=== PATIENT | female | born 1945 | race African-American/Black ===

== ENCOUNTER 2017-04-25 21:37 | Inpatient (IN) | payer MEDICARE, MEDICAID ==
[~2017-04-25] VITALS: Ht 149.9 cm; Wt 61.2 kg
[~2017-04-25 21:37] MED LIST: AM10 PO; AMLO10TA4 PO; ASPI-1073 PO; DOCU-138 PO; FERR-63 PO; FLUT16SP15; LISI40TA4 PO; LORA10TA7 PO; OMEP40CA34 PO; POTA10CA42 PO; [UNRECOGNIZED DRUG - CODE] PO
[2017-04-25] MEDS ORDERED: NITROGLYCERIN OINT 1GM/INCH UDPKT TD STA (21:43)
[2017-04-25] MEDS ORDERED: FUROSEMIDE 40MG/4ML VIAL IV STA (21:43)
[2017-04-25] MEDS ORDERED: ALBUTEROL (0.083%) 2.5MG/3ML NEB HHN STA (21:43)
[2017-04-25] MEDS ORDERED: METHYLPREDNISOLONE SOD SUCC 125 MG/2 ML VIAL IV STA (21:43)
[2017-04-25] MEDS ORDERED: IPRATROPIUM BROMIDE (0.02%) 0.5MG/2.5ML NEB HHN STA (21:43)
[2017-04-25] MEDS ORDERED: MAGNESIUM 2 G PREMIX 50 ML IV ONE (21:45)
[2017-04-25 22:30] LABS: BG BASE EXCESS 0.1 mmol/L (-2.0-2.0); BG BILEVEL POS AIRWAY PRESSURE 15/5; BG CARBOXYHEMOGLOBIN 0.7 % (0.5-1.5); BG DEOXYHEMOGLOBIN 2.1 % (0.0-5.0); BG FRACTION INSPIRED OXYGEN 50; BG HCO3 ACT 23.8 mmol/L (22.0-26.0); BG METHEMOGLOBIN 0.3 % (0.0-1.5); BG OXYGEN SATURATION 97.9 % (92.0-98.5); BG OXYHEMOGLOBIN 96.9 % (94.0-97.0); BG PCO2 35.2 mmHg (35.0-45.0); BG PH 7.447 (7.350-7.450); BG PO2 109.6 mmHg (75.0-100.0); BG SAMPLE SITE RIGHT RADIAL; BG TOTAL HEMOGLOBIN 12.7 g/dL (12.0-18.0); BG VENT MODE MASK - BIPAP
[2017-04-25 22:38] LABS: BASOPHILS % 0.7 % (0.0-2.0); HEMATOCRIT. 36.1 % (36.0-48.0); MEAN CORPUSCULAR HEMOGLOBIN 31.7 pg (28.0-32.0); MEAN CORPUSCULAR VOLUME 95.4 fL (81.0-99.0); MEAN PLATELET VOLUME 9.3 fl (7.4-10.4); MONOCYTES % 8.7 % (2.0-8.0); NEUTROPHILS % 65.6 % (40.0-76.0); PLATELET 171 x1000/uL (130-400); RED BLOOD CELL COUNT 3.78 mill/uL (4.2-5.4); RED CELL DISTRIBUTION WIDTH 12.9 % (11.6-14.6)
[2017-04-25 22:41] LABS: INR 1.1; PROTHROMBIN TIME 11.5 sec (9.4-11.6)
[2017-04-25 22:43] LABS: CHLORIDE 102 mEq/L (98-107)
[2017-04-25 22:55] LABS: CARBON DIOXIDE 27 mEq/L (21-32); TROPONIN I 0.36 ng/mL (0.00-0.04)
[2017-04-25] MEDS ORDERED: ASPIRIN 325MG TABLET PO ONE (23:15)
[2017-04-25] MEDS ORDERED: CLONIDINE 0.1MG TABLET PO PRN (23:30)
[2017-04-25] MEDS ORDERED: MAGNESIUM/ALUMINUM HYDROXIDE/SIMETHICONE 30ML UDC PO PRN (23:30)
[2017-04-25] MEDS ORDERED: ONDANSETRON HCL 4MG/2ML VIAL IV PRN (23:30)
[2017-04-25] MEDS ORDERED: DOCUSATE SODIUM 100MG CAPSULE PO PRN (23:30)
[2017-04-25] MEDS ORDERED: IPRATROPIUM/ALBUTEROL 0.5-3(2.5)MG/3ML NEB INH PRN (23:30)
[2017-04-25] MEDS ORDERED: ENOXAPARIN 40MG/0.4ML SYR SUBCUT SCH (23:30)
[2017-04-25] MEDS ORDERED: ACETAMINOPHEN 325MG TABLET PO PRN (23:30)
[2017-04-26] VITALS (14 sets, daily range): BP systolic 117–169; BP diastolic 52–74
[2017-04-26 00:45] LABS: CHLORIDE 104 mEq/L (98-107)
[2017-04-26 00:50] LABS: CARBON DIOXIDE 25 mEq/L (21-32)
[2017-04-26] MEDS ORDERED: ENOXAPARIN 40MG/0.4ML SYR SUBCUT SCH (02:15)
[2017-04-26] MEDS: METHYLPREDNISOLONE SOD SUCC 40 MG/ML VIAL IV SCH ×3 (05:40→21:54)
[2017-04-26 06:16] LABS: HEMATOCRIT. 36.1 % (36.0-48.0); HEMOGLOBIN. 12.2 g/dL (12.0-16.0); MEAN CORPUSCULAR HEMOGLOBIN 31.9 pg (28.0-32.0); MEAN CORPUSCULAR VOLUME 94.6 fL (81.0-99.0); MEAN PLATELET VOLUME 9.9 fl (7.4-10.4); PLATELET 172 x1000/uL (130-400); RED BLOOD CELL COUNT 3.82 mill/uL (4.2-5.4); RED CELL DISTRIBUTION WIDTH 12.7 % (11.6-14.6)
[2017-04-26 06:57] LABS: CREATINE KINASE MB FRACTION 2.7 ng/mL (0.5-3.6)
[2017-04-26 08:23] LABS: CLARITY URINE CLEAR (CLEAR); COLOR URINE YELLOW (YELLOW); GLUCOSE URINE NEGATIVE (NEGATIVE); KETONES URINE NEGATIVE (NEGATIVE); LEUKOCYTE ESTERASE URINE NEGATIVE (NEGATIVE); NITRITE URINE NEGATIVE (NEGATIVE); OCCULT BLOOD URINE NEGATIVE (NEGATIVE); PROTEIN URINE NEGATIVE (NEGATIVE); SPECIFIC GRAVITY URINE 1.017 (1.005-1.030); UROBILINOGEN URINE 0.2 E.U./dL (0.2-1.0)
[2017-04-26 08:32] LABS: *AMPHETAMINES SCREEN URINE NEGATIVE (NEGATIVE); *BARBITURATES SCREEN URINE NEGATIVE (NEGATIVE); *BENZODIAZEPINES SCREEN URINE NEGATIVE (NEGATIVE); *COCAINE SCREEN URINE NEGATIVE (NEGATIVE); CANNABINOID URINE SCREEN NEGATIVE (NEGATIVE); METHADONE URINE SCREEN NEGATIVE (NEGATIVE); OPIATES URINE SCREEN NEGATIVE (NEGATIVE); PHENCYCLIDINE URINE SCREEN NEGATIVE (NEGATIVE)
[2017-04-26] MEDS ORDERED: ENOXAPARIN 30MG/0.3ML SYR SUBCUT SCH (09:00)
[2017-04-26] MEDS ORDERED: POTASSIUM CHLORIDE 20MEQ TABLET SR PO NR (09:15)
[2017-04-26] MEDS: ASPIRIN 81MG EC TABLET PO SCH (09:35)
[2017-04-26] MEDS: GUAIFENESIN 600MG ER TABLET PO SCH ×2 (09:35→21:51)
[2017-04-26] MEDS: LORATADINE 10MG TABLET PO SCH (09:36)
[2017-04-26] MEDS: AMLODIPINE 10MG TABLET PO SCH (09:36)
[2017-04-26] MEDS: FERROUS SULFATE 325MG TABLET PO SCH ×2 (09:36→17:06)
[2017-04-26] MEDS: DOCUSATE SODIUM 100MG CAPSULE PO SCH (09:36)
[2017-04-26] MEDS: OMEPRAZOLE 20MG CAPSULE EXTENDED RELEASE PO SCH (09:46)
[2017-04-26] MEDS: POTASSIUM CHLORIDE 20MEQ TABLET SR PO SCH (09:46)
[2017-04-26] MEDS: LISINOPRIL 40MG TABLET PO SCH (09:47)
[2017-04-26] MEDS: FLUTICASONE PROPIONATE 50MCG/SPRAY BOTTLE BOTHNSTRLS SCH (11:19)
[2017-04-26] MEDS: FUROSEMIDE 40MG/4ML VIAL IVP SCH (11:30)
[2017-04-26] MEDS ORDERED: INFLUENZA VIRUS VACCINE 0.5ML SYR IM ONE (12:00)
[2017-04-26] MEDS ORDERED: PNEUMOCOCCAL 23-VAL P-SAC VAC 0.5 ML IM ONE (12:00)
[2017-04-26 13:12] LABS: PLATELET ESTIMATE NORMAL
[2017-04-26] MEDS: IPRATROPIUM/ALBUTEROL 0.5-3(2.5)MG/3ML NEB HHN SCH ×2 (14:15→20:32)
[2017-04-26] MEDS: HYDROCODONE/ACETAMINOPHEN 5/325MG TABLET PO PRN (16:00)
[2017-04-26 16:13] LABS: CREATINE KINASE MB FRACTION 3.3 ng/mL (0.5-3.6)
[2017-04-26 16:24] LABS: TROPONIN I 0.62 ng/mL (0.00-0.04)
[2017-04-26] MEDS: CALCIUM CARBONATE/VITAMIN D3 500MG TABLET PO SCH (17:06)
[2017-04-26] MEDS: DILTIAZEM HCL 60MG TABLET PO SCH ×2 (17:47→21:54)
[2017-04-26] MEDS: BUDESONIDE 0.5MG/2ML NEB HHN SCH (20:32)
[2017-04-26] MEDS: AMITRIPTYLINE 10MG TABLET PO SCH (21:51)
[2017-04-26] MEDS: ENOXAPARIN 60MG/0.6ML SYR SUBCUT SCH (21:54)
[2017-04-27] VITALS (13 sets, daily range): BP systolic 111–133; BP diastolic 46–60
[2017-04-27] MEDS: IPRATROPIUM/ALBUTEROL 0.5-3(2.5)MG/3ML NEB HHN SCH ×4 (01:35→20:42)
[2017-04-27] MEDS: METHYLPREDNISOLONE SOD SUCC 40 MG/ML VIAL IV SCH ×2 (06:50→13:31)
[2017-04-27] MEDS: DILTIAZEM HCL 60MG TABLET PO SCH ×3 (06:51→18:08)
[2017-04-27] MEDS: BUDESONIDE 0.5MG/2ML NEB HHN SCH ×2 (08:56→20:42)
[2017-04-27] MEDS ORDERED: ENOXAPARIN 40MG/0.4ML SYR SUBCUT SCH (09:00)
[2017-04-27] MEDS: FERROUS SULFATE 325MG TABLET PO SCH ×2 (09:26→18:08)
[2017-04-27] MEDS: OMEPRAZOLE 20MG CAPSULE EXTENDED RELEASE PO SCH (09:26)
[2017-04-27] MEDS: FUROSEMIDE 40MG/4ML VIAL IVP SCH (09:27)
[2017-04-27] MEDS: FLUTICASONE PROPIONATE 50MCG/SPRAY BOTTLE BOTHNSTRLS SCH (09:27)
[2017-04-27] MEDS: LORATADINE 10MG TABLET PO SCH (09:28)
[2017-04-27] MEDS: POTASSIUM CHLORIDE 20MEQ TABLET SR PO SCH (09:29)
[2017-04-27] MEDS: GUAIFENESIN 600MG ER TABLET PO SCH ×2 (09:29→22:03)
[2017-04-27] MEDS: ASPIRIN 81MG EC TABLET PO SCH (09:29)
[2017-04-27] MEDS: DOCUSATE SODIUM 100MG CAPSULE PO SCH (09:29)
[2017-04-27] MEDS: AMLODIPINE 10MG TABLET PO SCH (09:30)
[2017-04-27] MEDS: LISINOPRIL 40MG TABLET PO SCH (09:31)
[2017-04-27] MEDS: ENOXAPARIN 60MG/0.6ML SYR SUBCUT SCH ×2 (09:31→22:06)
[2017-04-27] MEDS: CALCIUM CARBONATE/VITAMIN D3 500MG TABLET PO SCH ×2 (13:31→18:07)
[2017-04-27] MEDS ORDERED: POTASSIUM CHLORIDE 20MEQ/PACKET GT NR (14:30)
[2017-04-27] MEDS ORDERED: POTASSIUM CHLORIDE 20MEQ TABLET SR PO ONE (14:30)
[2017-04-27] MEDS: PREDNISONE 20MG TABLET PO SCH (18:09)
[2017-04-27] MEDS: AMITRIPTYLINE 10MG TABLET PO SCH (22:03)
[2017-04-27] MEDS: SILDENAFIL CITRATE 20MG TABLET PO SCH (22:05)
[2017-04-28] VITALS (12 sets, daily range): BP systolic 101–139; BP diastolic 47–63
[2017-04-28] MEDS: IPRATROPIUM/ALBUTEROL 0.5-3(2.5)MG/3ML NEB HHN SCH ×4 (00:38→21:00)
[2017-04-28] MEDS: SILDENAFIL CITRATE 20MG TABLET PO SCH ×3 (05:21→22:05)
[2017-04-28] MEDS: DILTIAZEM HCL 60MG TABLET PO SCH ×4 (05:22→18:36)
[2017-04-28 07:11] LABS: HEMATOCRIT. 36.3 % (36.0-48.0); HEMOGLOBIN. 11.7 g/dL (12.0-16.0); MEAN CORPUSCULAR HEMOGLOBIN 30.6 pg (28.0-32.0); MEAN CORPUSCULAR VOLUME 94.9 fL (81.0-99.0); MEAN PLATELET VOLUME 10.2 fl (7.4-10.4); PLATELET 189 x1000/uL (130-400); RED BLOOD CELL COUNT 3.82 mill/uL (4.2-5.4)
[2017-04-28 07:54] LABS: CARBON DIOXIDE 23 mEq/L (21-32); CHLORIDE 106 mEq/L (98-107)
[2017-04-28] MEDS: BUDESONIDE 0.5MG/2ML NEB HHN SCH ×2 (08:00→21:00)
[2017-04-28] MEDS: FUROSEMIDE 40MG/4ML VIAL IVP SCH (10:07)
[2017-04-28] MEDS: FLUTICASONE PROPIONATE 50MCG/SPRAY BOTTLE BOTHNSTRLS SCH (10:07)
[2017-04-28] MEDS: ENOXAPARIN 60MG/0.6ML SYR SUBCUT SCH ×2 (10:07→22:04)
[2017-04-28] MEDS: FERROUS SULFATE 325MG TABLET PO SCH ×2 (10:08→18:33)
[2017-04-28] MEDS: AMLODIPINE 10MG TABLET PO SCH (10:08)
[2017-04-28] MEDS: CALCIUM CARBONATE/VITAMIN D3 500MG TABLET PO SCH ×2 (10:08→18:33)
[2017-04-28] MEDS: POTASSIUM CHLORIDE 20MEQ TABLET SR PO SCH (10:08)
[2017-04-28] MEDS: OMEPRAZOLE 20MG CAPSULE EXTENDED RELEASE PO SCH (10:08)
[2017-04-28] MEDS: LORATADINE 10MG TABLET PO SCH (10:09)
[2017-04-28] MEDS: ASPIRIN 81MG EC TABLET PO SCH (10:09)
[2017-04-28] MEDS: DOCUSATE SODIUM 100MG CAPSULE PO SCH (10:09)
[2017-04-28] MEDS: PREDNISONE 20MG TABLET PO SCH (10:09)
[2017-04-28] MEDS: LISINOPRIL 40MG TABLET PO SCH (10:09)
[2017-04-28] MEDS: GUAIFENESIN 600MG ER TABLET PO SCH ×2 (10:23→22:04)
[2017-04-28 13:40] LABS: PLATELET ESTIMATE NORMAL
[2017-04-28] MEDS: AMITRIPTYLINE 10MG TABLET PO SCH (22:05)
[2017-04-29] VITALS (12 sets, daily range): BP systolic 102–130; BP diastolic 42–69
[2017-04-29] MEDS: IPRATROPIUM/ALBUTEROL 0.5-3(2.5)MG/3ML NEB HHN SCH ×4 (00:50→20:31)
[2017-04-29] MEDS: DILTIAZEM HCL 60MG TABLET PO SCH ×4 (01:00→17:37)
[2017-04-29] MEDS: SILDENAFIL CITRATE 20MG TABLET PO SCH ×3 (06:27→22:00)
[2017-04-29] MEDS: BUDESONIDE 0.5MG/2ML NEB HHN SCH ×2 (09:07→20:29)
[2017-04-29] MEDS: FUROSEMIDE 40MG/4ML VIAL IVP SCH (10:04)
[2017-04-29] MEDS: ENOXAPARIN 60MG/0.6ML SYR SUBCUT SCH ×2 (10:04→20:51)
[2017-04-29] MEDS: FLUTICASONE PROPIONATE 50MCG/SPRAY BOTTLE BOTHNSTRLS SCH (10:05)
[2017-04-29] MEDS: GUAIFENESIN 600MG ER TABLET PO SCH ×2 (10:05→20:51)
[2017-04-29] MEDS: FERROUS SULFATE 325MG TABLET PO SCH ×2 (10:05→17:36)
[2017-04-29] MEDS: PREDNISONE 20MG TABLET PO SCH (10:05)
[2017-04-29] MEDS: LORATADINE 10MG TABLET PO SCH (10:05)
[2017-04-29] MEDS: CALCIUM CARBONATE/VITAMIN D3 500MG TABLET PO SCH ×2 (10:06→17:36)
[2017-04-29] MEDS: FAMOTIDINE 20MG TABLET PO SCH (10:06)
[2017-04-29] MEDS: DOCUSATE SODIUM 100MG CAPSULE PO SCH (10:06)
[2017-04-29] MEDS: POTASSIUM CHLORIDE 20MEQ TABLET SR PO SCH (10:06)
[2017-04-29] MEDS: ASPIRIN 81MG EC TABLET PO SCH (10:06)
[2017-04-29] MEDS: LISINOPRIL 40MG TABLET PO SCH (10:15)
[2017-04-29] MEDS: AMLODIPINE 10MG TABLET PO SCH (10:15)
[2017-04-29] MEDS: AMITRIPTYLINE 10MG TABLET PO SCH (20:50)
[2017-04-30] VITALS (9 sets, daily range): BP systolic 91–140; BP diastolic 37–90
[2017-04-30] MEDS: IPRATROPIUM/ALBUTEROL 0.5-3(2.5)MG/3ML NEB HHN SCH ×3 (03:20→13:49)
[2017-04-30] MEDS: SILDENAFIL CITRATE 20MG TABLET PO SCH ×2 (05:57→14:12)
[2017-04-30] MEDS: DILTIAZEM HCL 60MG TABLET PO SCH ×3 (05:57→12:00)
[2017-04-30 06:23] LABS: BASOPHILS % 0.3 % (0.0-2.0); HEMATOCRIT. 40.8 % (36.0-48.0); HEMOGLOBIN. 13.4 g/dL (12.0-16.0); LYMPHOCYTES % 14.2 % (20.0-50.0); MEAN CORPUSCULAR HEMOGLOBIN 31.2 pg (28.0-32.0); MEAN CORPUSCULAR VOLUME 95.3 fL (81.0-99.0); MEAN PLATELET VOLUME 9.5 fl (7.4-10.4); MONOCYTES % 11.7 % (2.0-8.0); NEUTROPHILS % 73.8 % (40.0-76.0); PLATELET 202 x1000/uL (130-400); RED BLOOD CELL COUNT 4.28 mill/uL (4.2-5.4); RED CELL DISTRIBUTION WIDTH 13.5 % (11.6-14.6)
[2017-04-30 06:46] LABS: CARBON DIOXIDE 28 mEq/L (21-32); CHLORIDE 102 mEq/L (98-107)
[2017-04-30] MEDS: PREDNISONE 20MG TABLET PO SCH (08:30)
[2017-04-30] MEDS: GUAIFENESIN 600MG ER TABLET PO SCH (08:30)
[2017-04-30] MEDS: LORATADINE 10MG TABLET PO SCH (08:30)
[2017-04-30] MEDS: FERROUS SULFATE 325MG TABLET PO SCH (08:30)
[2017-04-30] MEDS: ENOXAPARIN 60MG/0.6ML SYR SUBCUT SCH (08:30)
[2017-04-30] MEDS: LISINOPRIL 40MG TABLET PO SCH (08:31)
[2017-04-30] MEDS: CALCIUM CARBONATE/VITAMIN D3 500MG TABLET PO SCH (08:31)
[2017-04-30] MEDS: FAMOTIDINE 20MG TABLET PO SCH (08:31)
[2017-04-30] MEDS: POTASSIUM CHLORIDE 20MEQ TABLET SR PO SCH (08:31)
[2017-04-30] MEDS: AMLODIPINE 10MG TABLET PO SCH (08:31)
[2017-04-30] MEDS: DOCUSATE SODIUM 100MG CAPSULE PO SCH (08:31)
[2017-04-30] MEDS: ASPIRIN 81MG EC TABLET PO SCH (08:31)
[2017-04-30] MEDS: FUROSEMIDE 40MG/4ML VIAL IVP SCH (08:32)
[2017-04-30] MEDS: HYDROCODONE/ACETAMINOPHEN 5/325MG TABLET PO PRN (08:33)
[2017-04-30] MEDS ORDERED: DILT240C91 PO (09:49)
[2017-04-30] MEDS ORDERED: P20 PO (09:49)
[2017-04-30] MEDS ORDERED: REV20 PO (09:49)
[2017-04-30] MEDS ORDERED: ALBU6.7H INH (09:49)
[2017-05-01 09:11] LABS: ANTI-NUCLEAR ANTIBODIES DIRECT Negative (Negative); DRVVT LA 40.6 sec (0.0-47.0); PTT-LA 43.5 sec (0.0-51.9)
[2017-05-01 10:07] LABS: LUPUS ANTICOAG INTERPRETATION Comment: (.)
[2017-05-01 13:09] LABS: ANTI-MYELOPEROXIDASE AB < 9.0 U/mL (0.0-9.0); ANTI-PROTEINASE 3 ABS < 3.5 U/mL (0.0-3.5)
[2017-05-01 14:25] LABS: ATYPICAL P-ANCA <1:20 titer (Neg:<1:20); CYTOPLASMIC C-ANCA <1:20 titer (Neg:<1:20); PERINUCLEAR P-ANCA <1:20 titer (Neg:<1:20)
== END 2017-04-30 17:11 | disposition home or self-care (01) | DRG 291 ==
LOC: ER 21:54 → 5EST 23:06 → EDBEDREQ 23:06 → EDBEDREQTM 23:06 → CANRESERV 04-26 00:41 → ENRESERV 04-26 00:41
PROVIDERS: ADMIT Internal Medicine; ATTEND Internal Medicine
PROC: 5A09357 Assistance with Respiratory Ventilation, Less than 24 Consecutive Hours, Continuous Positive Airway Pressure (ICD-10-PCS; principal; 2017-04-25)
DX: I11.0 Hypertensive heart disease with heart failure (principal); J96.20 Acute and chronic respiratory failure, unspecified whether with hypoxia or hypercapnia; J84.9 Interstitial pulmonary disease, unspecified; Q25.6 Stenosis of pulmonary artery; I08.1 Rheumatic disorders of both mitral and tricuspid valves; I24.9 Acute ischemic heart disease, unspecified; I31.3 Pericardial effusion (noninflammatory); I50.43 Acute on chronic combined systolic (congestive) and diastolic (congestive) heart failure; I48.91 Unspecified atrial fibrillation; D64.9 Anemia, unspecified; N28.9 Disorder of kidney and ureter, unspecified; I70.0 Atherosclerosis of aorta; K21.9 Gastro-esophageal reflux disease without esophagitis; E04.1 Nontoxic single thyroid nodule; K44.9 Diaphragmatic hernia without obstruction or gangrene; J44.9 Chronic obstructive pulmonary disease, unspecified; K80.20 Calculus of gallbladder without cholecystitis without obstruction; M54.30 Sciatica, unspecified side; R59.0 Localized enlarged lymph nodes; Z99.81 Dependence on supplemental oxygen; Z88.0 Allergy status to penicillin; Z79.82 Long term (current) use of aspirin; Z79.899 Other long term (current) drug therapy; Z87.891 Personal history of nicotine dependence; Z87.01 Personal history of pneumonia (recurrent)
CPT/HCPCS: 36415; 36600; 71010; 71250; 78582; 80048; 80053; 80061; 80305; 81003; 82375; 82550; 82553; 82805; 83520; 83605; 83690; 83735; 83880; 84443; 84484; 85025; 85379; 85610; 85613; 85732; 86038; 86256; 86431; 87040; 87070; 90686; 90732; 93005; 93306; 93970; 94640; 94660; 94664; 96374; 96375; 97116; 97162; 99291; A9558; J1650; J1940; J2920; J2930; J3475; J7512; J7611; J7620; J7626

== ENCOUNTER 2018-07-09 03:02 | Inpatient (IN) | payer MEDICARE, MEDICAID ==
[~2018-07-09] VITALS: Ht 149.9 cm; Wt 59.0 kg
[2018-07-09] VITALS (8 sets, daily range): BP systolic 96–147; BP diastolic 49–84
[~2018-07-09 03:02] MED LIST changes: +ALBU6.7H INH; -AM10 PO; -AMLO10TA4 PO; -ASPI-1073 PO; +AZIT250T12 PO; +DILT30TA38 PO; -FERR-63 PO; -FLUT16SP15; -LISI40TA4 PO; -LORA10TA7 PO; -OMEP40CA34 PO; +P20 MT; -POTA10CA42 PO; +PRED10TA23 MT; +PRED5TAB MT; +REV20 PO; -[UNRECOGNIZED DRUG - CODE] PO
[2018-07-09] MEDS ORDERED: IPRATROPIUM BROMIDE (0.02%) 0.5MG/2.5ML NEB HHN STA (03:25)
[2018-07-09] MEDS ORDERED: MAGNESIUM 2 G PREMIX 50 ML IV ONE (03:30)
[2018-07-09] MEDS: ALBUTEROL (0.083%) 2.5MG/3ML NEB HHN SCH ×3 (03:40→05:25)
[2018-07-09 03:44] LABS: BASOPHILS % 0.4 % (0.0-2.0); EOSINOPHILS % 5.1 % (0.0-5.0); HEMATOCRIT. 41.3 % (36.0-48.0); MEAN CORPUSCULAR HEMOGLOBIN 29.3 pg (28.0-32.0); MEAN CORPUSCULAR VOLUME 92.8 fL (81.0-99.0); MEAN PLATELET VOLUME 9.1 fl (7.4-10.4); MONOCYTES % 11.7 % (2.0-8.0); NEUTROPHILS % 43.8 % (40.0-76.0); PLATELET 128 x1000/uL (130-400); RED BLOOD CELL COUNT 4.45 mill/uL (4.2-5.4)
[2018-07-09 03:47] LABS: CHLORIDE 110 mEq/L (98-107)
[2018-07-09] MEDS ORDERED: ENOXAPARIN 60MG/0.6ML SYR SUBCUT SCH (05:00)
[2018-07-09 05:02] LABS: PARTIAL THROMBOPLASTIN TIME 29.4 sec (23.4-31.0)
[2018-07-09] MEDS ORDERED: LEVOFLOXACIN 750MG PREMIX 150 ML IV ONE (06:00)
[2018-07-09] MEDS ORDERED: IOHEXOL-350 100 ML BOTTLE ONE (06:56)
[2018-07-09] MEDS ORDERED: ACETAMINOPHEN 325MG TABLET PO PRN (09:15)
[2018-07-09] MEDS ORDERED: GUAIFENESIN-DM 200MG-20MG/10ML UDC PO PRN (09:15)
[2018-07-09] MEDS ORDERED: FUROSEMIDE 40MG/4ML VIAL IVP SCH ×2 (09:15→17:00)
[2018-07-09] MEDS ORDERED: ONDANSETRON HCL 4MG/2ML INJ IV PRN (09:15)
[2018-07-09] MEDS ORDERED: IPRATROPIUM/ALBUTEROL 0.5-3(2.5)MG/3ML NEB HHN PRN ×2 (09:30→12:00)
[2018-07-09] MEDS ORDERED: AMLODIPINE 5MG TABLET PO SCH (09:30)
[2018-07-09] MEDS ORDERED: LISI40TA4 MT (10:16)
[2018-07-09] MEDS ORDERED: ATOR20TA65 PO (10:16)
[2018-07-09] MEDS ORDERED: DILT240T12 MT (10:16)
[2018-07-09] MEDS ORDERED: FLUT15.88 BOTHNSTRLS (10:16)
[2018-07-09] MEDS ORDERED: RANI150C12 MT (10:16)
[2018-07-09] MEDS ORDERED: DILT120C11 MT (10:16)
[2018-07-09] MEDS ORDERED: UMEC1DIS IH (10:16)
[2018-07-09] MEDS ORDERED: TIOT18CA3 INH (10:16)
[2018-07-09] MEDS ORDERED: METO25TA6 MT (10:16)
[2018-07-09 11:26] LABS: BG BILEVEL POS AIRWAY PRESSURE 15/5; BG CARBOXYHEMOGLOBIN 0.9 % (0.5-1.5); BG DEOXYHEMOGLOBIN 2.1 % (0.0-5.0); BG FRACTION INSPIRED OXYGEN 50; BG HCO3 ACT 23.7 mmol/L (22.0-26.0); BG METHEMOGLOBIN 0.4 % (0.0-1.5); BG OXYGEN SATURATION 97.9 % (92.0-98.5); BG OXYHEMOGLOBIN 96.6 % (94.0-97.0); BG PCO2 39.4 mmHg (35.0-45.0); BG PH 7.397 (7.350-7.450); BG PO2 100.9 mmHg (75.0-100.0); BG SAMPLE SITE LEFT BRACHIAL; BG VENT MODE MASK - BIPAP; BG VENT RATE 16 set
[2018-07-09] MEDS: IPRATROPIUM/ALBUTEROL 0.5-3(2.5)MG/3ML NEB HHN SCH ×3 (14:18→20:23)
[2018-07-09] MEDS: BUDESONIDE 0.5MG/2ML NEB HHN SCH ×2 (14:19→20:23)
[2018-07-09] MEDS: DILTIAZEM HCL 30MG TABLET PO SCH ×2 (15:01→22:17)
[2018-07-09] MEDS: SILDENAFIL CITRATE 20MG TABLET PO SCH ×2 (15:02→22:17)
[2018-07-09] MEDS ORDERED: MONTELUKAST SODIUM 10MG TABLET PO SCH (17:00)
[2018-07-10] VITALS (12 sets, daily range): BP systolic 92–133; BP diastolic 46–75
[2018-07-10] MEDS: IPRATROPIUM/ALBUTEROL 0.5-3(2.5)MG/3ML NEB HHN SCH ×4 (00:32→12:10)
[2018-07-10 06:21] LABS: BASOPHILS % 0.6 % (0.0-2.0); EOSINOPHILS % 2.2 % (0.0-5.0); HEMATOCRIT. 37.2 % (36.0-48.0); HEMOGLOBIN. 12.2 g/dL (12.0-16.0); LYMPHOCYTES % 24.2 % (20.0-50.0); MEAN CORPUSCULAR VOLUME 91.6 fL (81.0-99.0); MEAN PLATELET VOLUME 9.8 fl (7.4-10.4); MONOCYTES % 12.5 % (2.0-8.0); NEUTROPHILS % 60.5 % (40.0-76.0); PLATELET 131 x1000/uL (130-400); RED BLOOD CELL COUNT 4.06 mill/uL (4.2-5.4); RED CELL DISTRIBUTION WIDTH 15.6 % (11.6-14.6)
[2018-07-10] MEDS: SILDENAFIL CITRATE 20MG TABLET PO SCH ×3 (06:36→21:36)
[2018-07-10] MEDS: DILTIAZEM HCL 30MG TABLET PO SCH ×3 (06:36→21:37)
[2018-07-10] MEDS: BUDESONIDE 0.5MG/2ML NEB HHN SCH ×2 (07:19→21:21)
[2018-07-10] MEDS: ENOXAPARIN 30MG/0.3ML SYR SUBCUT SCH (08:28)
[2018-07-10] MEDS ORDERED: FUROSEMIDE 40MG/4ML VIAL IVP NR (10:30)
[2018-07-10] MEDS ORDERED: BENZONATATE 100MG CAPSULE PO PRN (10:30)
[2018-07-10] MEDS ORDERED: DILTIAZEM HCL 60MG TABLET PO SCH (14:00)
[2018-07-10] MEDS ORDERED: SODIUM CHLORIDE 0.9% 1,000 ML IV SCH (16:30)
[2018-07-10 19:15] LABS: *AMPHETAMINES SCREEN URINE NEGATIVE (NEGATIVE); *BARBITURATES SCREEN URINE NEGATIVE (NEGATIVE); *BENZODIAZEPINES SCREEN URINE NEGATIVE (NEGATIVE); *COCAINE SCREEN URINE NEGATIVE (NEGATIVE)
[2018-07-10 19:16] LABS: CANNABINOID URINE SCREEN NEGATIVE (NEGATIVE); METHADONE URINE SCREEN NEGATIVE (NEGATIVE); OPIATES URINE SCREEN NEGATIVE (NEGATIVE); PHENCYCLIDINE URINE SCREEN NEGATIVE (NEGATIVE)
[2018-07-11] VITALS (10 sets, daily range): BP systolic 110–143; BP diastolic 57–79
[2018-07-11] MEDS: SILDENAFIL CITRATE 20MG TABLET PO SCH ×2 (05:57→13:43)
[2018-07-11] MEDS: DILTIAZEM HCL 30MG TABLET PO SCH (05:58)
[2018-07-11 06:57] LABS: BASOPHILS % 0.6 % (0.0-2.0); EOSINOPHILS % 2.9 % (0.0-5.0); HEMATOCRIT. 37.9 % (36.0-48.0); HEMOGLOBIN. 12.2 g/dL (12.0-16.0); LYMPHOCYTES % 23.2 % (20.0-50.0); MEAN CORPUSCULAR HEMOGLOBIN 29.6 pg (28.0-32.0); MEAN CORPUSCULAR VOLUME 91.7 fL (81.0-99.0); MEAN PLATELET VOLUME 9.8 fl (7.4-10.4); MONOCYTES % 14.9 % (2.0-8.0); NEUTROPHILS % 58.4 % (40.0-76.0); PLATELET 128 x1000/uL (130-400); RED BLOOD CELL COUNT 4.14 mill/uL (4.2-5.4); RED CELL DISTRIBUTION WIDTH 15.8 % (11.6-14.6)
[2018-07-11] MEDS: BUDESONIDE 0.5MG/2ML NEB HHN SCH (08:05)
[2018-07-11] MEDS: ENOXAPARIN 30MG/0.3ML SYR SUBCUT SCH (08:17)
[2018-07-11] MEDS ORDERED: FUROSEMIDE 20MG TABLET PO SCH (10:30)
[2018-07-11 12:42] LABS: T4 FREE 1.21 ng/dL (0.76-1.46)
[2018-07-11] MEDS ORDERED: NA PHOS,M-B/NA PHOS,DI-BA ENEMA 118ML PR NR (13:15)
[2018-07-11] MEDS ORDERED: LACTULOSE 20G/30ML UDC PO NR (13:15)
[2018-07-11] MEDS ORDERED: VERA80TA2 PO (14:00)
[2018-07-11] MEDS ORDERED: POLY17PO3 MT (14:00)
[2018-07-11] MEDS ORDERED: VERAPAMIL HCL 80 MG TABLET PO SCH (14:00)
[2018-07-11] MEDS ORDERED: FURO20TA4 PO (14:00)
[2018-07-11] MEDS ORDERED: FURO40TA5 MT (14:03)
[2018-07-12] MEDS ORDERED: POLYETHYLENE GLYCOL 3350 (17GM) 1 DOSE PACK PO SCH (09:00)
== END 2018-07-11 18:00 | disposition home or self-care (01) | DRG 871 ==
LOC: ER 03:25 → EDBEDREQ 05:02 → EDBEDREQTM 05:02 → 3WST 06:09 → EDBEDREQSVC 06:12 → EDBEDREQTM 06:12 → ENRESERV 07:41
PROVIDERS: ADMIT Internal Medicine; ATTEND Internal Medicine
PROC: 5A09357 Assistance with Respiratory Ventilation, Less than 24 Consecutive Hours, Continuous Positive Airway Pressure (ICD-10-PCS; principal; 2018-07-09)
DX: A41.9 Sepsis, unspecified organism (principal); I50.33 Acute on chronic diastolic (congestive) heart failure; J96.20 Acute and chronic respiratory failure, unspecified whether with hypoxia or hypercapnia; J18.9 Pneumonia, unspecified organism; I13.0 Hypertensive heart and chronic kidney disease with heart failure and stage 1 through stage 4 chronic kidney disease, or unspecified chronic kidney disease; E44.1 Mild protein-calorie malnutrition; J44.1 Chronic obstructive pulmonary disease with (acute) exacerbation; J44.0 Chronic obstructive pulmonary disease with (acute) lower respiratory infection; I42.1 Obstructive hypertrophic cardiomyopathy; I45.10 Unspecified right bundle-branch block; R59.0 Localized enlarged lymph nodes; I08.0 Rheumatic disorders of both mitral and aortic valves; D64.9 Anemia, unspecified; N18.3 Chronic kidney disease, stage 3 (moderate); Z99.81 Dependence on supplemental oxygen; E87.8 Other disorders of electrolyte and fluid balance, not elsewhere classified; I27.20 Pulmonary hypertension, unspecified; I48.91 Unspecified atrial fibrillation; M54.30 Sciatica, unspecified side; E07.9 Disorder of thyroid, unspecified; F16.90 Hallucinogen use, unspecified, uncomplicated; I25.10 Atherosclerotic heart disease of native coronary artery without angina pectoris; I73.9 Peripheral vascular disease, unspecified; Z82.49 Family history of ischemic heart disease and other diseases of the circulatory system; Z87.01 Personal history of pneumonia (recurrent); Z87.891 Personal history of nicotine dependence; Z68.26 Body mass index [BMI] 26.0-26.9, adult; Z88.0 Allergy status to penicillin; Z79.899 Other long term (current) drug therapy; Z71.51 Drug abuse counseling and surveillance of drug abuser
CPT/HCPCS: 36415; 36600; 71045; 71275; 80048; 80305; 82375; 82805; 83735; 83880; 84145; 84439; 84481; 84484; 85379; 87804; 93005; 94640; 94660; 96365; 96372; 96375; 97116; 97162; 99285; J1650; J1940; J1956; J3475; J7030; J7611; J7620; J7626; Q9967

== ENCOUNTER 2018-07-29 06:42 | Inpatient (IN) | payer MEDICARE, MEDICAID ==
[2018-07-29] VITALS (7 sets, daily range): BP systolic 117–138; BP diastolic 56–67
[~2018-07-29] VITALS: Ht 149.9 cm; Wt 55.4 kg
[~2018-07-29 06:42] MED LIST changes: +ATOR20TA65 PO; -AZIT250T12 PO; -DILT30TA38 PO; +FLUT15.88 BOTHNSTRLS; +FURO40TA5 MT; -P20 MT; +POLY17PO3 MT; -PRED10TA23 MT; -PRED5TAB MT; +TIOT18CA3 INH; +VERA80TA2 PO
[2018-07-29] MEDS ORDERED: IPRATROPIUM BROMIDE (0.02%) 0.5MG/2.5ML NEB HHN STA (07:10)
[2018-07-29] MEDS ORDERED: METHYLPREDNISOLONE SOD SUCC 125 MG/2 ML VIAL IV STA (07:10)
[2018-07-29] MEDS ORDERED: ALBUTEROL (0.083%) 2.5MG/3ML NEB HHN STA (07:10)
[2018-07-29] MEDS ORDERED: MAGNESIUM 2 G PREMIX 50 ML IV ONE (07:15)
[2018-07-29 08:27] LABS: BASOPHILS % 0.6 % (0.0-2.0); EOSINOPHILS % 6.4 % (0.0-5.0); HEMATOCRIT. 35.4 % (36.0-48.0); HEMOGLOBIN. 11.3 g/dL (12.0-16.0); MEAN CORPUSCULAR HEMOGLOBIN 29.6 pg (28.0-32.0); MEAN CORPUSCULAR VOLUME 92.4 fL (81.0-99.0); MEAN PLATELET VOLUME 9.5 fl (7.4-10.4); MONOCYTES % 11.4 % (2.0-8.0); NEUTROPHILS % 58.6 % (40.0-76.0); PLATELET 161 x1000/uL (130-400); RED BLOOD CELL COUNT 3.83 mill/uL (4.2-5.4); RED CELL DISTRIBUTION WIDTH 15.7 % (11.6-14.6)
[2018-07-29 08:34] LABS: CHLORIDE 103 mEq/L (98-107)
[2018-07-29] MEDS ORDERED: ASPIRIN 81MG TABLET PO ONE (10:15)
[2018-07-29] MEDS ORDERED: ONDANSETRON HCL 4MG/2ML INJ IV PRN (10:45)
[2018-07-29] MEDS ORDERED: GUAIFENESIN-DM 200MG-20MG/10ML UDC PO PRN (10:45)
[2018-07-29] MEDS ORDERED: ACETAMINOPHEN 325MG TABLET PO PRN (10:45)
[2018-07-29] MEDS ORDERED: IPRATROPIUM/ALBUTEROL 0.5-3(2.5)MG/3ML NEB HHN PRN (10:45)
[2018-07-29] MEDS ORDERED: FUROSEMIDE 20MG/2ML VIAL IVP NR (12:45)
[2018-07-29] MEDS ORDERED: AMBR5TAB3 PO (12:55)
[2018-07-29] MEDS: METHYLPREDNISOLONE SOD SUCC 40 MG/ML VIAL IV SCH ×2 (13:44→21:40)
[2018-07-29] MEDS: ENOXAPARIN 30MG/0.3ML SYR SUBCUT SCH (13:45)
[2018-07-29] MEDS: POTASSIUM CHLORIDE 20MEQ TABLET SR PO SCH (15:05)
[2018-07-29] MEDS: SILDENAFIL CITRATE 20MG TABLET PO SCH ×2 (15:05→22:12)
[2018-07-29] MEDS: IPRATROPIUM/ALBUTEROL 0.5-3(2.5)MG/3ML NEB HHN SCH ×2 (15:32→20:48)
[2018-07-29] MEDS: VERAPAMIL HCL 40MG TABLET PO SCH ×2 (15:47→22:13)
[2018-07-29] MEDS: MONTELUKAST SODIUM 10MG TABLET PO SCH (18:21)
[2018-07-29] MEDS: GUAIFENESIN 600MG ER TABLET PO SCH (21:29)
[2018-07-29] MEDS: FUROSEMIDE 20MG TABLET PO SCH (21:29)
[2018-07-30] VITALS (10 sets, daily range): BP systolic 99–129; BP diastolic 42–70
[2018-07-30] MEDS: IPRATROPIUM/ALBUTEROL 0.5-3(2.5)MG/3ML NEB HHN SCH ×5 (01:06→16:00)
[2018-07-30] MEDS: METHYLPREDNISOLONE SOD SUCC 40 MG/ML VIAL IV SCH (05:30)
[2018-07-30] MEDS: SILDENAFIL CITRATE 20MG TABLET PO SCH ×2 (05:53→13:59)
[2018-07-30] MEDS: VERAPAMIL HCL 40MG TABLET PO SCH ×2 (05:53→13:58)
[2018-07-30 06:55] LABS: BASOPHILS % 0.3 % (0.0-2.0); EOSINOPHILS % 0.1 % (0.0-5.0); HEMATOCRIT. 32.9 % (36.0-48.0); HEMOGLOBIN. 10.5 g/dL (12.0-16.0); LYMPHOCYTES % 10.5 % (20.0-50.0); MEAN CORPUSCULAR HEMOGLOBIN 29.1 pg (28.0-32.0); MEAN CORPUSCULAR VOLUME 91.4 fL (81.0-99.0); MEAN PLATELET VOLUME 9.9 fl (7.4-10.4); MONOCYTES % 5.1 % (2.0-8.0); PLATELET 177 x1000/uL (130-400); RED CELL DISTRIBUTION WIDTH 15.6 % (11.6-14.6)
[2018-07-30] MEDS: POTASSIUM CHLORIDE 20MEQ TABLET SR PO SCH (08:34)
[2018-07-30] MEDS: FUROSEMIDE 20MG TABLET PO SCH (08:34)
[2018-07-30] MEDS: GUAIFENESIN 600MG ER TABLET PO SCH (08:34)
[2018-07-30] MEDS ORDERED: ASPIRIN 81MG TABLET PO SCH (09:00)
[2018-07-30 12:47] LABS: T4 FREE 1.31 ng/dL (0.76-1.46)
[2018-07-30] MEDS: ENOXAPARIN 30MG/0.3ML SYR SUBCUT SCH (13:58)
[2018-07-30 16:07] LABS: CLARITY URINE CLEAR (CLEAR); COLOR URINE YELLOW (YELLOW); KETONES URINE NEGATIVE (NEGATIVE); LEUKOCYTE ESTERASE URINE NEGATIVE (NEGATIVE); NITRITE URINE NEGATIVE (NEGATIVE); OCCULT BLOOD URINE NEGATIVE (NEGATIVE); PROTEIN URINE NEGATIVE (NEGATIVE); UROBILINOGEN URINE 0.2 E.U./dL (0.2-1.0)
[2018-07-30 16:30] LABS: *AMPHETAMINES SCREEN URINE NEGATIVE (NEGATIVE); *BARBITURATES SCREEN URINE NEGATIVE (NEGATIVE); *BENZODIAZEPINES SCREEN URINE NEGATIVE (NEGATIVE); *COCAINE SCREEN URINE NEGATIVE (NEGATIVE); METHADONE URINE SCREEN NEGATIVE (NEGATIVE); OPIATES URINE SCREEN NEGATIVE (NEGATIVE)
[2018-07-30 16:31] LABS: CANNABINOID URINE SCREEN NEGATIVE (NEGATIVE); PHENCYCLIDINE URINE SCREEN NEGATIVE (NEGATIVE)
[2018-07-30] MEDS ORDERED: PREDNISONE 20MG TABLET PO SCH (17:00)
[2018-07-30] MEDS: MONTELUKAST SODIUM 10MG TABLET PO SCH (17:40)
== END 2018-07-30 17:42 | disposition home or self-care (01) | DRG 291 ==
LOC: ER 06:42 → 3WST 10:34 → ENRESERV 11:04
PROVIDERS: ADMIT Internal Medicine; ATTEND Internal Medicine
PROC: 5A09357 Assistance with Respiratory Ventilation, Less than 24 Consecutive Hours, Continuous Positive Airway Pressure (ICD-10-PCS; principal; 2018-07-29)
DX: I13.0 Hypertensive heart and chronic kidney disease with heart failure and stage 1 through stage 4 chronic kidney disease, or unspecified chronic kidney disease (principal); J96.20 Acute and chronic respiratory failure, unspecified whether with hypoxia or hypercapnia; I50.31 Acute diastolic (congestive) heart failure; J44.1 Chronic obstructive pulmonary disease with (acute) exacerbation; J84.9 Interstitial pulmonary disease, unspecified; E44.1 Mild protein-calorie malnutrition; I42.1 Obstructive hypertrophic cardiomyopathy; I27.20 Pulmonary hypertension, unspecified; D64.9 Anemia, unspecified; E07.9 Disorder of thyroid, unspecified; R59.0 Localized enlarged lymph nodes; N18.3 Chronic kidney disease, stage 3 (moderate); E87.6 Hypokalemia; I45.10 Unspecified right bundle-branch block; I05.2 Rheumatic mitral stenosis with insufficiency; I25.10 Atherosclerotic heart disease of native coronary artery without angina pectoris; I48.0 Paroxysmal atrial fibrillation; I73.9 Peripheral vascular disease, unspecified; M54.30 Sciatica, unspecified side; Z82.49 Family history of ischemic heart disease and other diseases of the circulatory system; Z87.891 Personal history of nicotine dependence; Z88.0 Allergy status to penicillin; Z99.81 Dependence on supplemental oxygen; Z79.51 Long term (current) use of inhaled steroids; Z79.899 Other long term (current) drug therapy; Z68.24 Body mass index [BMI] 24.0-24.9, adult
CPT/HCPCS: 36415; 71045; 80048; 80305; 83520; 83735; 83880; 84439; 84481; 84484; 93005; 94644; 94660; 96365; 96375; 99291; J1650; J1940; J2920; J2930; J3475; J7512; J7611; J7620

== ENCOUNTER 2018-08-04 02:52 | Inpatient (IN) | payer MEDICARE, MEDICAID ==
[~2018-08-04] VITALS: Ht 160 cm; Wt 55.8 kg
[~2018-08-04 02:52] MED LIST changes: +AMBR5TAB3 PO
[2018-08-04] MEDS: ALBUTEROL (0.083%) 2.5MG/3ML NEB HHN SCH ×2 (03:02→04:59)
[2018-08-04] MEDS ORDERED: IPRATROPIUM BROMIDE (0.02%) 0.5MG/2.5ML NEB HHN STA (03:15)
[2018-08-04] MEDS ORDERED: METHYLPREDNISOLONE SOD SUCC 125 MG/2 ML VIAL IV STA (03:15)
[2018-08-04 04:00] LABS: BASOPHILS % 0.5 % (0.0-2.0); HEMATOCRIT. 32.1 % (36.0-48.0); HEMOGLOBIN. 10.1 g/dL (12.0-16.0); LYMPHOCYTES % 34.7 % (20.0-50.0); MEAN CORPUSCULAR HEMOGLOBIN 29.4 pg (28.0-32.0); MEAN CORPUSCULAR VOLUME 93.8 fL (81.0-99.0); MEAN PLATELET VOLUME 9.8 fl (7.4-10.4); MONOCYTES % 7.7 % (2.0-8.0); NEUTROPHILS % 47.1 % (40.0-76.0); PLATELET 153 x1000/uL (130-400); RED BLOOD CELL COUNT 3.42 mill/uL (4.2-5.4); RED CELL DISTRIBUTION WIDTH 16.6 % (11.6-14.6)
[2018-08-04 04:02] LABS: CHLORIDE 105 mEq/L (98-107)
[2018-08-04 14:53] VITALS: BP 135/52
[2018-08-04] MEDS ORDERED: CLONIDINE 0.1MG TABLET PO PRN (15:00)
[2018-08-04] MEDS ORDERED: ONDANSETRON HCL 4MG/2ML INJ IV PRN (15:00)
[2018-08-04] MEDS ORDERED: ACETAMINOPHEN 325MG TABLET PO PRN (15:00)
[2018-08-04] MEDS ORDERED: HYDROCODONE/ACETAMINOPHEN 5/325MG TABLET PO PRN (15:00)
[2018-08-04] MEDS ORDERED: IPRATROPIUM/ALBUTEROL 0.5-3(2.5)MG/3ML NEB INH PRN (15:00)
[2018-08-04] MEDS ORDERED: LORAZEPAM 0.5MG TABLET PO PRN (15:00)
[2018-08-04] MEDS ORDERED: MAGNESIUM/ALUMINUM HYDROXIDE/SIMETHICONE 30ML UDC PO PRN (15:00)
[2018-08-04] MEDS ORDERED: IPRATROPIUM/ALBUTEROL 0.5-3(2.5)MG/3ML NEB HHN PRN (15:45)
[2018-08-04] MEDS ORDERED: LORAZEPAM 1MG TABLET PO PRN (15:45)
[2018-08-04 16:00] VITALS: BP 144/70
[2018-08-04] MEDS: FUROSEMIDE 40MG/4ML VIAL IV SCH (16:05)
[2018-08-04 16:34] LABS: BG BASE EXCESS -0.3 mmol/L (-2.0-2.0); BG CARBOXYHEMOGLOBIN 0.1 % (0.5-1.5); BG DEOXYHEMOGLOBIN 3.8 % (0.0-5.0); BG FRACTION INSPIRED OXYGEN 28; BG METHEMOGLOBIN 0.4 % (0.0-1.5); BG OXYGEN SATURATION 96.2 % (92.0-98.5); BG OXYHEMOGLOBIN 95.7 % (94.0-97.0); BG PCO2 32.6 mmHg (35.0-45.0); BG PH 7.466 (7.350-7.450); BG PO2 80.8 mmHg (75.0-100.0); BG SAMPLE SITE RIGHT BRACHIAL; BG TOTAL HEMOGLOBIN 10.2 g/dL (12.0-18.0); BG VENT MODE NASAL CANNULA
[2018-08-04] MEDS: IPRATROPIUM/ALBUTEROL 0.5-3(2.5)MG/3ML NEB HHN SCH ×2 (16:54→21:40)
[2018-08-04 17:09] LABS: CREATINE KINASE MB FRACTION 2.6 ng/mL (0.5-3.6)
[2018-08-04 17:44] LABS: FOLIC ACID (FOLATE) SERUM 12.9 ng/mL (>5.38)
[2018-08-04 18:00] VITALS: BP 162/70
[2018-08-04] MEDS: LEVOFLOXACIN 500MG PREMIX 100 ML IV SCH (18:00)
[2018-08-04 18:32] LABS: CLARITY URINE CLEAR (CLEAR); COLOR URINE YELLOW (YELLOW); KETONES URINE NEGATIVE (NEGATIVE); LEUKOCYTE ESTERASE URINE NEGATIVE (NEGATIVE); NITRITE URINE NEGATIVE (NEGATIVE); OCCULT BLOOD URINE NEGATIVE (NEGATIVE); PROTEIN URINE NEGATIVE (NEGATIVE); SPECIFIC GRAVITY URINE 1.005 (1.005-1.030); UROBILINOGEN URINE 0.2 E.U./dL (0.2-1.0)
[2018-08-04 18:57] LABS: *AMPHETAMINES SCREEN URINE NEGATIVE (NEGATIVE); *BARBITURATES SCREEN URINE NEGATIVE (NEGATIVE); *BENZODIAZEPINES SCREEN URINE NEGATIVE (NEGATIVE); *COCAINE SCREEN URINE NEGATIVE (NEGATIVE)
[2018-08-04 18:58] LABS: CANNABINOID URINE SCREEN NEGATIVE (NEGATIVE); METHADONE URINE SCREEN NEGATIVE (NEGATIVE); OPIATES URINE SCREEN NEGATIVE (NEGATIVE); PHENCYCLIDINE URINE SCREEN NEGATIVE (NEGATIVE)
[2018-08-04 20:01] VITALS: BP 122/57
[2018-08-04] MEDS: ATORVASTATIN CALCIUM 20MG TABLET PO SCH (21:55)
[2018-08-04 22:00] VITALS: BP 122/55
[2018-08-04] MEDS ORDERED: SILDENAFIL CITRATE 20MG TABLET PO SCH (22:00)
[2018-08-04] MEDS: VERAPAMIL HCL 80 MG TABLET PO SCH (22:02)
[2018-08-05] VITALS (12 sets, daily range): BP systolic 106–156; BP diastolic 49–94
[2018-08-05] MEDS: VERAPAMIL HCL 80 MG TABLET PO SCH ×3 (05:37→20:41)
[2018-08-05] MEDS: IPRATROPIUM/ALBUTEROL 0.5-3(2.5)MG/3ML NEB HHN SCH ×6 (05:49→23:52)
[2018-08-05 06:53] LABS: PHOSPHORUS 3.3 mg/dL (2.5-4.9)
[2018-08-05 06:58] LABS: BASOPHILS % 0.5 % (0.0-2.0); EOSINOPHILS % 2.4 % (0.0-5.0); HEMOGLOBIN. 8.9 g/dL (12.0-16.0); LYMPHOCYTES % 24.5 % (20.0-50.0); MEAN CORPUSCULAR HEMOGLOBIN 29.5 pg (28.0-32.0); MEAN CORPUSCULAR VOLUME 92.6 fL (81.0-99.0); MEAN PLATELET VOLUME 9.8 fl (7.4-10.4); MONOCYTES % 12.2 % (2.0-8.0); NEUTROPHILS % 60.4 % (40.0-76.0); PLATELET 141 x1000/uL (130-400); RED BLOOD CELL COUNT 3.03 mill/uL (4.2-5.4)
[2018-08-05] MEDS: FUROSEMIDE 40MG/4ML VIAL IV SCH (08:21)
[2018-08-05] MEDS: IRON SUCROSE COMPLEX 100 MG/5 ML ML IV SCH (20:40)
[2018-08-05] MEDS: ATORVASTATIN CALCIUM 20MG TABLET PO SCH (20:40)
[2018-08-06] VITALS (13 sets, daily range): BP systolic 120–147; BP diastolic 48–69
[2018-08-06] MEDS: IPRATROPIUM/ALBUTEROL 0.5-3(2.5)MG/3ML NEB HHN SCH ×5 (03:53→22:08)
[2018-08-06] MEDS: VERAPAMIL HCL 80 MG TABLET PO SCH ×3 (05:53→21:46)
[2018-08-06 06:26] LABS: BASOPHILS % 0.5 % (0.0-2.0); EOSINOPHILS % 8.9 % (0.0-5.0); HEMATOCRIT. 29.7 % (36.0-48.0); HEMOGLOBIN. 9.5 g/dL (12.0-16.0); LYMPHOCYTES % 27.1 % (20.0-50.0); MEAN CORPUSCULAR HEMOGLOBIN 29.3 pg (28.0-32.0); MEAN CORPUSCULAR VOLUME 91.6 fL (81.0-99.0); MEAN PLATELET VOLUME 9.2 fl (7.4-10.4); MONOCYTES % 12.3 % (2.0-8.0); NEUTROPHILS % 51.2 % (40.0-76.0); PLATELET 142 x1000/uL (130-400); RED BLOOD CELL COUNT 3.24 mill/uL (4.2-5.4); RED CELL DISTRIBUTION WIDTH 16.2 % (11.6-14.6)
[2018-08-06] MEDS: FUROSEMIDE 40MG/4ML VIAL IV SCH (09:26)
[2018-08-06] MEDS: DOCUSATE SODIUM 100MG CAPSULE PO PRN (09:27)
[2018-08-06] MEDS: IRON SUCROSE COMPLEX 100 MG/5 ML ML IV SCH (09:27)
[2018-08-06] MEDS: LEVOFLOXACIN 500MG PREMIX 100 ML IV SCH (17:43)
[2018-08-06] MEDS: ATORVASTATIN CALCIUM 20MG TABLET PO SCH (21:45)
[2018-08-07] VITALS: BP 117/54
[2018-08-07] MEDS: IPRATROPIUM/ALBUTEROL 0.5-3(2.5)MG/3ML NEB HHN SCH ×6 (01:56→21:11)
[2018-08-07 04:00] VITALS: BP 138/50
[2018-08-07] MEDS: VERAPAMIL HCL 80 MG TABLET PO SCH ×3 (06:42→20:46)
[2018-08-07 07:40] LABS: BASOPHILS % 0.4 % (0.0-2.0); EOSINOPHILS % 8.8 % (0.0-5.0); HEMATOCRIT. 30.4 % (36.0-48.0); HEMOGLOBIN. 9.7 g/dL (12.0-16.0); MEAN CORPUSCULAR HEMOGLOBIN 29.3 pg (28.0-32.0); MEAN CORPUSCULAR VOLUME 91.9 fL (81.0-99.0); MEAN PLATELET VOLUME 9.4 fl (7.4-10.4); MONOCYTES % 14.5 % (2.0-8.0); NEUTROPHILS % 54.3 % (40.0-76.0); PLATELET 150 x1000/uL (130-400); RED BLOOD CELL COUNT 3.31 mill/uL (4.2-5.4); RED CELL DISTRIBUTION WIDTH 16.1 % (11.6-14.6)
[2018-08-07 08:00] VITALS: BP 130/53
[2018-08-07] MEDS: IRON SUCROSE COMPLEX 100 MG/5 ML ML IV SCH (09:33)
[2018-08-07] MEDS: FUROSEMIDE 20MG/2ML VIAL IV SCH (09:33)
[2018-08-07 12:26] VITALS: BP 127/52
[2018-08-07 16:21] VITALS: BP 134/51
[2018-08-07] MEDS ORDERED: LACTULOSE 20G/30ML UDC PO NR (17:00)
[2018-08-07] MEDS: LEVOFLOXACIN 250MG TABLET PO SCH (19:24)
[2018-08-07] MEDS: DOCUSATE SODIUM 250MG CAPSULE PO SCH (19:32)
[2018-08-07 20:00] VITALS: BP 114/54
[2018-08-07] MEDS: ATORVASTATIN CALCIUM 20MG TABLET PO SCH (20:44)
[2018-08-08] MEDS: IPRATROPIUM/ALBUTEROL 0.5-3(2.5)MG/3ML NEB HHN SCH ×6 (00:03→21:31)
[2018-08-08 00:34] VITALS: BP 148/46
[2018-08-08 04:00] VITALS: BP 135/54
[2018-08-08] MEDS: VERAPAMIL HCL 80 MG TABLET PO SCH (05:29)
[2018-08-08 07:02] LABS: BASOPHILS % 0.5 % (0.0-2.0); EOSINOPHILS % 7.2 % (0.0-5.0); HEMATOCRIT. 31.8 % (36.0-48.0); HEMOGLOBIN. 10.3 g/dL (12.0-16.0); LYMPHOCYTES % 13.3 % (20.0-50.0); MEAN CORPUSCULAR HEMOGLOBIN 29.6 pg (28.0-32.0); MEAN CORPUSCULAR VOLUME 91.8 fL (81.0-99.0); MEAN PLATELET VOLUME 9.1 fl (7.4-10.4); MONOCYTES % 13.4 % (2.0-8.0); NEUTROPHILS % 65.6 % (40.0-76.0); PLATELET 147 x1000/uL (130-400); RED BLOOD CELL COUNT 3.47 mill/uL (4.2-5.4); RED CELL DISTRIBUTION WIDTH 16.2 % (11.6-14.6)
[2018-08-08 08:00] VITALS: BP 133/54
[2018-08-08] MEDS: IRON SUCROSE COMPLEX 100 MG/5 ML ML IV SCH (08:38)
[2018-08-08] MEDS: FUROSEMIDE 20MG/2ML VIAL IV SCH (08:38)
[2018-08-08] MEDS: DOCUSATE SODIUM 100MG CAPSULE PO PRN (08:38)
[2018-08-08] MEDS: DOCUSATE SODIUM 250MG CAPSULE PO SCH (08:44)
[2018-08-08] MEDS: POLYETHYLENE GLYCOL 3350 (17GM) 1 DOSE PACK PO SCH (08:54)
[2018-08-08] MEDS: LEVOFLOXACIN 250MG TABLET PO SCH (12:40)
[2018-08-08 20:00] VITALS: BP 99/40
[2018-08-08] MEDS: ATORVASTATIN CALCIUM 20MG TABLET PO SCH (21:40)
[2018-08-09] VITALS: BP 123/52
[2018-08-09] MEDS: IPRATROPIUM/ALBUTEROL 0.5-3(2.5)MG/3ML NEB HHN SCH ×5 (01:46→16:51)
[2018-08-09 04:00] VITALS: BP_SYST 123; BP_SYST 125; BP_DIAS 52; BP_DIAS 56
[2018-08-09 08:00] VITALS: BP 109/52
[2018-08-09 08:25] LABS: BASOPHILS % 0.9 % (0.0-2.0); EOSINOPHILS % 7.3 % (0.0-5.0); HEMATOCRIT. 33.7 % (36.0-48.0); HEMOGLOBIN. 10.7 g/dL (12.0-16.0); LYMPHOCYTES % 15.2 % (20.0-50.0); MEAN CORPUSCULAR HEMOGLOBIN 29.2 pg (28.0-32.0); MEAN CORPUSCULAR VOLUME 92.1 fL (81.0-99.0); MEAN PLATELET VOLUME 9.2 fl (7.4-10.4); MONOCYTES % 11.9 % (2.0-8.0); NEUTROPHILS % 64.7 % (40.0-76.0); PLATELET 147 x1000/uL (130-400); RED BLOOD CELL COUNT 3.66 mill/uL (4.2-5.4); RED CELL DISTRIBUTION WIDTH 16.6 % (11.6-14.6)
[2018-08-09] MEDS: LOSARTAN POTASSIUM 25 MG TABLET PO SCH ×2 (08:39→09:00)
[2018-08-09] MEDS: IRON SUCROSE COMPLEX 100 MG/5 ML ML IV SCH (08:40)
[2018-08-09] MEDS: VERAPAMIL HCL 40MG TABLET PO SCH ×2 (08:40→14:00)
[2018-08-09] MEDS ORDERED: FUROSEMIDE 40MG/4ML VIAL IV SCH (09:00)
[2018-08-09] MEDS: POLYETHYLENE GLYCOL 3350 (17GM) 1 DOSE PACK PO SCH (10:23)
[2018-08-09] MEDS: DOCUSATE SODIUM 250MG CAPSULE PO SCH (10:23)
[2018-08-09 12:00] VITALS: BP 104/43
[2018-08-09] MEDS: LEVOFLOXACIN 250MG TABLET PO SCH (13:14)
[2018-08-09] MEDS ORDERED: LOSA25TA3 PO (14:43)
[2018-08-09] MEDS ORDERED: LEVO250T58 MT (14:49)
[2018-08-09 16:00] VITALS: BP 100/41
[2018-08-09 18:07] VITALS: BP 130/57
== END 2018-08-09 20:10 | disposition home or self-care (01) | DRG 291 ==
LOC: ER 02:52 → 3WST 05:43 → EDBEDREQ 05:47 → EDBEDREQTM 05:47 → CANRESERV 09:14 → ENRESERV 09:14 → EDBEDREQSVC 09:59 → ENRESERV 13:29 → 5WST 08-06 12:16
PROVIDERS: ADMIT Internal Medicine; ATTEND Internal Medicine
PROC: 5A09357 Assistance with Respiratory Ventilation, Less than 24 Consecutive Hours, Continuous Positive Airway Pressure (ICD-10-PCS; principal; 2018-08-04)
DX: I13.0 Hypertensive heart and chronic kidney disease with heart failure and stage 1 through stage 4 chronic kidney disease, or unspecified chronic kidney disease (principal); I50.33 Acute on chronic diastolic (congestive) heart failure; J96.21 Acute and chronic respiratory failure with hypoxia; J44.1 Chronic obstructive pulmonary disease with (acute) exacerbation; E44.1 Mild protein-calorie malnutrition; J84.9 Interstitial pulmonary disease, unspecified; I42.1 Obstructive hypertrophic cardiomyopathy; D64.9 Anemia, unspecified; N18.3 Chronic kidney disease, stage 3 (moderate); R74.8 Abnormal levels of other serum enzymes; I08.0 Rheumatic disorders of both mitral and aortic valves; I45.10 Unspecified right bundle-branch block; M54.30 Sciatica, unspecified side; D50.9 Iron deficiency anemia, unspecified; I27.21 Secondary pulmonary arterial hypertension; E07.9 Disorder of thyroid, unspecified; I25.10 Atherosclerotic heart disease of native coronary artery without angina pectoris; I48.0 Paroxysmal atrial fibrillation; F16.90 Hallucinogen use, unspecified, uncomplicated; Z87.891 Personal history of nicotine dependence; Z99.81 Dependence on supplemental oxygen; Z88.0 Allergy status to penicillin; Z68.21 Body mass index [BMI] 21.0-21.9, adult; Z82.49 Family history of ischemic heart disease and other diseases of the circulatory system
CPT/HCPCS: 36415; 36600; 71045; 80048; 80305; 82375; 82550; 82553; 82607; 82728; 82746; 82805; 83036; 83540; 83550; 83605; 83735; 83880; 84100; 84443; 84484; 87070; 87804; 93005; 93970; 94640; 94660; 96374; 97162; 97165; 99291; C1893; J1940; J1956; J2405; J2930; J7050; J7611; J7620

== ENCOUNTER 2018-08-19 02:19 | Inpatient (IN) | payer MEDICARE, MEDICAID ==
[~2018-08-19] VITALS: Ht 151.1 cm; Wt 57.2 kg
[~2018-08-19 02:19] MED LIST changes: +LEVO250T58 MT; +LOSA25TA3 PO
[2018-08-19] MEDS ORDERED: ONDANSETRON HCL 4MG/2ML INJ IV STA (02:58)
[2018-08-19] MEDS ORDERED: METHYLPREDNISOLONE SOD SUCC 125 MG/2 ML VIAL IV STA (02:58)
[2018-08-19] MEDS ORDERED: IPRATROPIUM BROMIDE (0.02%) 0.5MG/2.5ML NEB HHN STA (02:58)
[2018-08-19] MEDS: ALBUTEROL (0.083%) 2.5MG/3ML NEB HHN SCH ×3 (03:30→05:15)
[2018-08-19 03:32] LABS: BASOPHILS % 0.4 % (0.0-2.0); CHLORIDE 104 mEq/L (98-107); EOSINOPHILS % 5.2 % (0.0-5.0); HEMATOCRIT. 33.5 % (36.0-48.0); HEMOGLOBIN. 10.7 g/dL (12.0-16.0); LYMPHOCYTES % 29.1 % (20.0-50.0); MEAN CORPUSCULAR HEMOGLOBIN 29.8 pg (28.0-32.0); MEAN CORPUSCULAR VOLUME 93.6 fL (81.0-99.0); MEAN PLATELET VOLUME 8.5 fl (7.4-10.4); MONOCYTES % 9.5 % (2.0-8.0); NEUTROPHILS % 55.8 % (40.0-76.0); PLATELET 178 x1000/uL (130-400); RED BLOOD CELL COUNT 3.58 mill/uL (4.2-5.4); RED CELL DISTRIBUTION WIDTH 18.1 % (11.6-14.6)
[2018-08-19 03:46] LABS: BG CARBOXYHEMOGLOBIN 0.3 % (0.5-1.5); BG DEOXYHEMOGLOBIN 11.8 % (0.0-5.0); BG FRACTION INSPIRED OXYGEN 32; BG HCO3 ACT 22.2 mmol/L (22.0-26.0); BG METHEMOGLOBIN 0.1 % (0.0-1.5); BG OXYGEN SATURATION 88.2 % (92.0-98.5); BG OXYHEMOGLOBIN 87.8 % (94.0-97.0); BG PCO2 35.6 mmHg (35.0-45.0); BG PH 7.412 (7.350-7.450); BG SAMPLE SITE RIGHT BRACHIAL; BG TOTAL HEMOGLOBIN 10.4 g/dL (12.0-18.0); BG VENT MODE NASAL CANNULA
[2018-08-19] MEDS ORDERED: VANCOMYCIN 1 G PREMIX 200 ML IV ONE (05:00)
[2018-08-19] MEDS ORDERED: MEROPENEM 1,000 MG in SODIUM CHLORIDE 0.9% 100 ML IV ONE (05:00)
[2018-08-19] MEDS ORDERED: HYDROCODONE/ACETAMINOPHEN 5/325MG TABLET PO PRN (11:45)
[2018-08-19] MEDS ORDERED: CLONIDINE 0.1MG TABLET PO PRN (11:45)
[2018-08-19] MEDS ORDERED: ACETAMINOPHEN 325MG TABLET PO PRN (11:45)
[2018-08-19] MEDS ORDERED: ONDANSETRON HCL 4MG/2ML INJ IV PRN (11:45)
[2018-08-19] MEDS ORDERED: LORAZEPAM 0.5MG TABLET PO PRN (11:45)
[2018-08-19] MEDS ORDERED: IPRATROPIUM/ALBUTEROL 0.5-3(2.5)MG/3ML NEB HHN PRN (13:30)
[2018-08-19 14:25] LABS: BG BASE EXCESS -1.3 mmol/L (-2.0-2.0); BG CARBOXYHEMOGLOBIN 0.3 % (0.5-1.5); BG DEOXYHEMOGLOBIN 4.9 % (0.0-5.0); BG HCO3 ACT 23.1 mmol/L (22.0-26.0); BG METHEMOGLOBIN 0.3 % (0.0-1.5); BG OXYGEN SATURATION 95.1 % (92.0-98.5); BG OXYHEMOGLOBIN 94.5 % (94.0-97.0); BG PCO2 37.5 mmHg (35.0-45.0); BG PH 7.407 (7.350-7.450); BG PO2 78.1 mmHg (75.0-100.0); BG SAMPLE SITE RIGHT BRACHIAL; BG TOTAL HEMOGLOBIN 11.3 g/dL (12.0-18.0); BG VENT MODE NASAL CANNULA
[2018-08-19 16:45] VITALS: BP 132/62
[2018-08-19 16:53] VITALS: BP 132/62
[2018-08-19] MEDS ORDERED: CEFTRIAXONE 1 G PREMIX 50 ML IV SCH (18:00)
[2018-08-19 18:45] VITALS: BP 165/67
[2018-08-19] MEDS: FUROSEMIDE 40MG/4ML VIAL IV SCH (19:00)
[2018-08-19] MEDS: FERROUS SULFATE 325MG TABLET PO SCH (19:03)
[2018-08-19] MEDS: AZITHROMYCIN 500 MG TABLET PO SCH (19:03)
[2018-08-19] MEDS: SILDENAFIL CITRATE 20MG TABLET PO SCH ×2 (19:06→22:06)
[2018-08-19] MEDS: METHYLPREDNISOLONE SOD SUCC 125 MG/2 ML VIAL IV SCH (19:10)
[2018-08-19] MEDS: IPRATROPIUM/ALBUTEROL 0.5-3(2.5)MG/3ML NEB HHN SCH ×2 (20:00→21:30)
[2018-08-19] MEDS ORDERED: VERAPAMIL HCL 40MG TABLET PO SCH (20:00)
[2018-08-19] MEDS: ATORVASTATIN CALCIUM 20MG TABLET PO SCH (22:05)
[2018-08-19] MEDS: AMLODIPINE 2.5MG TABLET PO SCH (22:06)
[2018-08-19 22:28] LABS: BG BASE EXCESS -1.6 mmol/L (-2.0-2.0); BG CARBOXYHEMOGLOBIN 0.7 % (0.5-1.5); BG DEOXYHEMOGLOBIN 19.1 % (0.0-5.0); BG FRACTION INSPIRED OXYGEN 36; BG HCO3 ACT 23.3 mmol/L (22.0-26.0); BG METHEMOGLOBIN 0.2 % (0.0-1.5); BG OXYGEN SATURATION 80.7 % (92.0-98.5); BG PCO2 39.9 mmHg (35.0-45.0); BG PH 7.384 (7.350-7.450); BG PO2 48.4 mmHg (75.0-100.0); BG SAMPLE SITE LEFT RADIAL; BG TOTAL HEMOGLOBIN 11.8 g/dL (12.0-18.0); BG VENT MODE NASAL CANNULA
[2018-08-19 22:47] LABS: CLARITY URINE CLEAR (CLEAR); COLOR URINE YELLOW (YELLOW); KETONES URINE NEGATIVE (NEGATIVE); LEUKOCYTE ESTERASE URINE NEGATIVE (NEGATIVE); NITRITE URINE NEGATIVE (NEGATIVE); OCCULT BLOOD URINE NEGATIVE (NEGATIVE); PH URINE 5.5 (4.5-8.0); PROTEIN URINE NEGATIVE (NEGATIVE); SPECIFIC GRAVITY URINE 1.018 (1.005-1.030); UROBILINOGEN URINE 0.2 E.U./dL (0.2-1.0)
[2018-08-19 22:55] LABS: *AMPHETAMINES SCREEN URINE NEGATIVE (NEGATIVE); *BARBITURATES SCREEN URINE NEGATIVE (NEGATIVE); *COCAINE SCREEN URINE NEGATIVE (NEGATIVE)
[2018-08-19 22:56] LABS: *BENZODIAZEPINES SCREEN URINE NEGATIVE (NEGATIVE); CANNABINOID URINE SCREEN NEGATIVE (NEGATIVE); METHADONE URINE SCREEN NEGATIVE (NEGATIVE); OPIATES URINE SCREEN NEGATIVE (NEGATIVE); PHENCYCLIDINE URINE SCREEN NEGATIVE (NEGATIVE)
[2018-08-19] MEDS: VERAPAMIL HCL 40MG TABLET PO SCH (23:00)
[2018-08-19 23:45] VITALS: BP 80/42
[2018-08-20] VITALS (9 sets, daily range): BP systolic 90–117; BP diastolic 19–48
[2018-08-20] MEDS: IPRATROPIUM/ALBUTEROL 0.5-3(2.5)MG/3ML NEB HHN SCH ×6 (00:35→21:34)
[2018-08-20] MEDS: METHYLPREDNISOLONE SOD SUCC 125 MG/2 ML VIAL IV SCH ×3 (02:00→17:54)
[2018-08-20] MEDS: VERAPAMIL HCL 40MG TABLET PO SCH ×2 (06:00→21:30)
[2018-08-20 06:23] LABS: BASOPHILS % 0.4 % (0.0-2.0); EOSINOPHILS % 0.7 % (0.0-5.0); HEMATOCRIT. 28.6 % (36.0-48.0); HEMOGLOBIN. 9.2 g/dL (12.0-16.0); LYMPHOCYTES % 17.7 % (20.0-50.0); MEAN CORPUSCULAR HEMOGLOBIN 30.3 pg (28.0-32.0); MEAN CORPUSCULAR VOLUME 93.9 fL (81.0-99.0); MONOCYTES % 11.7 % (2.0-8.0); NEUTROPHILS % 69.5 % (40.0-76.0); PLATELET 155 x1000/uL (130-400); RED BLOOD CELL COUNT 3.04 mill/uL (4.2-5.4); RED CELL DISTRIBUTION WIDTH 17.8 % (11.6-14.6)
[2018-08-20] MEDS: SILDENAFIL CITRATE 20MG TABLET PO SCH ×3 (07:10→21:30)
[2018-08-20] MEDS: FUROSEMIDE 40MG/4ML VIAL IV SCH ×2 (07:10→17:54)
[2018-08-20] MEDS: LOSARTAN POTASSIUM 25 MG TABLET PO SCH (09:00)
[2018-08-20] MEDS ORDERED: AMBRISENTAN MT SCH (09:00)
[2018-08-20] MEDS: AMLODIPINE 2.5MG TABLET PO SCH ×2 (09:00→21:29)
[2018-08-20] MEDS: AZITHROMYCIN 500 MG TABLET PO SCH (09:21)
[2018-08-20] MEDS: FERROUS SULFATE 325MG TABLET PO SCH (09:21)
[2018-08-20 10:21] LABS: BG BASE EXCESS 2.6 mmol/L (-2.0-2.0); BG BILEVEL POS AIRWAY PRESSURE 15/5; BG CARBOXYHEMOGLOBIN 0.2 % (0.5-1.5); BG DEOXYHEMOGLOBIN 1.6 % (0.0-5.0); BG FRACTION INSPIRED OXYGEN 50; BG HCO3 ACT 26.4 mmol/L (22.0-26.0); BG METHEMOGLOBIN 0.4 % (0.0-1.5); BG OXYGEN SATURATION 98.4 % (92.0-98.5); BG OXYHEMOGLOBIN 97.8 % (94.0-97.0); BG PCO2 37.6 mmHg (35.0-45.0); BG PH 7.464 (7.350-7.450); BG PO2 116.4 mmHg (75.0-100.0); BG SAMPLE SITE RIGHT BRACHIAL; BG TOTAL HEMOGLOBIN 10.1 g/dL (12.0-18.0); BG VENT MODE MASK - BIPAP
[2018-08-20] MEDS: CEFTRIAXONE 1 G PREMIX 50 ML IV SCH (21:28)
[2018-08-20] MEDS: ATORVASTATIN CALCIUM 20MG TABLET PO SCH (21:29)
[2018-08-21] VITALS (10 sets, daily range): BP systolic 90–128; BP diastolic 19–75
[2018-08-21] MEDS: IPRATROPIUM/ALBUTEROL 0.5-3(2.5)MG/3ML NEB HHN SCH ×5 (01:03→21:07)
[2018-08-21] MEDS: METHYLPREDNISOLONE SOD SUCC 125 MG/2 ML VIAL IV SCH ×3 (01:40→17:53)
[2018-08-21 08:34] LABS: BASOPHILS % 0.1 % (0.0-2.0); EOSINOPHILS % 0.1 % (0.0-5.0); HEMATOCRIT. 28.1 % (36.0-48.0); LYMPHOCYTES % 14.6 % (20.0-50.0); MEAN CORPUSCULAR HEMOGLOBIN 30.3 pg (28.0-32.0); MEAN CORPUSCULAR VOLUME 94.3 fL (81.0-99.0); MONOCYTES % 2.6 % (2.0-8.0); NEUTROPHILS % 82.6 % (40.0-76.0); PLATELET 171 x1000/uL (130-400); RED BLOOD CELL COUNT 2.98 mill/uL (4.2-5.4); RED CELL DISTRIBUTION WIDTH 17.2 % (11.6-14.6)
[2018-08-21] MEDS: FERROUS SULFATE 325MG TABLET PO SCH (08:42)
[2018-08-21] MEDS: FUROSEMIDE 40MG/4ML VIAL IV SCH ×2 (08:42→16:50)
[2018-08-21] MEDS: AZITHROMYCIN 500 MG TABLET PO SCH (08:42)
[2018-08-21] MEDS: LOSARTAN POTASSIUM 25 MG TABLET PO SCH (09:00)
[2018-08-21] MEDS: AMLODIPINE 2.5MG TABLET PO SCH ×2 (09:00→20:50)
[2018-08-21] MEDS: SILDENAFIL CITRATE 20MG TABLET PO SCH ×2 (14:00→22:42)
[2018-08-21] MEDS: VERAPAMIL HCL 40MG TABLET PO SCH ×2 (14:00→22:42)
[2018-08-21] MEDS ORDERED: THROAT LOZENGES-BENZOCAINE/MENTH/CETYLPYRD CL LOZENGES MM NR (15:30)
[2018-08-21] MEDS ORDERED: THROAT LOZENGES-BENZOCAINE/MENTH/CETYLPYRD CL LOZENGES MM PRN (16:00)
[2018-08-21] MEDS: CEFTRIAXONE 1 G PREMIX 50 ML IV SCH (20:49)
[2018-08-21] MEDS: ATORVASTATIN CALCIUM 20MG TABLET PO SCH (20:49)
[2018-08-22] VITALS (12 sets, daily range): BP systolic 99–126; BP diastolic 41–59
[2018-08-22] MEDS: IPRATROPIUM/ALBUTEROL 0.5-3(2.5)MG/3ML NEB HHN SCH ×6 (01:07→20:49)
[2018-08-22] MEDS: METHYLPREDNISOLONE SOD SUCC 125 MG/2 ML VIAL IV SCH ×3 (02:56→17:25)
[2018-08-22] MEDS: VERAPAMIL HCL 40MG TABLET PO SCH ×3 (06:00→22:00)
[2018-08-22] MEDS: SILDENAFIL CITRATE 20MG TABLET PO SCH ×3 (06:00→22:00)
[2018-08-22] MEDS: FUROSEMIDE 40MG/4ML VIAL IV SCH ×2 (06:19→17:24)
[2018-08-22 06:24] LABS: BASOPHILS % 0.2 % (0.0-2.0); HEMATOCRIT. 27.9 % (36.0-48.0); MEAN CORPUSCULAR HEMOGLOBIN 30.3 pg (28.0-32.0); MEAN CORPUSCULAR VOLUME 94.2 fL (81.0-99.0); MONOCYTES % 4.3 % (2.0-8.0); NEUTROPHILS % 85.5 % (40.0-76.0); PLATELET 183 x1000/uL (130-400); RED BLOOD CELL COUNT 2.96 mill/uL (4.2-5.4); RED CELL DISTRIBUTION WIDTH 17.5 % (11.6-14.6)
[2018-08-22] MEDS: AZITHROMYCIN 500 MG TABLET PO SCH (08:49)
[2018-08-22] MEDS: FERROUS SULFATE 325MG TABLET PO SCH (08:49)
[2018-08-22] MEDS: LOSARTAN POTASSIUM 25 MG TABLET PO SCH (11:20)
[2018-08-22] MEDS: AMLODIPINE 2.5MG TABLET PO SCH ×2 (11:20→20:43)
[2018-08-22] MEDS: CEFTRIAXONE 1 G PREMIX 50 ML IV SCH (20:43)
[2018-08-22] MEDS: ATORVASTATIN CALCIUM 20MG TABLET PO SCH (20:43)
[2018-08-23] VITALS (12 sets, daily range): BP systolic 100–127; BP diastolic 47–63
[2018-08-23] MEDS: IPRATROPIUM/ALBUTEROL 0.5-3(2.5)MG/3ML NEB HHN SCH ×6 (00:37→20:10)
[2018-08-23] MEDS: METHYLPREDNISOLONE SOD SUCC 125 MG/2 ML VIAL IV SCH ×3 (02:24→17:25)
[2018-08-23] MEDS: SILDENAFIL CITRATE 20MG TABLET PO SCH ×3 (06:14→21:19)
[2018-08-23] MEDS: FUROSEMIDE 40MG/4ML VIAL IV SCH ×2 (06:18→17:25)
[2018-08-23] MEDS: VERAPAMIL HCL 40MG TABLET PO SCH ×3 (06:18→21:19)
[2018-08-23 07:21] LABS: BASOPHILS % 0.1 % (0.0-2.0); LYMPHOCYTES % 9.3 % (20.0-50.0); MEAN CORPUSCULAR HEMOGLOBIN 30.3 pg (28.0-32.0); MEAN CORPUSCULAR VOLUME 94.4 fL (81.0-99.0); MEAN PLATELET VOLUME 9.2 fl (7.4-10.4); MONOCYTES % 3.9 % (2.0-8.0); NEUTROPHILS % 86.7 % (40.0-76.0); PLATELET 207 x1000/uL (130-400); RED BLOOD CELL COUNT 3.29 mill/uL (4.2-5.4); RED CELL DISTRIBUTION WIDTH 17.6 % (11.6-14.6)
[2018-08-23] MEDS: AMLODIPINE 2.5MG TABLET PO SCH ×2 (09:25→21:00)
[2018-08-23] MEDS: AZITHROMYCIN 500 MG TABLET PO SCH (09:25)
[2018-08-23] MEDS: FERROUS SULFATE 325MG TABLET PO SCH (09:25)
[2018-08-23] MEDS: LOSARTAN POTASSIUM 25 MG TABLET PO SCH (09:25)
[2018-08-23] MEDS: ENOXAPARIN 30MG/0.3ML SYR SUBCUT SCH (11:17)
[2018-08-23] MEDS: CEFTRIAXONE 1 G PREMIX 50 ML IV SCH (21:18)
[2018-08-23] MEDS: ATORVASTATIN CALCIUM 20MG TABLET PO SCH (21:19)
[2018-08-24] VITALS (7 sets, daily range): BP systolic 91–144; BP diastolic 38–80
[2018-08-24] MEDS: IPRATROPIUM/ALBUTEROL 0.5-3(2.5)MG/3ML NEB HHN SCH ×3 (00:01→08:03)
[2018-08-24] MEDS: METHYLPREDNISOLONE SOD SUCC 125 MG/2 ML VIAL IV SCH ×2 (03:23→10:08)
[2018-08-24] MEDS: VERAPAMIL HCL 40MG TABLET PO SCH (05:24)
[2018-08-24] MEDS: SILDENAFIL CITRATE 20MG TABLET PO SCH (05:25)
[2018-08-24] MEDS: FUROSEMIDE 40MG/4ML VIAL IV SCH (08:36)
[2018-08-24] MEDS: AZITHROMYCIN 500 MG TABLET PO SCH (08:36)
[2018-08-24] MEDS: AMLODIPINE 2.5MG TABLET PO SCH (08:38)
[2018-08-24] MEDS: LOSARTAN POTASSIUM 25 MG TABLET PO SCH (08:38)
[2018-08-24] MEDS: FERROUS SULFATE 325MG TABLET PO SCH (08:38)
[2018-08-24] MEDS: ENOXAPARIN 30MG/0.3ML SYR SUBCUT SCH (10:08)
== END 2018-08-24 11:45 | disposition home or self-care (01) | DRG 871 ==
LOC: ER 02:19 → 6WST 06:14 → EDBEDREQTM 06:24 → EDBEDREQ 06:24 → ENRESERV 15:33 → 5EST 23:00
PROVIDERS: ADMIT Internal Medicine; ATTEND Internal Medicine
PROC: 5A09357 Assistance with Respiratory Ventilation, Less than 24 Consecutive Hours, Continuous Positive Airway Pressure (ICD-10-PCS; principal; 2018-08-19)
PROC: 5A09357 Assistance with Respiratory Ventilation, Less than 24 Consecutive Hours, Continuous Positive Airway Pressure (ICD-10-PCS; 2018-08-20)
PROC: 5A09357 Assistance with Respiratory Ventilation, Less than 24 Consecutive Hours, Continuous Positive Airway Pressure (ICD-10-PCS; 2018-08-21)
PROC: 5A09357 Assistance with Respiratory Ventilation, Less than 24 Consecutive Hours, Continuous Positive Airway Pressure (ICD-10-PCS; 2018-08-22)
DX: A41.9 Sepsis, unspecified organism (principal); I50.33 Acute on chronic diastolic (congestive) heart failure; J96.21 Acute and chronic respiratory failure with hypoxia; J18.9 Pneumonia, unspecified organism; I13.0 Hypertensive heart and chronic kidney disease with heart failure and stage 1 through stage 4 chronic kidney disease, or unspecified chronic kidney disease; I42.1 Obstructive hypertrophic cardiomyopathy; D50.9 Iron deficiency anemia, unspecified; E87.6 Hypokalemia; I27.20 Pulmonary hypertension, unspecified; I45.10 Unspecified right bundle-branch block; I48.91 Unspecified atrial fibrillation; N18.3 Chronic kidney disease, stage 3 (moderate); E07.9 Disorder of thyroid, unspecified; E78.5 Hyperlipidemia, unspecified; F16.90 Hallucinogen use, unspecified, uncomplicated; I25.10 Atherosclerotic heart disease of native coronary artery without angina pectoris; I34.0 Nonrheumatic mitral (valve) insufficiency; I73.9 Peripheral vascular disease, unspecified; K80.20 Calculus of gallbladder without cholecystitis without obstruction; J06.9 Acute upper respiratory infection, unspecified; M54.30 Sciatica, unspecified side; R59.0 Localized enlarged lymph nodes; J43.9 Emphysema, unspecified; Z79.899 Other long term (current) drug therapy; Z87.891 Personal history of nicotine dependence; Z99.81 Dependence on supplemental oxygen; Z88.0 Allergy status to penicillin; Z79.2 Long term (current) use of antibiotics; Z79.51 Long term (current) use of inhaled steroids
CPT/HCPCS: 36415; 36600; 71045; 71250; 78580; 80048; 80305; 82375; 82805; 83605; 83880; 84145; 84484; 87804; 93005; 94640; 94660; 96365; 96375; 97162; 99285; J0696; J1650; J1940; J2185; J2405; J2930; J3370; J7050; J7611; J7620

== ENCOUNTER 2018-08-31 00:40 | Inpatient (IN) | payer MEDICARE, MEDICAID ==
[~2018-08-31] VITALS: Ht 149.9 cm; Wt 55.3 kg
[2018-08-31] VITALS (10 sets, daily range): BP systolic 114–147; BP diastolic 54–95
[2018-08-31] MEDS ORDERED: METHYLPREDNISOLONE SOD SUCC 125 MG/2 ML VIAL IV STA (01:39)
[2018-08-31] MEDS ORDERED: IPRATROPIUM BROMIDE (0.02%) 0.5MG/2.5ML NEB HHN STA (01:39)
[2018-08-31] MEDS ORDERED: ALBUTEROL (0.083%) 2.5MG/3ML NEB HHN STA (01:39)
[2018-08-31] MEDS ORDERED: MAGNESIUM 2 G PREMIX 50 ML IV STA (01:39)
[2018-08-31 02:24] LABS: HEMATOCRIT 31.7 % (36.0-48.0); HEMOGLOBIN 10.1 g/dL (12.0-16.0); MEAN CORPUSCULAR HEMOGLOBIN 30.2 pg (28.0-32.0); MEAN CORPUSCULAR VOLUME 95.2 fL (81.0-99.0); PLATELET 119 x1000/uL (130-400); RED BLOOD CELL COUNT 3.33 mill/uL (4.2-5.4); RED CELL DISTRIBUTION WIDTH 17.3 % (11.6-14.6)
[2018-08-31 03:14] LABS: CHLORIDE 109 mEq/L (98-107)
[2018-08-31] MEDS ORDERED: ACETAMINOPHEN 325MG TABLET PO PRN (09:30)
[2018-08-31] MEDS ORDERED: IPRATROPIUM/ALBUTEROL 0.5-3(2.5)MG/3ML NEB HHN PRN ×2 (09:30→11:30)
[2018-08-31] MEDS ORDERED: ONDANSETRON HCL 4MG/2ML INJ IV PRN (09:30)
[2018-08-31] MEDS: LOSARTAN POTASSIUM 25 MG TABLET PO SCH (10:50)
[2018-08-31] MEDS: DOCUSATE SODIUM 250MG CAPSULE PO SCH (10:50)
[2018-08-31] MEDS: FUROSEMIDE 40MG/4ML VIAL IVP SCH ×2 (10:51→17:44)
[2018-08-31] MEDS: ENOXAPARIN 30MG/0.3ML SYR SUBCUT SCH (10:51)
[2018-08-31] MEDS: BUDESONIDE 0.5MG/2ML NEB HHN SCH ×2 (11:09→20:31)
[2018-08-31] MEDS: FERROUS SULFATE 325MG TABLET PO SCH ×2 (14:25→17:44)
[2018-08-31] MEDS: VERAPAMIL HCL 40MG TABLET PO SCH ×2 (14:26→22:33)
[2018-08-31] MEDS: SILDENAFIL CITRATE 20MG TABLET PO SCH ×2 (14:26→22:33)
[2018-08-31] MEDS: IPRATROPIUM/ALBUTEROL 0.5-3(2.5)MG/3ML NEB HHN SCH ×2 (15:55→20:31)
[2018-09-01] VITALS (12 sets, daily range): BP systolic 106–132; BP diastolic 48–75
[2018-09-01] MEDS: IPRATROPIUM/ALBUTEROL 0.5-3(2.5)MG/3ML NEB HHN SCH ×4 (02:10→20:20)
[2018-09-01 05:27] LABS: BASOPHILS % 0.2 % (0.0-2.0); EOSINOPHILS % 0.4 % (0.0-5.0); HEMATOCRIT. 26.3 % (36.0-48.0); HEMOGLOBIN. 8.5 g/dL (12.0-16.0); LYMPHOCYTES % 13.2 % (20.0-50.0); MEAN CORPUSCULAR HEMOGLOBIN 30.9 pg (28.0-32.0); MEAN CORPUSCULAR VOLUME 95.9 fL (81.0-99.0); MEAN PLATELET VOLUME 9.3 fl (7.4-10.4); NEUTROPHILS % 72.2 % (40.0-76.0); PLATELET 107 x1000/uL (130-400); RED BLOOD CELL COUNT 2.75 mill/uL (4.2-5.4); RED CELL DISTRIBUTION WIDTH 16.9 % (11.6-14.6)
[2018-09-01] MEDS: VERAPAMIL HCL 40MG TABLET PO SCH ×3 (05:28→21:35)
[2018-09-01] MEDS: SILDENAFIL CITRATE 20MG TABLET PO SCH ×3 (05:29→21:35)
[2018-09-01] MEDS: ENOXAPARIN 30MG/0.3ML SYR SUBCUT SCH (09:00)
[2018-09-01] MEDS: FERROUS SULFATE 325MG TABLET PO SCH ×3 (09:20→18:32)
[2018-09-01] MEDS: LOSARTAN POTASSIUM 25 MG TABLET PO SCH (09:20)
[2018-09-01] MEDS: DOCUSATE SODIUM 250MG CAPSULE PO SCH (09:20)
[2018-09-01] MEDS: FUROSEMIDE 40MG/4ML VIAL IVP SCH (09:20)
[2018-09-01] MEDS: BUDESONIDE 0.5MG/2ML NEB HHN SCH ×2 (12:48→20:20)
[2018-09-02] VITALS (12 sets, daily range): BP systolic 94–134; BP diastolic 35–73
[2018-09-02] MEDS: IPRATROPIUM/ALBUTEROL 0.5-3(2.5)MG/3ML NEB HHN SCH ×2 (02:01→21:06)
[2018-09-02] MEDS: SILDENAFIL CITRATE 20MG TABLET PO SCH ×3 (05:53→21:14)
[2018-09-02] MEDS: VERAPAMIL HCL 40MG TABLET PO SCH ×3 (05:53→21:14)
[2018-09-02 06:27] LABS: BASOPHILS % 0.2 % (0.0-2.0); EOSINOPHILS % 1.2 % (0.0-5.0); HEMATOCRIT. 29.6 % (36.0-48.0); HEMOGLOBIN. 9.5 g/dL (12.0-16.0); LYMPHOCYTES % 17.9 % (20.0-50.0); MEAN CORPUSCULAR HEMOGLOBIN 30.8 pg (28.0-32.0); MEAN CORPUSCULAR VOLUME 96.2 fL (81.0-99.0); MEAN PLATELET VOLUME 9.3 fl (7.4-10.4); MONOCYTES % 12.7 % (2.0-8.0); PLATELET 113 x1000/uL (130-400); RED BLOOD CELL COUNT 3.08 mill/uL (4.2-5.4); RED CELL DISTRIBUTION WIDTH 17.2 % (11.6-14.6)
[2018-09-02] MEDS: DOCUSATE SODIUM 250MG CAPSULE PO SCH (09:53)
[2018-09-02] MEDS: FERROUS SULFATE 325MG TABLET PO SCH ×3 (09:54→17:49)
[2018-09-02] MEDS: FUROSEMIDE 40MG/4ML VIAL IVP SCH (09:55)
[2018-09-02] MEDS: ENOXAPARIN 30MG/0.3ML SYR SUBCUT SCH (09:55)
[2018-09-02] MEDS: LOSARTAN POTASSIUM 25 MG TABLET PO SCH (09:57)
[2018-09-02] MEDS: BUDESONIDE 0.5MG/2ML NEB HHN SCH (21:06)
[2018-09-03] VITALS (8 sets, daily range): BP systolic 96–137; BP diastolic 49–81
[2018-09-03] MEDS: IPRATROPIUM/ALBUTEROL 0.5-3(2.5)MG/3ML NEB HHN SCH ×3 (02:14→14:22)
[2018-09-03] MEDS: SILDENAFIL CITRATE 20MG TABLET PO SCH (05:20)
[2018-09-03] MEDS: VERAPAMIL HCL 40MG TABLET PO SCH (05:20)
[2018-09-03] MEDS: BUDESONIDE 0.5MG/2ML NEB HHN SCH (08:45)
[2018-09-03 08:48] LABS: BASOPHILS % 0.7 % (0.0-2.0); EOSINOPHILS % 1.5 % (0.0-5.0); HEMATOCRIT. 30.6 % (36.0-48.0); HEMOGLOBIN. 9.3 g/dL (12.0-16.0); LYMPHOCYTES % 15.3 % (20.0-50.0); MEAN CORPUSCULAR HEMOGLOBIN 30.5 pg (28.0-32.0); MEAN CORPUSCULAR VOLUME 99.8 fL (81.0-99.0); MEAN PLATELET VOLUME 10.3 fl (7.4-10.4); MONOCYTES % 8.5 % (2.0-8.0); PLATELET 102 x1000/uL (130-400); RED BLOOD CELL COUNT 3.06 mill/uL (4.2-5.4)
[2018-09-03] MEDS: FERROUS SULFATE 325MG TABLET PO SCH (10:30)
[2018-09-03] MEDS: DOCUSATE SODIUM 250MG CAPSULE PO SCH (10:30)
[2018-09-03] MEDS: LOSARTAN POTASSIUM 25 MG TABLET PO SCH (10:30)
[2018-09-03] MEDS: FUROSEMIDE 40MG/4ML VIAL IVP SCH (10:30)
[2018-09-03] MEDS: ENOXAPARIN 30MG/0.3ML SYR SUBCUT SCH (10:44)
== END 2018-09-03 19:00 | disposition home or self-care (01) | DRG 291 ==
LOC: ER 00:40 → 5EST 07:59 → ENRESERV 07:59
PROVIDERS: ADMIT Internal Medicine; ATTEND Internal Medicine
PROC: 5A09357 Assistance with Respiratory Ventilation, Less than 24 Consecutive Hours, Continuous Positive Airway Pressure (ICD-10-PCS; principal; 2018-08-31)
DX: I13.0 Hypertensive heart and chronic kidney disease with heart failure and stage 1 through stage 4 chronic kidney disease, or unspecified chronic kidney disease (principal); I50.33 Acute on chronic diastolic (congestive) heart failure; J96.21 Acute and chronic respiratory failure with hypoxia; J18.1 Lobar pneumonia, unspecified organism; J44.1 Chronic obstructive pulmonary disease with (acute) exacerbation; E44.1 Mild protein-calorie malnutrition; N17.9 Acute kidney failure, unspecified; J44.0 Chronic obstructive pulmonary disease with (acute) lower respiratory infection; N18.3 Chronic kidney disease, stage 3 (moderate); D63.8 Anemia in other chronic diseases classified elsewhere; E87.8 Other disorders of electrolyte and fluid balance, not elsewhere classified; I08.0 Rheumatic disorders of both mitral and aortic valves; I27.20 Pulmonary hypertension, unspecified; E07.9 Disorder of thyroid, unspecified; Z99.81 Dependence on supplemental oxygen; F17.210 Nicotine dependence, cigarettes, uncomplicated; I25.10 Atherosclerotic heart disease of native coronary artery without angina pectoris; M54.30 Sciatica, unspecified side; I48.91 Unspecified atrial fibrillation; I42.1 Obstructive hypertrophic cardiomyopathy; E78.5 Hyperlipidemia, unspecified; Z91.14 Patient's other noncompliance with medication regimen; Z87.01 Personal history of pneumonia (recurrent); Z88.0 Allergy status to penicillin; Z68.24 Body mass index [BMI] 24.0-24.9, adult
CPT/HCPCS: 36415; 71045; 80048; 82270; 83735; 83880; 84484; 85027; 93005; 94640; 94660; 96365; 96366; 96375; 97162; 99291; J1650; J1940; J2930; J3475; J7611; J7620; J7626

== ENCOUNTER 2018-10-10 19:52 | Inpatient (IN) | payer MEDICARE, MEDICAID ==
[~2018-10-10] VITALS: Ht 165.1 cm; Wt 27.2 kg
[~2018-10-10 19:52] MED LIST changes: -LEVO250T58 MT; -LOSA25TA3 PO
[2018-10-10] MEDS ORDERED: METHYLPREDNISOLONE SOD SUCC 125 MG/2 ML VIAL IV STA (20:07)
[2018-10-10] MEDS ORDERED: LEVOFLOXACIN 750MG PREMIX 150 ML IV ONE (20:15)
[2018-10-10] MEDS ORDERED: ASPIRIN 81MG TABLET PO ONE (20:15)
[2018-10-10] MEDS ORDERED: IPRATROPIUM/ALBUTEROL 0.5-3(2.5)MG/3ML NEB HHN ONE (20:15)
[2018-10-10] MEDS ORDERED: FUROSEMIDE 40MG/4ML VIAL IV ONE (20:15)
[2018-10-10 20:36] LABS: EOSINOPHILS % 3.3 % (0.0-5.0); HEMATOCRIT. 23.4 % (36.0-48.0); HEMOGLOBIN. 7.1 g/dL (12.0-16.0); LYMPHOCYTES % 19.1 % (20.0-50.0); MEAN CORPUSCULAR HEMOGLOBIN 25.3 pg (28.0-32.0); MEAN CORPUSCULAR VOLUME 83.7 fL (81.0-99.0); MONOCYTES % 7.8 % (2.0-8.0); NEUTROPHILS % 68.8 % (40.0-76.0); PLATELET 319 x1000/uL (130-400); RED BLOOD CELL COUNT 2.79 mill/uL (4.2-5.4); RED CELL DISTRIBUTION WIDTH 19.8 % (11.6-14.6)
[2018-10-10 20:40] LABS: CHLORIDE 96 mEq/L (98-107)
[2018-10-10 20:44] LABS: ETHANOL BLOOD < 10 mg/dL
[2018-10-10 20:54] LABS: BG BILEVEL POS AIRWAY PRESSURE 15/5; BG CARBOXYHEMOGLOBIN 1.4 % (0.5-1.5); BG DEOXYHEMOGLOBIN 0.3 % (0.0-5.0); BG FRACTION INSPIRED OXYGEN 100; BG HCO3 ACT 22.4 mmol/L (22.0-26.0); BG METHEMOGLOBIN 0.5 % (0.0-1.5); BG OXYGEN SATURATION 99.7 % (92.0-98.5); BG OXYHEMOGLOBIN 97.8 % (94.0-97.0); BG PH 7.477 (7.350-7.450); BG PO2 314.1 mmHg (75.0-100.0); BG SAMPLE SITE LEFT RADIAL; BG TOTAL HEMOGLOBIN 6.4 g/dL (12.0-18.0); BG VENT MODE MASK - BIPAP
[2018-10-10 21:02] LABS: PARTIAL THROMBOPLASTIN TIME 24.9 sec (23.4-31.0); PROTHROMBIN TIME 9.8 sec (9.1-11.1)
[2018-10-10 21:36] LABS: CLARITY URINE CLEAR (CLEAR); COLOR URINE YELLOW (YELLOW); KETONES URINE NEGATIVE (NEGATIVE); LEUKOCYTE ESTERASE URINE NEGATIVE (NEGATIVE); NITRITE URINE NEGATIVE (NEGATIVE); OCCULT BLOOD URINE NEGATIVE (NEGATIVE); PROTEIN URINE NEGATIVE (NEGATIVE); SPECIFIC GRAVITY URINE 1.013 (1.005-1.030)
[2018-10-10 22:07] LABS: *AMPHETAMINES SCREEN URINE NEGATIVE (NEGATIVE)
[2018-10-10 22:08] LABS: *BARBITURATES SCREEN URINE NEGATIVE (NEGATIVE); *BENZODIAZEPINES SCREEN URINE NEGATIVE (NEGATIVE); *COCAINE SCREEN URINE NEGATIVE (NEGATIVE); CANNABINOID URINE SCREEN NEGATIVE (NEGATIVE); METHADONE URINE SCREEN NEGATIVE (NEGATIVE); OPIATES URINE SCREEN NEGATIVE (NEGATIVE); PHENCYCLIDINE URINE SCREEN NEGATIVE (NEGATIVE)
[2018-10-10] MEDS ORDERED: DOCUSATE SODIUM 100MG CAPSULE PO PRN (23:30)
[2018-10-10] MEDS ORDERED: CLONIDINE 0.1MG TABLET PO PRN (23:30)
[2018-10-10] MEDS ORDERED: ACETAMINOPHEN 325MG TABLET PO PRN (23:30)
[2018-10-10] MEDS ORDERED: LEVOFLOXACIN 500MG PREMIX 100 ML IV SCH (23:30)
[2018-10-10] MEDS ORDERED: HYDROCODONE/ACETAMINOPHEN 5/325MG TABLET PO PRN (23:30)
[2018-10-10] MEDS ORDERED: ONDANSETRON HCL 4MG/2ML INJ IV PRN (23:30)
[2018-10-10] MEDS ORDERED: MAGNESIUM/ALUMINUM HYDROXIDE/SIMETHICONE 30ML UDC PO PRN (23:30)
[2018-10-10] MEDS ORDERED: IPRATROPIUM/ALBUTEROL 0.5-3(2.5)MG/3ML NEB INH PRN (23:30)
[2018-10-11] VITALS (14 sets, daily range): BP systolic 125–147; BP diastolic 48–72
[2018-10-11 05:54] LABS: MEAN CORPUSCULAR VOLUME 83.3 fL (81.0-99.0); MEAN PLATELET VOLUME 8.1 fl (7.4-10.4); PLATELET 237 x1000/uL (130-400); RED BLOOD CELL COUNT 2.27 mill/uL (4.2-5.4); RED CELL DISTRIBUTION WIDTH 19.6 % (11.6-14.6)
[2018-10-11] MEDS: METHYLPREDNISOLONE SOD SUCC 40 MG/ML VIAL IV SCH ×3 (06:22→20:40)
[2018-10-11 06:49] LABS: HEMOGLOBIN. 5.9 g/dL (12.0-16.0)
[2018-10-11 06:50] LABS: HEMATOCRIT. 18.9 % (36.0-48.0)
[2018-10-11 07:16] LABS: CREATINE KINASE MB FRACTION 3.1 ng/mL (0.5-3.6)
[2018-10-11] MEDS ORDERED: ENOXAPARIN 40MG/0.4ML SYR SUBCUT SCH (09:00)
[2018-10-11] MEDS ORDERED: ENOXAPARIN 30MG/0.3ML SYR SUBCUT SCH (09:00)
[2018-10-11] MEDS: FUROSEMIDE 40MG/4ML VIAL IVP SCH (13:25)
[2018-10-11 14:39] LABS: PLATELET ESTIMATE NORMAL
[2018-10-11] MEDS: SILDENAFIL CITRATE 20MG TABLET PO SCH ×2 (17:53→20:40)
[2018-10-11 19:50] LABS: TOTAL IRON BINDING CAPACITY 447 ug/dL (250-450)
[2018-10-11] MEDS: PANTOPRAZOLE SODIUM 40 MG/VIAL IV SCH (20:40)
[2018-10-11] MEDS ORDERED: LEVOFLOXACIN 250MG PREMIX 50 ML IV SCH (21:00)
[2018-10-11 21:39] LABS: HEMATOCRIT 21.9 % (36.0-48.0)
[2018-10-11 21:45] LABS: HEMOGLOBIN 6.9 g/dL (12.0-16.0)
[2018-10-12] VITALS (14 sets, daily range): BP systolic 116–156; BP diastolic 50–90
[2018-10-12] MEDS: METHYLPREDNISOLONE SOD SUCC 40 MG/ML VIAL IV SCH ×2 (05:17→13:39)
[2018-10-12] MEDS: SILDENAFIL CITRATE 20MG TABLET PO SCH ×3 (06:00→21:35)
[2018-10-12 06:27] LABS: BASOPHILS % 0.2 % (0.0-2.0); HEMOGLOBIN. 8.7 g/dL (12.0-16.0); LYMPHOCYTES % 8.3 % (20.0-50.0); MEAN CORPUSCULAR HEMOGLOBIN 27.3 pg (28.0-32.0); MEAN CORPUSCULAR VOLUME 84.9 fL (81.0-99.0); MEAN PLATELET VOLUME 8.3 fl (7.4-10.4); MONOCYTES % 5.3 % (2.0-8.0); NEUTROPHILS % 86.2 % (40.0-76.0); PLATELET 239 x1000/uL (130-400); RED BLOOD CELL COUNT 3.18 mill/uL (4.2-5.4)
[2018-10-12] MEDS: PANTOPRAZOLE SODIUM 40 MG/VIAL IV SCH ×2 (08:01→21:35)
[2018-10-12] MEDS: FUROSEMIDE 40MG/4ML VIAL IVP SCH (08:01)
[2018-10-12] MEDS ORDERED: FENTANYL CITRATE/PF 50MCG/ML 2ML VIAL ONE (10:02)
[2018-10-12] MEDS ORDERED: MIDAZOLAM HCL 5 MG/5 ML VIAL ONE (10:02)
[2018-10-12] MEDS: DOCUSATE SODIUM 100MG CAPSULE PO SCH ×2 (11:30→17:15)
[2018-10-12] MEDS: FERROUS SULFATE 325MG TABLET PO SCH (17:15)
[2018-10-13] VITALS (12 sets, daily range): BP systolic 109–146; BP diastolic 24–65
[2018-10-13 06:05] LABS: BASOPHILS % 0.1 % (0.0-2.0); HEMATOCRIT. 29.4 % (36.0-48.0); HEMOGLOBIN. 9.5 g/dL (12.0-16.0); LYMPHOCYTES % 10.7 % (20.0-50.0); MEAN CORPUSCULAR HEMOGLOBIN 27.5 pg (28.0-32.0); MEAN CORPUSCULAR VOLUME 85.5 fL (81.0-99.0); MEAN PLATELET VOLUME 8.1 fl (7.4-10.4); MONOCYTES % 11.3 % (2.0-8.0); NEUTROPHILS % 77.9 % (40.0-76.0); PLATELET 250 x1000/uL (130-400); RED BLOOD CELL COUNT 3.44 mill/uL (4.2-5.4); RED CELL DISTRIBUTION WIDTH 19.7 % (11.6-14.6)
[2018-10-13] MEDS: SILDENAFIL CITRATE 20MG TABLET PO SCH ×3 (06:06→22:37)
[2018-10-13] MEDS: FERROUS SULFATE 325MG TABLET PO SCH ×2 (08:38→17:31)
[2018-10-13] MEDS: PANTOPRAZOLE SODIUM 40 MG/VIAL IV SCH ×2 (09:53→22:37)
[2018-10-13] MEDS: FUROSEMIDE 40MG/4ML VIAL IVP SCH (09:54)
[2018-10-13] MEDS: DOCUSATE SODIUM 100MG CAPSULE PO SCH ×2 (09:54→17:31)
[2018-10-13] MEDS ORDERED: PANT40TA4 MT (16:02)
[2018-10-13] MEDS ORDERED: FERR325T23 PO (16:02)
[2018-10-13 18:44] LABS: BG BASE EXCESS 2.3 mmol/L (-2.0-2.0); BG CARBOXYHEMOGLOBIN 0.5 % (0.5-1.5); BG DEOXYHEMOGLOBIN 7.4 % (0.0-5.0); BG FRACTION INSPIRED OXYGEN 21; BG HCO3 ACT 24.6 mmol/L (22.0-26.0); BG METHEMOGLOBIN 0.6 % (0.0-1.5); BG OXYGEN SATURATION 92.5 % (92.0-98.5); BG OXYHEMOGLOBIN 91.5 % (94.0-97.0); BG PCO2 30.4 mmHg (35.0-45.0); BG PH 7.526 (7.350-7.450); BG PO2 61.9 mmHg (75.0-100.0); BG SAMPLE SITE RIGHT BRACHIAL; BG TOTAL HEMOGLOBIN 10.7 g/dL (12.0-18.0); BG VENT MODE ROOM AIR
[2018-10-13] MEDS: VERAPAMIL HCL 40MG TABLET PO SCH (22:38)
[2018-10-14] VITALS (10 sets, daily range): BP systolic 100–150; BP diastolic 48–83
[2018-10-14 06:29] LABS: HEMOGLOBIN 9.9 g/dL (12.0-16.0); MEAN CORPUSCULAR HEMOGLOBIN 27.1 pg (28.0-32.0); MEAN CORPUSCULAR VOLUME 84.9 fL (81.0-99.0); PLATELET 232 x1000/uL (130-400); RED BLOOD CELL COUNT 3.65 mill/uL (4.2-5.4); RED CELL DISTRIBUTION WIDTH 19.7 % (11.6-14.6)
[2018-10-14] MEDS: SILDENAFIL CITRATE 20MG TABLET PO SCH ×2 (06:31→14:00)
[2018-10-14] MEDS: VERAPAMIL HCL 40MG TABLET PO SCH ×2 (06:32→14:00)
[2018-10-14] MEDS: DOCUSATE SODIUM 100MG CAPSULE PO SCH (08:54)
[2018-10-14] MEDS: FUROSEMIDE 40MG/4ML VIAL IVP SCH (08:54)
[2018-10-14] MEDS: FERROUS SULFATE 325MG TABLET PO SCH (08:54)
[2018-10-14] MEDS: PANTOPRAZOLE SODIUM 40 MG/VIAL IV SCH (08:54)
== END 2018-10-14 17:38 | disposition home or self-care (01) | DRG 291 ==
LOC: ER 19:52 → 5EST 22:00 → EDBEDREQSVC 22:03 → EDBEDREQ 22:03 → EDBEDREQTM 22:03 → ENRESERV 23:13
PROVIDERS: ADMIT Internal Medicine; ATTEND Internal Medicine
PROC: 30233N1 Transfusion of Nonautologous Red Blood Cells into Peripheral Vein, Percutaneous Approach (ICD-10-PCS; 2018-10-11)
PROC: 0DJ08ZZ Inspection of Upper Intestinal Tract, Via Natural or Artificial Opening Endoscopic (ICD-10-PCS; principal; 2018-10-12)
DX: I13.0 Hypertensive heart and chronic kidney disease with heart failure and stage 1 through stage 4 chronic kidney disease, or unspecified chronic kidney disease (principal); I50.33 Acute on chronic diastolic (congestive) heart failure; J96.20 Acute and chronic respiratory failure, unspecified whether with hypoxia or hypercapnia; J44.1 Chronic obstructive pulmonary disease with (acute) exacerbation; E44.1 Mild protein-calorie malnutrition; D62 Acute posthemorrhagic anemia; E87.1 Hypo-osmolality and hyponatremia; E87.2 Acidosis; Z68.1 Body mass index [BMI] 19.9 or less, adult; J84.9 Interstitial pulmonary disease, unspecified; I42.1 Obstructive hypertrophic cardiomyopathy; R59.0 Localized enlarged lymph nodes; N18.3 Chronic kidney disease, stage 3 (moderate); E78.00 Pure hypercholesterolemia, unspecified; D50.9 Iron deficiency anemia, unspecified; M54.30 Sciatica, unspecified side; B19.20 Unspecified viral hepatitis C without hepatic coma; D72.829 Elevated white blood cell count, unspecified; E07.9 Disorder of thyroid, unspecified; E11.22 Type 2 diabetes mellitus with diabetic chronic kidney disease; E78.5 Hyperlipidemia, unspecified; E87.8 Other disorders of electrolyte and fluid balance, not elsewhere classified; I08.0 Rheumatic disorders of both mitral and aortic valves; I25.10 Atherosclerotic heart disease of native coronary artery without angina pectoris; I27.20 Pulmonary hypertension, unspecified; I48.0 Paroxysmal atrial fibrillation; K22.2 Esophageal obstruction; K29.70 Gastritis, unspecified, without bleeding; K44.9 Diaphragmatic hernia without obstruction or gangrene; R04.0 Epistaxis; Z87.891 Personal history of nicotine dependence; Z88.0 Allergy status to penicillin; Z99.81 Dependence on supplemental oxygen; Z79.84 Long term (current) use of oral hypoglycemic drugs; Z79.899 Other long term (current) drug therapy
CPT/HCPCS: 36415; 36600; 71045; 80048; 80061; 80305; 80320; 82375; 82550; 82553; 82728; 82805; 83540; 83550; 83605; 83735; 83880; 84443; 84484; 85014; 85018; 85027; 85044; 86850; 86870; 86900; 86920; 93005; 93880; 93970; 96365; 96375; 99291; C9113; J1650; J1940; J1956; J2250; J2920; J2930; J3010; J7050; J7620; P9016; G0480

== ENCOUNTER 2018-10-18 00:52 | Inpatient (IN) | payer MEDICARE, MEDICAID ==
[~2018-10-18] VITALS: Ht 162.6 cm; Wt 51.8 kg
[2018-10-18] VITALS (9 sets, daily range): BP systolic 113–149; BP diastolic 31–63
[~2018-10-18 00:52] MED LIST changes: +FERR325T23 PO; +PANT40TA4 MT
[2018-10-18] MEDS ORDERED: METHYLPREDNISOLONE SOD SUCC 125 MG/2 ML VIAL IV STA (01:02)
[2018-10-18] MEDS ORDERED: FUROSEMIDE 40MG/4ML VIAL IV ONE (01:15)
[2018-10-18 01:19] LABS: BASOPHILS % 0.7 % (0.0-2.0); EOSINOPHILS % 2.8 % (0.0-5.0); HEMATOCRIT. 31.6 % (36.0-48.0); HEMOGLOBIN. 9.9 g/dL (12.0-16.0); LYMPHOCYTES % 12.8 % (20.0-50.0); MEAN CORPUSCULAR HEMOGLOBIN 26.6 pg (28.0-32.0); MEAN CORPUSCULAR VOLUME 84.6 fL (81.0-99.0); MEAN PLATELET VOLUME 7.9 fl (7.4-10.4); MONOCYTES % 6.2 % (2.0-8.0); NEUTROPHILS % 77.5 % (40.0-76.0); PLATELET 218 x1000/uL (130-400); RED BLOOD CELL COUNT 3.73 mill/uL (4.2-5.4); RED CELL DISTRIBUTION WIDTH 20.1 % (11.6-14.6)
[2018-10-18] MEDS: NITROGLYCERIN 0.4MG TABLET SL SL PRN ×2 (01:22→01:33)
[2018-10-18 01:26] LABS: CHLORIDE 98 mEq/L (98-107)
[2018-10-18] MEDS ORDERED: AZITHROMYCIN 500 MG in DEXT 5% WATER 250 ML IV NR (04:00)
[2018-10-18] MEDS ORDERED: CEFTRIAXONE 1 G PREMIX 50 ML IV NR (04:00)
[2018-10-18] MEDS ORDERED: DEXTROSE 50% WATER 50ML SYRINGE IV PRN (08:00)
[2018-10-18] MEDS ORDERED: POTASSIUM CHLORIDE 20MEQ/PACKET PO SCH (08:00)
[2018-10-18] MEDS ORDERED: MAGNESIUM/ALUMINUM HYDROXIDE/SIMETHICONE 30ML UDC PO PRN (08:00)
[2018-10-18] MEDS ORDERED: LORAZEPAM 0.5MG TABLET PO PRN (08:00)
[2018-10-18] MEDS ORDERED: IPRATROPIUM/ALBUTEROL 0.5-3(2.5)MG/3ML NEB INH PRN (08:00)
[2018-10-18] MEDS ORDERED: ONDANSETRON HCL 4MG/2ML INJ IV PRN (08:00)
[2018-10-18] MEDS ORDERED: NITROGLYCERIN 0.4MG TABLET SL SL PRN (08:00)
[2018-10-18] MEDS ORDERED: ACETAMINOPHEN 325MG TABLET PO PRN (08:00)
[2018-10-18] MEDS ORDERED: CLONIDINE 0.1MG TABLET PO PRN (08:00)
[2018-10-18] MEDS ORDERED: TRAMADOL 50MG TABLET PO PRN (08:00)
[2018-10-18] MEDS ORDERED: GUAIFENESIN 200MG/10ML SUGAR FREE UDC PO PRN (08:00)
[2018-10-18] MEDS ORDERED: DIPHENHYDRAMINE 50MG/ML VIAL IV PRN (08:00)
[2018-10-18] MEDS ORDERED: ASCORBIC ACID 500 MG TABLET PO SCH (09:00)
[2018-10-18] MEDS: ZINC SULFATE 220 MG ( 50 ) CAPSULE PO SCH (09:16)
[2018-10-18] MEDS: GUAIFENESIN 600MG ER TABLET PO SCH ×2 (09:16→20:57)
[2018-10-18] MEDS: ASCORBIC ACID 500 MG TABLET PO SCH ×2 (09:16→20:57)
[2018-10-18] MEDS: ASPIRIN 325MG EC TABLET PO SCH (09:16)
[2018-10-18] MEDS: FUROSEMIDE 40MG/4ML VIAL IV SCH ×2 (09:16→19:04)
[2018-10-18] MEDS: ENOXAPARIN 40MG/0.4ML SYR SUBCUT SCH (09:18)
[2018-10-18] MEDS ORDERED: KCL 20MEQ/100ML PREMIX 100 ML IV SCH (10:00)
[2018-10-18] MEDS: LEVOFLOXACIN 750MG PREMIX 150 ML IV SCH (10:40)
[2018-10-18 11:25] LABS: *AMPHETAMINES SCREEN URINE NEGATIVE (NEGATIVE); *BARBITURATES SCREEN URINE NEGATIVE (NEGATIVE); *BENZODIAZEPINES SCREEN URINE NEGATIVE (NEGATIVE); *COCAINE SCREEN URINE NEGATIVE (NEGATIVE); CANNABINOID URINE SCREEN NEGATIVE (NEGATIVE)
[2018-10-18 11:26] LABS: METHADONE URINE SCREEN NEGATIVE (NEGATIVE); OPIATES URINE SCREEN NEGATIVE (NEGATIVE); PHENCYCLIDINE URINE SCREEN NEGATIVE (NEGATIVE)
[2018-10-18] MEDS: INSULIN LISPRO 100 UNITS/ML SUBCUT SCH ×3 (12:20→20:44)
[2018-10-18] MEDS: BLOOD SUGAR DIAGNOSTIC STRIP TEST SCH ×3 (12:23→20:43)
[2018-10-18] MEDS: SILDENAFIL CITRATE 20MG TABLET PO SCH ×2 (14:19→21:00)
[2018-10-18 16:41] LABS: CREATINE KINASE MB FRACTION 3.4 ng/mL (0.5-3.6)
[2018-10-18] MEDS: SPIRONOLACTONE 25MG TABLET PO SCH (19:05)
[2018-10-18] MEDS: IPRATROPIUM/ALBUTEROL 0.5-3(2.5)MG/3ML NEB HHN SCH (20:25)
[2018-10-18] MEDS ORDERED: ZOLPIDEM TARTRATE 5MG TABLET PO PRN (21:00)
[2018-10-18 23:08] LABS: CREATINE KINASE MB FRACTION 3.3 ng/mL (0.5-3.6)
[2018-10-19] VITALS (12 sets, daily range): BP systolic 110–144; BP diastolic 42–79
[2018-10-19] MEDS: IPRATROPIUM/ALBUTEROL 0.5-3(2.5)MG/3ML NEB HHN SCH ×6 (00:02→20:39)
[2018-10-19] MEDS: SPIRONOLACTONE 25MG TABLET PO SCH ×2 (05:30→17:09)
[2018-10-19] MEDS: FUROSEMIDE 40MG/4ML VIAL IV SCH ×2 (05:30→17:08)
[2018-10-19] MEDS: SILDENAFIL CITRATE 20MG TABLET PO SCH ×3 (05:30→22:23)
[2018-10-19] MEDS: BLOOD SUGAR DIAGNOSTIC STRIP TEST SCH ×2 (06:38→11:50)
[2018-10-19] MEDS: INSULIN LISPRO 100 UNITS/ML SUBCUT SCH ×2 (07:20→12:17)
[2018-10-19] MEDS: GUAIFENESIN 600MG ER TABLET PO SCH ×2 (08:13→20:57)
[2018-10-19] MEDS: ASCORBIC ACID 500 MG TABLET PO SCH ×2 (08:13→20:57)
[2018-10-19] MEDS: ASPIRIN 325MG EC TABLET PO SCH (08:13)
[2018-10-19] MEDS: ZINC SULFATE 220 MG ( 50 ) CAPSULE PO SCH (08:13)
[2018-10-19] MEDS: ENOXAPARIN 40MG/0.4ML SYR SUBCUT SCH (08:14)
[2018-10-19 12:12] LABS: BASOPHILS % 0.7 % (0.0-2.0); EOSINOPHILS % 0.3 % (0.0-5.0); HEMATOCRIT. 31.3 % (36.0-48.0); HEMOGLOBIN. 9.7 g/dL (12.0-16.0); LYMPHOCYTES % 9.1 % (20.0-50.0); MEAN CORPUSCULAR HEMOGLOBIN 26.9 pg (28.0-32.0); MEAN CORPUSCULAR VOLUME 86.4 fL (81.0-99.0); MEAN PLATELET VOLUME 8.4 fl (7.4-10.4); MONOCYTES % 13.3 % (2.0-8.0); NEUTROPHILS % 76.6 % (40.0-76.0); PLATELET 234 x1000/uL (130-400); RED BLOOD CELL COUNT 3.62 mill/uL (4.2-5.4); RED CELL DISTRIBUTION WIDTH 20.1 % (11.6-14.6)
[2018-10-19 12:20] LABS: CHLORIDE 99 mEq/L (98-107)
[2018-10-19] MEDS: DOCUSATE SODIUM 100MG CAPSULE PO PRN ×2 (12:22→22:23)
[2018-10-19 12:28] LABS: CREATINE KINASE 54 IU/L (26-192)
[2018-10-19 12:29] LABS: CREATINE KINASE MB FRACTION 3.4 ng/mL (0.5-3.6)
[2018-10-19 12:32] LABS: TOTAL IRON BINDING CAPACITY 457 ug/dL (250-450)
[2018-10-19 14:35] LABS: FOLIC ACID (FOLATE) SERUM 13.7 ng/mL (>5.38)
[2018-10-20] VITALS (12 sets, daily range): BP systolic 98–148; BP diastolic 38–65
[2018-10-20] MEDS: IPRATROPIUM/ALBUTEROL 0.5-3(2.5)MG/3ML NEB HHN SCH ×6 (00:30→21:28)
[2018-10-20] MEDS: FUROSEMIDE 40MG/4ML VIAL IV SCH ×2 (05:58→17:05)
[2018-10-20] MEDS: SPIRONOLACTONE 25MG TABLET PO SCH ×2 (06:09→17:05)
[2018-10-20] MEDS: SILDENAFIL CITRATE 20MG TABLET PO SCH ×3 (06:10→21:45)
[2018-10-20] MEDS: GUAIFENESIN 600MG ER TABLET PO SCH ×2 (08:05→21:43)
[2018-10-20] MEDS: ASPIRIN 325MG EC TABLET PO SCH (08:05)
[2018-10-20] MEDS: ASCORBIC ACID 500 MG TABLET PO SCH ×2 (08:05→21:44)
[2018-10-20] MEDS: ENOXAPARIN 30MG/0.3ML SYR SUBCUT SCH (08:05)
[2018-10-20] MEDS: ZINC SULFATE 220 MG ( 50 ) CAPSULE PO SCH (08:05)
[2018-10-20] MEDS: VERAPAMIL HCL 40MG TABLET PO SCH ×3 (10:22→21:45)
[2018-10-20] MEDS: LEVOFLOXACIN 750MG PREMIX 150 ML IV SCH (10:23)
[2018-10-21] VITALS (19 sets, daily range): BP systolic 103–159; BP diastolic 47–72
[2018-10-21] MEDS: IPRATROPIUM/ALBUTEROL 0.5-3(2.5)MG/3ML NEB HHN SCH ×5 (00:47→20:52)
[2018-10-21] MEDS: FUROSEMIDE 40MG/4ML VIAL IV SCH (06:10)
[2018-10-21] MEDS: VERAPAMIL HCL 40MG TABLET PO SCH ×3 (06:10→22:05)
[2018-10-21] MEDS: SILDENAFIL CITRATE 20MG TABLET PO SCH ×3 (06:11→22:06)
[2018-10-21] MEDS: SPIRONOLACTONE 25MG TABLET PO SCH (06:11)
[2018-10-21 07:08] LABS: BASOPHILS % 0.6 % (0.0-2.0); EOSINOPHILS % 2.2 % (0.0-5.0); HEMATOCRIT. 26.3 % (36.0-48.0); HEMOGLOBIN. 8.4 g/dL (12.0-16.0); LYMPHOCYTES % 17.1 % (20.0-50.0); MEAN CORPUSCULAR HEMOGLOBIN 27.7 pg (28.0-32.0); MEAN CORPUSCULAR VOLUME 86.4 fL (81.0-99.0); MEAN PLATELET VOLUME 8.6 fl (7.4-10.4); MONOCYTES % 10.2 % (2.0-8.0); NEUTROPHILS % 69.9 % (40.0-76.0); PLATELET 204 x1000/uL (130-400); RED BLOOD CELL COUNT 3.04 mill/uL (4.2-5.4); RED CELL DISTRIBUTION WIDTH 20.5 % (11.6-14.6)
[2018-10-21] MEDS: DOCUSATE SODIUM 100MG CAPSULE PO PRN (08:40)
[2018-10-21] MEDS: ASCORBIC ACID 500 MG TABLET PO SCH ×2 (08:40→22:06)
[2018-10-21] MEDS: ASPIRIN 325MG EC TABLET PO SCH (08:40)
[2018-10-21] MEDS: ENOXAPARIN 30MG/0.3ML SYR SUBCUT SCH (08:41)
[2018-10-21] MEDS: ZINC SULFATE 220 MG ( 50 ) CAPSULE PO SCH (08:41)
[2018-10-21] MEDS: GUAIFENESIN 600MG ER TABLET PO SCH ×2 (08:41→22:06)
[2018-10-22] VITALS (16 sets, daily range): BP systolic 100–163; BP diastolic 30–66
[2018-10-22] MEDS: IPRATROPIUM/ALBUTEROL 0.5-3(2.5)MG/3ML NEB HHN SCH ×5 (00:36→16:38)
[2018-10-22 06:40] LABS: BASOPHILS % 0.4 % (0.0-2.0); EOSINOPHILS % 2.9 % (0.0-5.0); HEMATOCRIT. 26.2 % (36.0-48.0); HEMOGLOBIN. 8.3 g/dL (12.0-16.0); LYMPHOCYTES % 17.1 % (20.0-50.0); MEAN CORPUSCULAR HEMOGLOBIN 27.5 pg (28.0-32.0); MEAN CORPUSCULAR VOLUME 86.9 fL (81.0-99.0); MEAN PLATELET VOLUME 8.7 fl (7.4-10.4); MONOCYTES % 8.9 % (2.0-8.0); NEUTROPHILS % 70.7 % (40.0-76.0); PLATELET 196 x1000/uL (130-400); RED BLOOD CELL COUNT 3.02 mill/uL (4.2-5.4); RED CELL DISTRIBUTION WIDTH 20.7 % (11.6-14.6)
[2018-10-22] MEDS: VERAPAMIL HCL 40MG TABLET PO SCH ×2 (07:01→14:15)
[2018-10-22] MEDS: SILDENAFIL CITRATE 20MG TABLET PO SCH ×2 (07:02→14:15)
[2018-10-22] MEDS: ASCORBIC ACID 500 MG TABLET PO SCH (08:07)
[2018-10-22] MEDS: ASPIRIN 325MG EC TABLET PO SCH (08:07)
[2018-10-22] MEDS: ENOXAPARIN 30MG/0.3ML SYR SUBCUT SCH (08:08)
[2018-10-22] MEDS: GUAIFENESIN 600MG ER TABLET PO SCH (08:08)
[2018-10-22] MEDS: DOCUSATE SODIUM 100MG CAPSULE PO PRN (08:08)
[2018-10-22] MEDS: ZINC SULFATE 220 MG ( 50 ) CAPSULE PO SCH (08:08)
[2018-10-22] MEDS ORDERED: FUROSEMIDE 40MG/4ML VIAL IV SCH (09:00)
[2018-10-22] MEDS: LEVOFLOXACIN 750MG PREMIX 150 ML IV SCH (10:24)
== END 2018-10-22 20:18 | disposition home or self-care (01) | DRG 314 ==
LOC: ER 00:52 → 3WST 04:13 → EDBEDREQ 04:18 → EDBEDREQSVC 04:18 → EDBEDREQTM 04:18 → ENRESERV 04:59
PROVIDERS: ADMIT Internal Medicine; ATTEND Internal Medicine
PROC: 5A09357 Assistance with Respiratory Ventilation, Less than 24 Consecutive Hours, Continuous Positive Airway Pressure (ICD-10-PCS; principal; 2018-10-18)
PROC: 5A09357 Assistance with Respiratory Ventilation, Less than 24 Consecutive Hours, Continuous Positive Airway Pressure (ICD-10-PCS; 2018-10-20)
DX: I27.22 Pulmonary hypertension due to left heart disease (principal); J18.9 Pneumonia, unspecified organism; I50.33 Acute on chronic diastolic (congestive) heart failure; J96.00 Acute respiratory failure, unspecified whether with hypoxia or hypercapnia; J44.0 Chronic obstructive pulmonary disease with (acute) lower respiratory infection; E44.1 Mild protein-calorie malnutrition; I47.1 Supraventricular tachycardia; Z68.1 Body mass index [BMI] 19.9 or less, adult; I42.1 Obstructive hypertrophic cardiomyopathy; I05.0 Rheumatic mitral stenosis; I11.0 Hypertensive heart disease with heart failure; E83.51 Hypocalcemia; E87.6 Hypokalemia; D63.8 Anemia in other chronic diseases classified elsewhere; E80.6 Other disorders of bilirubin metabolism; E11.9 Type 2 diabetes mellitus without complications; E78.5 Hyperlipidemia, unspecified; Z87.891 Personal history of nicotine dependence; Z79.51 Long term (current) use of inhaled steroids; Z79.899 Other long term (current) drug therapy; Z88.0 Allergy status to penicillin
CPT/HCPCS: 36415; 71045; 80048; 80061; 80305; 82550; 82553; 82607; 82746; 82962; 83036; 83540; 83550; 83605; 83735; 83880; 84484; 93005; 93306; 93970; 94640; 94660; 96374; 97116; 97162; 97166; 99285; J0456; J0696; J1650; J1940; J1956; J2930; J3480; J7040; J7060; J7620

== ENCOUNTER 2018-10-29 00:16 | Inpatient (IN) | payer MEDICARE, MEDICAID ==
[2018-10-29] VITALS (9 sets, daily range): BP systolic 110–140; BP diastolic 51–67
[~2018-10-29] VITALS: Ht 149.9 cm; Wt 50.8 kg
[2018-10-29] MEDS ORDERED: ONDANSETRON HCL 4MG/2ML INJ IV STA (00:22)
[2018-10-29] MEDS ORDERED: METHYLPREDNISOLONE SOD SUCC 125 MG/2 ML VIAL IV STA (00:22)
[2018-10-29] MEDS ORDERED: IPRATROPIUM BROMIDE (0.02%) 0.5MG/2.5ML NEB HHN STA (00:22)
[2018-10-29] MEDS: ALBUTEROL (0.083%) 2.5MG/3ML NEB HHN SCH ×3 (00:50→02:00)
[2018-10-29 00:52] LABS: BASOPHILS % 0.6 % (0.0-2.0); EOSINOPHILS % 1.4 % (0.0-5.0); HEMATOCRIT. 24.3 % (36.0-48.0); HEMOGLOBIN. 7.4 g/dL (12.0-16.0); LYMPHOCYTES % 8.6 % (20.0-50.0); MEAN CORPUSCULAR HEMOGLOBIN 28.9 pg (28.0-32.0); MEAN CORPUSCULAR VOLUME 94.6 fL (81.0-99.0); MEAN PLATELET VOLUME 8.2 fl (7.4-10.4); MONOCYTES % 8.4 % (2.0-8.0); PLATELET 229 x1000/uL (130-400); RED BLOOD CELL COUNT 2.57 mill/uL (4.2-5.4); RED CELL DISTRIBUTION WIDTH 25.3 % (11.6-14.6)
[2018-10-29 00:56] LABS: CHLORIDE 105 mEq/L (98-107)
[2018-10-29 01:11] LABS: BG BASE EXCESS -0.9 mmol/L (-2.0-2.0); BG BILEVEL POS AIRWAY PRESSURE 15/5; BG CARBOXYHEMOGLOBIN 0.9 % (0.5-1.5); BG DEOXYHEMOGLOBIN 2.1 % (0.0-5.0); BG FRACTION INSPIRED OXYGEN 40; BG HCO3 ACT 23.2 mmol/L (22.0-26.0); BG METHEMOGLOBIN 0.4 % (0.0-1.5); BG OXYGEN SATURATION 97.9 % (92.0-98.5); BG OXYHEMOGLOBIN 96.6 % (94.0-97.0); BG PCO2 35.3 mmHg (35.0-45.0); BG PH 7.435 (7.350-7.450); BG PO2 106.2 mmHg (75.0-100.0); BG SAMPLE SITE RIGHT RADIAL; BG TOTAL HEMOGLOBIN 7.9 g/dL (12.0-18.0); BG VENT MODE MASK - BIPAP; BG VENT RATE 14 set
[2018-10-29 01:17] LABS: PLATELET ESTIMATE NORMAL
[2018-10-29] MEDS ORDERED: AZITHROMYCIN 500 MG in DEXT 5% WATER 250 ML IV ONE (03:00)
[2018-10-29] MEDS ORDERED: CEFTRIAXONE 1 G PREMIX 50 ML IV ONE (03:00)
[2018-10-29] MEDS ORDERED: HYDROCODONE/ACETAMINOPHEN 5/325MG TABLET PO PRN (09:00)
[2018-10-29] MEDS ORDERED: GUAIFENESIN 200MG/10ML SUGAR FREE UDC PO PRN (09:00)
[2018-10-29] MEDS ORDERED: ONDANSETRON HCL 4MG/2ML INJ IV PRN (09:00)
[2018-10-29] MEDS ORDERED: IPRATROPIUM/ALBUTEROL 0.5-3(2.5)MG/3ML NEB INH PRN (09:00)
[2018-10-29] MEDS ORDERED: DOCUSATE SODIUM 100MG CAPSULE PO PRN (09:00)
[2018-10-29] MEDS ORDERED: DIPHENHYDRAMINE 50MG/ML VIAL IV PRN (09:00)
[2018-10-29] MEDS ORDERED: ACETAMINOPHEN 325MG TABLET PO PRN (09:00)
[2018-10-29 09:33] LABS: PHOSPHORUS 3.7 mg/dL (2.5-4.9)
[2018-10-29] MEDS ORDERED: IPRATROPIUM/ALBUTEROL 0.5-3(2.5)MG/3ML NEB HHN PRN (15:45)
[2018-10-29] MEDS ORDERED: AZITHROMYCIN 500 MG TABLET PO NR (15:45)
[2018-10-29] MEDS: FUROSEMIDE 40MG/4ML VIAL IVP SCH (15:49)
[2018-10-29] MEDS: VERAPAMIL HCL 40MG TABLET PO SCH ×2 (15:50→21:15)
[2018-10-29 16:21] LABS: CREATINE KINASE MB FRACTION 3.8 ng/mL (0.5-3.6)
[2018-10-29] MEDS: LETAIRIS 5MG TABLET PO SCH (18:18)
[2018-10-29] MEDS: SILDENAFIL CITRATE 20MG TABLET PO SCH (21:15)
[2018-10-29] MEDS: GUAIFENESIN 600MG ER TABLET PO SCH (21:15)
[2018-10-29 23:41] LABS: CREATINE KINASE MB FRACTION 3.4 ng/mL (0.5-3.6)
[2018-10-30] VITALS (22 sets, daily range): BP systolic 102–142; BP diastolic 44–92
[2018-10-30 06:11] LABS: BASOPHILS % 1.4 % (0.0-2.0); EOSINOPHILS % 0.5 % (0.0-5.0); HEMATOCRIT. 22.4 % (36.0-48.0); LYMPHOCYTES % 15.1 % (20.0-50.0); MEAN CORPUSCULAR HEMOGLOBIN 29.3 pg (28.0-32.0); MEAN CORPUSCULAR VOLUME 94.4 fL (81.0-99.0); MEAN PLATELET VOLUME 7.9 fl (7.4-10.4); MONOCYTES % 7.8 % (2.0-8.0); NEUTROPHILS % 75.2 % (40.0-76.0); PLATELET 218 x1000/uL (130-400); RED BLOOD CELL COUNT 2.38 mill/uL (4.2-5.4); RED CELL DISTRIBUTION WIDTH 25.5 % (11.6-14.6)
[2018-10-30 06:40] LABS: CHLORIDE 105 mEq/L (98-107)
[2018-10-30] MEDS: VERAPAMIL HCL 40MG TABLET PO SCH ×3 (06:40→20:27)
[2018-10-30] MEDS: SILDENAFIL CITRATE 20MG TABLET PO SCH ×3 (06:40→20:27)
[2018-10-30 07:03] LABS: LDL CHOLESTEROL 94 mg/dL (5-100)
[2018-10-30 07:04] LABS: HDL CHOLESTEROL 52 mg/dL (40-59)
[2018-10-30] MEDS: GUAIFENESIN 600MG ER TABLET PO SCH ×2 (08:02→20:28)
[2018-10-30] MEDS: LETAIRIS 5MG TABLET PO SCH (08:02)
[2018-10-30] MEDS: FUROSEMIDE 40MG/4ML VIAL IVP SCH (08:05)
[2018-10-30] MEDS: AZITHROMYCIN 250 MG TABLET PO SCH (08:23)
[2018-10-30] MEDS ORDERED: SODIUM BICARBONATE 4% (2.4MEQ) 5ML VIAL IV ONE (10:40)
[2018-10-30] MEDS ORDERED: LIDOCAINE HCL 1% 20ML VIAL (Pyxis) INJ ONE (10:40)
[2018-10-30] MEDS: BUDESONIDE 0.5MG/2ML NEB HHN SCH (10:46)
[2018-10-30] MEDS: IPRATROPIUM/ALBUTEROL 0.5-3(2.5)MG/3ML NEB HHN SCH ×3 (10:46→20:12)
[2018-10-30] MEDS: FERROUS SULFATE 325MG TABLET PO SCH (11:04)
[2018-10-31] VITALS (12 sets, daily range): BP systolic 101–140; BP diastolic 43–60
[2018-10-31] MEDS: IPRATROPIUM/ALBUTEROL 0.5-3(2.5)MG/3ML NEB HHN SCH ×6 (00:29→20:17)
[2018-10-31] MEDS: VERAPAMIL HCL 40MG TABLET PO SCH ×3 (05:23→21:17)
[2018-10-31] MEDS: SILDENAFIL CITRATE 20MG TABLET PO SCH ×3 (05:23→21:16)
[2018-10-31 06:53] LABS: BASOPHILS % 0.7 % (0.0-2.0); EOSINOPHILS % 2.1 % (0.0-5.0); HEMATOCRIT. 26.5 % (36.0-48.0); HEMOGLOBIN. 8.5 g/dL (12.0-16.0); LYMPHOCYTES % 17.6 % (20.0-50.0); MEAN CORPUSCULAR HEMOGLOBIN 29.3 pg (28.0-32.0); MEAN CORPUSCULAR VOLUME 91.6 fL (81.0-99.0); MEAN PLATELET VOLUME 8.2 fl (7.4-10.4); MONOCYTES % 7.6 % (2.0-8.0); PLATELET 187 x1000/uL (130-400); RED BLOOD CELL COUNT 2.89 mill/uL (4.2-5.4); RED CELL DISTRIBUTION WIDTH 22.4 % (11.6-14.6)
[2018-10-31] MEDS: BUDESONIDE 0.5MG/2ML NEB HHN SCH ×2 (08:21→20:18)
[2018-10-31] MEDS: GUAIFENESIN 600MG ER TABLET PO SCH ×2 (08:45→21:16)
[2018-10-31] MEDS: FERROUS SULFATE 325MG TABLET PO SCH (08:45)
[2018-10-31] MEDS: AZITHROMYCIN 250 MG TABLET PO SCH (08:45)
[2018-10-31] MEDS: FUROSEMIDE 40MG/4ML VIAL IVP SCH (08:46)
[2018-10-31] MEDS: LETAIRIS 5MG TABLET PO SCH (08:46)
[2018-10-31] MEDS ORDERED: FUROSEMIDE 20MG/2ML VIAL IVP NR (11:09)
[2018-11-01] VITALS (9 sets, daily range): BP systolic 119–142; BP diastolic 50–68
[2018-11-01] MEDS: IPRATROPIUM/ALBUTEROL 0.5-3(2.5)MG/3ML NEB HHN SCH ×6 (00:09→19:54)
[2018-11-01] MEDS: SILDENAFIL CITRATE 20MG TABLET PO SCH ×3 (05:50→20:56)
[2018-11-01] MEDS: VERAPAMIL HCL 40MG TABLET PO SCH ×3 (05:50→20:57)
[2018-11-01 06:46] LABS: INR 0.9; PARTIAL THROMBOPLASTIN TIME 27.2 sec (23.4-31.0); PROTHROMBIN TIME 9.5 sec (9.6-11.0)
[2018-11-01 06:58] LABS: BASOPHILS % 0.6 % (0.0-2.0); EOSINOPHILS % 2.9 % (0.0-5.0); HEMOGLOBIN. 9.5 g/dL (12.0-16.0); LYMPHOCYTES % 13.2 % (20.0-50.0); MEAN CORPUSCULAR HEMOGLOBIN 28.9 pg (28.0-32.0); MEAN CORPUSCULAR VOLUME 91.7 fL (81.0-99.0); MONOCYTES % 7.8 % (2.0-8.0); NEUTROPHILS % 75.5 % (40.0-76.0); PLATELET 212 x1000/uL (130-400); RED BLOOD CELL COUNT 3.27 mill/uL (4.2-5.4)
[2018-11-01] MEDS: GUAIFENESIN 600MG ER TABLET PO SCH ×2 (08:48→20:56)
[2018-11-01] MEDS: LETAIRIS 5MG TABLET PO SCH (08:48)
[2018-11-01] MEDS: FERROUS SULFATE 325MG TABLET PO SCH (08:48)
[2018-11-01] MEDS: FUROSEMIDE 40MG/4ML VIAL IVP SCH (08:48)
[2018-11-01] MEDS: BUDESONIDE 0.5MG/2ML NEB HHN SCH ×2 (09:07→16:37)
[2018-11-02] VITALS (8 sets, daily range): BP systolic 130–152; BP diastolic 41–55
[2018-11-02] MEDS: IPRATROPIUM/ALBUTEROL 0.5-3(2.5)MG/3ML NEB HHN SCH ×6 (00:14→21:47)
[2018-11-02] MEDS ORDERED: FURO-151 PO (04:49)
[2018-11-02] MEDS ORDERED: PANT40TA4 PO (04:51)
[2018-11-02 06:06] LABS: BASOPHILS % 0.5 % (0.0-2.0); EOSINOPHILS % 3.9 % (0.0-5.0); HEMATOCRIT. 28.4 % (36.0-48.0); HEMOGLOBIN. 9.2 g/dL (12.0-16.0); LYMPHOCYTES % 17.3 % (20.0-50.0); MEAN CORPUSCULAR HEMOGLOBIN 29.3 pg (28.0-32.0); MEAN CORPUSCULAR VOLUME 90.7 fL (81.0-99.0); MEAN PLATELET VOLUME 8.1 fl (7.4-10.4); NEUTROPHILS % 70.3 % (40.0-76.0); PLATELET 208 x1000/uL (130-400); RED BLOOD CELL COUNT 3.13 mill/uL (4.2-5.4); RED CELL DISTRIBUTION WIDTH 20.7 % (11.6-14.6)
[2018-11-02] MEDS: SILDENAFIL CITRATE 20MG TABLET PO SCH ×3 (06:45→22:06)
[2018-11-02] MEDS: VERAPAMIL HCL 40MG TABLET PO SCH ×3 (06:46→22:06)
[2018-11-02] MEDS: GUAIFENESIN 600MG ER TABLET PO SCH ×2 (10:41→22:06)
[2018-11-02] MEDS: FUROSEMIDE 40MG/4ML VIAL IVP SCH (10:41)
[2018-11-02] MEDS: LETAIRIS 5MG TABLET PO SCH (10:42)
[2018-11-02] MEDS: FERROUS SULFATE 325MG TABLET PO SCH (10:42)
[2018-11-02] MEDS ORDERED: GUAI-740 MT (17:17)
[2018-11-03] VITALS: BP 118/40
[2018-11-03] MEDS: IPRATROPIUM/ALBUTEROL 0.5-3(2.5)MG/3ML NEB HHN SCH ×3 (01:07→09:56)
[2018-11-03 04:00] VITALS: BP 140/51
[2018-11-03] MEDS: VERAPAMIL HCL 40MG TABLET PO SCH (05:45)
[2018-11-03] MEDS: SILDENAFIL CITRATE 20MG TABLET PO SCH (05:45)
[2018-11-03 08:00] VITALS: BP 141/76
[2018-11-03] MEDS: FUROSEMIDE 40MG/4ML VIAL IVP SCH ×2 (09:00→09:22)
[2018-11-03 09:10] LABS: IMMUNOGLOBULIN A 109 mg/dL (64-422); IMMUNOGLOBULIN G 810 mg/dL (700-1600); IMMUNOGLOBULIN M 49 mg/dL (26-217)
[2018-11-03] MEDS: GUAIFENESIN 600MG ER TABLET PO SCH (09:22)
[2018-11-03] MEDS: FERROUS SULFATE 325MG TABLET PO SCH (09:23)
[2018-11-03] MEDS: LETAIRIS 5MG TABLET PO SCH (09:24)
[2018-11-03 09:50] VITALS: BP 141/76
== END 2018-11-03 11:30 | disposition home or self-care (01) | DRG 291 ==
LOC: ER 00:16 → 5EST 04:00 → EDBEDREQ 04:04 → EDBEDREQSVC 04:04 → EDBEDREQTM 04:04 → ENRESERV 04:58 → CANRESERV 04:58 → ENRESERV 07:37 → 7WST 11-02 01:20
PROVIDERS: ADMIT Internal Medicine; ATTEND Internal Medicine
PROC: 5A09357 Assistance with Respiratory Ventilation, Less than 24 Consecutive Hours, Continuous Positive Airway Pressure (ICD-10-PCS; 2018-10-29)
PROC: 30233N1 Transfusion of Nonautologous Red Blood Cells into Peripheral Vein, Percutaneous Approach (ICD-10-PCS; principal; 2018-10-30)
PROC: 5A09357 Assistance with Respiratory Ventilation, Less than 24 Consecutive Hours, Continuous Positive Airway Pressure (ICD-10-PCS; 2018-10-30)
PROC: 5A09357 Assistance with Respiratory Ventilation, Less than 24 Consecutive Hours, Continuous Positive Airway Pressure (ICD-10-PCS; 2018-11-01)
PROC: 5A09357 Assistance with Respiratory Ventilation, Less than 24 Consecutive Hours, Continuous Positive Airway Pressure (ICD-10-PCS; 2018-11-02)
DX: I13.0 Hypertensive heart and chronic kidney disease with heart failure and stage 1 through stage 4 chronic kidney disease, or unspecified chronic kidney disease (principal); I50.33 Acute on chronic diastolic (congestive) heart failure; J18.9 Pneumonia, unspecified organism; J96.20 Acute and chronic respiratory failure, unspecified whether with hypoxia or hypercapnia; J44.1 Chronic obstructive pulmonary disease with (acute) exacerbation; E87.1 Hypo-osmolality and hyponatremia; E87.2 Acidosis; J44.0 Chronic obstructive pulmonary disease with (acute) lower respiratory infection; R65.10 Systemic inflammatory response syndrome (SIRS) of non-infectious origin without acute organ dysfunction; I42.1 Obstructive hypertrophic cardiomyopathy; N18.9 Chronic kidney disease, unspecified; I48.91 Unspecified atrial fibrillation; J84.10 Pulmonary fibrosis, unspecified; E11.22 Type 2 diabetes mellitus with diabetic chronic kidney disease; E11.65 Type 2 diabetes mellitus with hyperglycemia; M54.30 Sciatica, unspecified side; I27.20 Pulmonary hypertension, unspecified; B19.20 Unspecified viral hepatitis C without hepatic coma; D63.1 Anemia in chronic kidney disease; D72.821 Monocytosis (symptomatic); E11.319 Type 2 diabetes mellitus with unspecified diabetic retinopathy without macular edema; R04.0 Epistaxis; H54.8 Legal blindness, as defined in USA; E78.5 Hyperlipidemia, unspecified; E87.5 Hyperkalemia; R74.0 Nonspecific elevation of levels of transaminase and lactic acid dehydrogenase [LDH]; I25.10 Atherosclerotic heart disease of native coronary artery without angina pectoris; I34.0 Nonrheumatic mitral (valve) insufficiency; L93.0 Discoid lupus erythematosus; Z79.4 Long term (current) use of insulin; Z79.899 Other long term (current) drug therapy; Z87.891 Personal history of nicotine dependence; Z88.0 Allergy status to penicillin; Z99.81 Dependence on supplemental oxygen
CPT/HCPCS: 36415; 36600; 71045; 80048; 80061; 82270; 82375; 82550; 82553; 82784; 82805; 82962; 83010; 83036; 83605; 83735; 83880; 84100; 84145; 84443; 84484; 86334; 86850; 86870; 86900; 86920; 93005; 93970; 94640; 94660; 96365; 96368; 96375; 97162; 97166; 99291; C1893; J0456; J0696; J1940; J2405; J2930; J3490; J7040; J7050; J7060; J7611; J7620; J7626; P9016

== ENCOUNTER 2018-11-12 01:39 | Inpatient (IN) | payer MEDICARE, MEDICAID ==
[~2018-11-12] VITALS: Ht 149.9 cm; Wt 52.2 kg
[2018-11-12] VITALS (8 sets, daily range): BP systolic 125–142; BP diastolic 50–76
[~2018-11-12 01:39] MED LIST changes: +FURO-151 PO; -FURO40TA5 MT; +GUAI-740 MT; -PANT40TA4 MT; +PANT40TA4 PO; -POLY17PO3 MT; -TIOT18CA3 INH
[2018-11-12] MEDS ORDERED: MAGNESIUM 2 G PREMIX 50 ML IV STA (01:52)
[2018-11-12] MEDS ORDERED: METHYLPREDNISOLONE SOD SUCC 125 MG/2 ML VIAL IV STA (01:52)
[2018-11-12] MEDS ORDERED: ALBUTEROL (0.083%) 2.5MG/3ML NEB HHN STA (01:52)
[2018-11-12] MEDS ORDERED: IPRATROPIUM BROMIDE (0.02%) 0.5MG/2.5ML NEB HHN STA (01:52)
[2018-11-12 02:04] LABS: BASOPHILS % 0.2 % (0.0-2.0); HEMATOCRIT. 38.5 % (36.0-48.0); HEMOGLOBIN. 11.9 g/dL (12.0-16.0); LYMPHOCYTES % 24.2 % (20.0-50.0); MEAN CORPUSCULAR HEMOGLOBIN 28.5 pg (28.0-32.0); MEAN CORPUSCULAR VOLUME 92.1 fL (81.0-99.0); MEAN PLATELET VOLUME 8.1 fl (7.4-10.4); MONOCYTES % 9.1 % (2.0-8.0); NEUTROPHILS % 63.5 % (40.0-76.0); PLATELET 220 x1000/uL (130-400); RED BLOOD CELL COUNT 4.18 mill/uL (4.2-5.4); RED CELL DISTRIBUTION WIDTH 18.5 % (11.6-14.6)
[2018-11-12 02:09] LABS: CHLORIDE 106 mEq/L (98-107)
[2018-11-12] MEDS ORDERED: VANCOMYCIN 1 G PREMIX 200 ML IV SCH (03:15)
[2018-11-12] MEDS ORDERED: AZITHROMYCIN 500 MG in DEXT 5% WATER 250 ML IV SCH (03:15)
[2018-11-12] MEDS ORDERED: AZTREONAM 2 GM in DEXT 5% WATER 100 ML IV SCH (03:15)
[2018-11-12] MEDS ORDERED: AZTREONAM 1 G in DEXTROSE 5% WATER 50 ML IV SCH (04:00)
[2018-11-12] MEDS ORDERED: DIPHENHYDRAMINE 50MG/ML VIAL IV PRN (09:00)
[2018-11-12] MEDS ORDERED: ONDANSETRON HCL 4MG/2ML INJ IV PRN (09:00)
[2018-11-12] MEDS ORDERED: CLONIDINE 0.1MG TABLET PO PRN (09:00)
[2018-11-12] MEDS ORDERED: IPRATROPIUM/ALBUTEROL 0.5-3(2.5)MG/3ML NEB INH PRN (09:00)
[2018-11-12] MEDS ORDERED: GUAIFENESIN 200MG/10ML SUGAR FREE UDC PO PRN (09:00)
[2018-11-12] MEDS ORDERED: DOCUSATE SODIUM 100MG CAPSULE PO PRN (09:00)
[2018-11-12] MEDS ORDERED: MAGNESIUM/ALUMINUM HYDROXIDE/SIMETHICONE 30ML UDC PO PRN (09:00)
[2018-11-12] MEDS ORDERED: HYDROCODONE/ACETAMINOPHEN 5/325MG TABLET PO PRN (09:00)
[2018-11-12] MEDS ORDERED: ACETAMINOPHEN 325MG TABLET PO PRN (09:00)
[2018-11-12 09:22] LABS: PHOSPHORUS 4.6 mg/dL (2.5-4.9)
[2018-11-12] MEDS: FUROSEMIDE 40MG/4ML VIAL IVP SCH (13:33)
[2018-11-12] MEDS: VERAPAMIL HCL 40MG TABLET PO SCH ×2 (13:33→21:11)
[2018-11-12 16:49] LABS: CREATINE KINASE MB FRACTION 5.2 ng/mL (0.5-3.6)
[2018-11-12] MEDS ORDERED: NON FORMULARY PATIENT HOME MED XX SCH (17:45)
[2018-11-12 19:57] LABS: *BARBITURATES SCREEN URINE NEGATIVE (NEGATIVE); CANNABINOID URINE SCREEN NEGATIVE (NEGATIVE); PHENCYCLIDINE URINE SCREEN NEGATIVE (NEGATIVE)
[2018-11-12 19:58] LABS: *AMPHETAMINES SCREEN URINE NEGATIVE (NEGATIVE); *BENZODIAZEPINES SCREEN URINE NEGATIVE (NEGATIVE); *COCAINE SCREEN URINE NEGATIVE (NEGATIVE); METHADONE URINE SCREEN NEGATIVE (NEGATIVE); OPIATES URINE SCREEN NEGATIVE (NEGATIVE)
[2018-11-12] MEDS: ATORVASTATIN CALCIUM 10MG TABLET PO SCH (21:11)
[2018-11-13] VITALS (12 sets, daily range): BP systolic 105–151; BP diastolic 20–77
[2018-11-13] MEDS: IPRATROPIUM/ALBUTEROL 0.5-3(2.5)MG/3ML NEB HHN SCH ×6 (00:29→21:11)
[2018-11-13 02:15] LABS: CREATINE KINASE MB FRACTION 4.6 ng/mL (0.5-3.6)
[2018-11-13] MEDS: VERAPAMIL HCL 40MG TABLET PO SCH ×3 (05:55→22:00)
[2018-11-13 07:02] LABS: BASOPHILS % 0.6 % (0.0-2.0); EOSINOPHILS % 0.4 % (0.0-5.0); HEMATOCRIT. 32.4 % (36.0-48.0); HEMOGLOBIN. 10.2 g/dL (12.0-16.0); LYMPHOCYTES % 15.7 % (20.0-50.0); MEAN CORPUSCULAR HEMOGLOBIN 28.9 pg (28.0-32.0); MEAN CORPUSCULAR VOLUME 91.7 fL (81.0-99.0); MEAN PLATELET VOLUME 8.6 fl (7.4-10.4); NEUTROPHILS % 70.3 % (40.0-76.0); PLATELET 190 x1000/uL (130-400); RED BLOOD CELL COUNT 3.54 mill/uL (4.2-5.4); RED CELL DISTRIBUTION WIDTH 17.7 % (11.6-14.6)
[2018-11-13 07:21] LABS: CHLORIDE 107 mEq/L (98-107)
[2018-11-13 07:31] LABS: LDL CHOLESTEROL 115 mg/dL (5-100)
[2018-11-13 07:32] LABS: HDL CHOLESTEROL 66 mg/dL (40-59)
[2018-11-13] MEDS: LETAIRIS 5 MG PO SCH (09:02)
[2018-11-13] MEDS: FUROSEMIDE 40MG/4ML VIAL IVP SCH (09:02)
[2018-11-13] MEDS: BUDESONIDE 0.5MG/2ML NEB HHN SCH ×3 (12:05→21:19)
[2018-11-13] MEDS: POTASSIUM CHLORIDE 20MEQ TABLET SR PO SCH (13:46)
[2018-11-13] MEDS: SILDENAFIL CITRATE 20MG TABLET PO SCH ×2 (16:56→22:00)
[2018-11-13] MEDS: ATORVASTATIN CALCIUM 10MG TABLET PO SCH (20:49)
[2018-11-14] VITALS (9 sets, daily range): BP systolic 112–140; BP diastolic 51–77
[2018-11-14] MEDS: IPRATROPIUM/ALBUTEROL 0.5-3(2.5)MG/3ML NEB HHN SCH ×4 (00:41→12:07)
[2018-11-14] MEDS: VERAPAMIL HCL 40MG TABLET PO SCH ×2 (06:10→13:15)
[2018-11-14] MEDS: SILDENAFIL CITRATE 20MG TABLET PO SCH ×2 (06:12→13:40)
[2018-11-14 07:33] LABS: BASOPHILS % 1.3 % (0.0-2.0); EOSINOPHILS % 2.8 % (0.0-5.0); HEMOGLOBIN. 11.1 g/dL (12.0-16.0); LYMPHOCYTES % 17.7 % (20.0-50.0); MEAN CORPUSCULAR HEMOGLOBIN 29.2 pg (28.0-32.0); MEAN CORPUSCULAR VOLUME 91.6 fL (81.0-99.0); MEAN PLATELET VOLUME 8.4 fl (7.4-10.4); MONOCYTES % 12.3 % (2.0-8.0); NEUTROPHILS % 65.9 % (40.0-76.0); PLATELET 184 x1000/uL (130-400); RED BLOOD CELL COUNT 3.82 mill/uL (4.2-5.4); RED CELL DISTRIBUTION WIDTH 17.9 % (11.6-14.6)
[2018-11-14] MEDS: BUDESONIDE 0.5MG/2ML NEB HHN SCH (07:43)
[2018-11-14] MEDS: FUROSEMIDE 40MG/4ML VIAL IVP SCH (08:08)
[2018-11-14] MEDS: LETAIRIS 5 MG PO SCH (08:08)
[2018-11-14] MEDS: POTASSIUM CHLORIDE 20MEQ TABLET SR PO SCH (08:08)
== END 2018-11-14 15:55 | disposition home or self-care (01) | DRG 291 ==
LOC: ER 02:04 → 5EST 04:24 → EDBEDREQ 04:34 → EDBEDREQTM 04:34 → ENRESERV 05:32
PROVIDERS: ADMIT Internal Medicine; ATTEND Internal Medicine
PROC: 5A09357 Assistance with Respiratory Ventilation, Less than 24 Consecutive Hours, Continuous Positive Airway Pressure (ICD-10-PCS; principal; 2018-11-12)
PROC: 5A09357 Assistance with Respiratory Ventilation, Less than 24 Consecutive Hours, Continuous Positive Airway Pressure (ICD-10-PCS; 2018-11-14)
DX: I13.0 Hypertensive heart and chronic kidney disease with heart failure and stage 1 through stage 4 chronic kidney disease, or unspecified chronic kidney disease (principal); I50.33 Acute on chronic diastolic (congestive) heart failure; J96.20 Acute and chronic respiratory failure, unspecified whether with hypoxia or hypercapnia; J18.9 Pneumonia, unspecified organism; J44.1 Chronic obstructive pulmonary disease with (acute) exacerbation; J44.0 Chronic obstructive pulmonary disease with (acute) lower respiratory infection; I42.1 Obstructive hypertrophic cardiomyopathy; D64.9 Anemia, unspecified; N18.9 Chronic kidney disease, unspecified; B19.20 Unspecified viral hepatitis C without hepatic coma; R59.0 Localized enlarged lymph nodes; I27.20 Pulmonary hypertension, unspecified; D72.821 Monocytosis (symptomatic); E11.22 Type 2 diabetes mellitus with diabetic chronic kidney disease; E78.00 Pure hypercholesterolemia, unspecified; E78.5 Hyperlipidemia, unspecified; I34.0 Nonrheumatic mitral (valve) insufficiency; I48.91 Unspecified atrial fibrillation; M54.30 Sciatica, unspecified side; Z79.899 Other long term (current) drug therapy; Z82.49 Family history of ischemic heart disease and other diseases of the circulatory system; Z99.81 Dependence on supplemental oxygen; Z87.891 Personal history of nicotine dependence; Z79.84 Long term (current) use of oral hypoglycemic drugs; Z88.0 Allergy status to penicillin
CPT/HCPCS: 36415; 71045; 80048; 80061; 80305; 82550; 82553; 83605; 83735; 83880; 84100; 93970; 94640; 96365; 96366; 96367; 97110; 97116; 97162; 97166; 99291; J0456; J1940; J2405; J2930; J3370; J3475; J3490; J7060; J7611; J7620; J7626

== ENCOUNTER 2018-11-16 23:32 | Inpatient (IN) | payer MEDICARE, MEDICAID ==
[~2018-11-16] VITALS: Ht 149.9 cm; Wt 54.0 kg
[2018-11-16] MEDS ORDERED: ONDANSETRON HCL 4MG/2ML INJ IV STA (23:43)
[2018-11-16] MEDS ORDERED: ALBUTEROL (0.083%) 2.5MG/3ML NEB HHN STA (23:43)
[2018-11-16] MEDS ORDERED: IPRATROPIUM BROMIDE (0.02%) 0.5MG/2.5ML NEB HHN STA (23:43)
[2018-11-16] MEDS ORDERED: ASPIRIN 81MG TABLET PO ONE (23:45)
[2018-11-16 23:58] LABS: BASOPHILS % 1.2 % (0.0-2.0); EOSINOPHILS % 2.4 % (0.0-5.0); HEMOGLOBIN. 10.5 g/dL (12.0-16.0); LYMPHOCYTES % 19.6 % (20.0-50.0); MEAN CORPUSCULAR HEMOGLOBIN 28.9 pg (28.0-32.0); MEAN CORPUSCULAR VOLUME 91.3 fL (81.0-99.0); MEAN PLATELET VOLUME 8.2 fl (7.4-10.4); MONOCYTES % 8.8 % (2.0-8.0); PLATELET 175 x1000/uL (130-400); RED BLOOD CELL COUNT 3.62 mill/uL (4.2-5.4); RED CELL DISTRIBUTION WIDTH 17.3 % (11.6-14.6)
[2018-11-17 00:04] LABS: CHLORIDE 105 mEq/L (98-107)
[2018-11-17 00:05] LABS: BG BASE EXCESS -0.2 mmol/L (-2.0-2.0); BG BILEVEL POS AIRWAY PRESSURE 15/5; BG CARBOXYHEMOGLOBIN 0.6 % (0.5-1.5); BG FRACTION INSPIRED OXYGEN 50; BG HCO3 ACT 24.2 mmol/L (22.0-26.0); BG METHEMOGLOBIN 0.4 % (0.0-1.5); BG PCO2 38.8 mmHg (35.0-45.0); BG PH 7.413 (7.350-7.450); BG PO2 93.8 mmHg (75.0-100.0); BG SAMPLE SITE RIGHT RADIAL; BG VENT MODE MASK - BIPAP
[2018-11-17] MEDS ORDERED: METHYLPREDNISOLONE SOD SUCC 125 MG/2 ML VIAL IV ONE (00:45)
[2018-11-17] MEDS ORDERED: FUROSEMIDE 20MG/2ML VIAL IVP NR (01:00)
[2018-11-17 03:10] VITALS: BP 137/46
[2018-11-17] MEDS ORDERED: VERA240C2 PO (04:10)
[2018-11-17] MEDS ORDERED: UMEC1DIS IH (04:18)
[2018-11-17] MEDS ORDERED: AMLO5TAB88 PO (04:18)
[2018-11-17] MEDS ORDERED: POTA20TA82 PO (04:18)
[2018-11-17] MEDS ORDERED: ALBU18HF2 IH (04:18)
[2018-11-17] MEDS ORDERED: ATROV IH (04:18)
[2018-11-17] MEDS ORDERED: TIOT18CA3 IH (04:18)
[2018-11-17] MEDS ORDERED: IPRA3AMP31 IH (05:07)
[2018-11-17 08:00] VITALS: BP 114/57
[2018-11-17] MEDS: METHYLPREDNISOLONE SOD SUCC 40 MG/ML VIAL IV SCH ×2 (09:27→17:25)
[2018-11-17] MEDS: FUROSEMIDE 40MG/4ML VIAL IVP SCH ×2 (09:27→17:25)
[2018-11-17] MEDS: ENOXAPARIN 30MG/0.3ML SYR SUBCUT SCH (09:29)
[2018-11-17 10:44] LABS: HEMATOCRIT. 30.8 % (36.0-48.0); HEMOGLOBIN. 9.7 g/dL (12.0-16.0); MEAN CORPUSCULAR VOLUME 91.5 fL (81.0-99.0); MEAN PLATELET VOLUME 9.1 fl (7.4-10.4); PLATELET 173 x1000/uL (130-400); RED BLOOD CELL COUNT 3.36 mill/uL (4.2-5.4); RED CELL DISTRIBUTION WIDTH 16.7 % (11.6-14.6)
[2018-11-17 10:55] LABS: CHLORIDE 102 mEq/L (98-107)
[2018-11-17 11:03] LABS: CREATINE KINASE 52 IU/L (26-192)
[2018-11-17 11:06] LABS: CREATINE KINASE MB FRACTION 2.3 ng/mL (0.5-3.6)
[2018-11-17 12:00] VITALS: BP 118/49
[2018-11-17] MEDS ORDERED: CLONIDINE 0.1MG TABLET PO PRN (14:00)
[2018-11-17] MEDS ORDERED: CLONIDINE 0.2MG TABLET PO PRN (14:00)
[2018-11-17 14:27] LABS: PLATELET ESTIMATE NORMAL
[2018-11-17] MEDS: AMLODIPINE 2.5MG TABLET PO SCH ×2 (15:45→21:29)
[2018-11-17 16:00] VITALS: BP 138/52
[2018-11-17 20:01] VITALS: BP 141/53
[2018-11-17] MEDS: ATORVASTATIN CALCIUM 20MG TABLET PO SCH (21:29)
[2018-11-17] MEDS: SILDENAFIL CITRATE 20MG TABLET PO SCH (21:37)
[2018-11-18 00:06] VITALS: BP 132/47
[2018-11-18] MEDS: METHYLPREDNISOLONE SOD SUCC 40 MG/ML VIAL IV SCH ×3 (00:44→18:02)
[2018-11-18 04:15] VITALS: BP 131/54
[2018-11-18] MEDS: SILDENAFIL CITRATE 20MG TABLET PO SCH ×3 (05:52→21:48)
[2018-11-18 06:18] LABS: CHLORIDE 100 mEq/L (98-107)
[2018-11-18 06:31] LABS: LDL CHOLESTEROL 88 mg/dL (5-100)
[2018-11-18 06:32] LABS: HDL CHOLESTEROL 63 mg/dL (40-59)
[2018-11-18] MEDS: ASPIRIN 81MG EC TABLET PO SCH (09:34)
[2018-11-18] MEDS: FUROSEMIDE 40MG/4ML VIAL IVP SCH ×2 (09:34→18:02)
[2018-11-18] MEDS: AMLODIPINE 2.5MG TABLET PO SCH ×2 (09:36→20:10)
[2018-11-18] MEDS: ENOXAPARIN 30MG/0.3ML SYR SUBCUT SCH (09:38)
[2018-11-18] MEDS: LETAIRIS 5 MG PO SCH (09:39)
[2018-11-18 12:00] VITALS: BP 130/51
[2018-11-18] MEDS ORDERED: ONDANSETRON HCL 4MG/2ML INJ IV PRN (13:45)
[2018-11-18 16:00] VITALS: BP 122/50
[2018-11-18 20:00] VITALS: BP 125/52
[2018-11-18] MEDS: ATORVASTATIN CALCIUM 20MG TABLET PO SCH (20:10)
[2018-11-18] MEDS: GUAIFENESIN 600MG ER TABLET PO SCH (20:10)
[2018-11-19 00:09] VITALS: BP 118/57
[2018-11-19] MEDS: METHYLPREDNISOLONE SOD SUCC 40 MG/ML VIAL IV SCH ×2 (01:00→09:00)
[2018-11-19 04:00] VITALS: BP 124/61
[2018-11-19] MEDS: SILDENAFIL CITRATE 20MG TABLET PO SCH ×3 (05:54→22:05)
[2018-11-19 07:05] LABS: HEMATOCRIT. 28.5 % (36.0-48.0); HEMOGLOBIN. 9.2 g/dL (12.0-16.0); MEAN CORPUSCULAR HEMOGLOBIN 29.7 pg (28.0-32.0); MEAN CORPUSCULAR VOLUME 91.9 fL (81.0-99.0); MEAN PLATELET VOLUME 9.1 fl (7.4-10.4); PLATELET 186 x1000/uL (130-400); RED CELL DISTRIBUTION WIDTH 16.9 % (11.6-14.6)
[2018-11-19 08:00] VITALS: BP 130/58
[2018-11-19] MEDS: ENOXAPARIN 30MG/0.3ML SYR SUBCUT SCH (09:00)
[2018-11-19] MEDS: FUROSEMIDE 40MG/4ML VIAL IVP SCH ×2 (09:00→18:48)
[2018-11-19] MEDS: LETAIRIS 5 MG PO SCH (09:00)
[2018-11-19] MEDS: ASPIRIN 81MG EC TABLET PO SCH (09:00)
[2018-11-19 11:17] LABS: PLATELET ESTIMATE NORMAL
[2018-11-19] MEDS: AMLODIPINE 2.5MG TABLET PO SCH ×2 (11:28→20:39)
[2018-11-19] MEDS: GUAIFENESIN 600MG ER TABLET PO SCH ×2 (11:28→20:39)
[2018-11-19 12:00] VITALS: BP 139/61
[2018-11-19 16:00] VITALS: BP 113/43
[2018-11-19 20:39] VITALS: BP 127/52
[2018-11-19] MEDS: ATORVASTATIN CALCIUM 20MG TABLET PO SCH (20:39)
[2018-11-20] VITALS: BP 109/48
[2018-11-20 04:00] VITALS: BP 120/55
[2018-11-20] MEDS: SILDENAFIL CITRATE 20MG TABLET PO SCH ×3 (05:48→21:25)
[2018-11-20 06:47] LABS: BASOPHILS % 0.3 % (0.0-2.0); EOSINOPHILS % 0.3 % (0.0-5.0); HEMOGLOBIN. 9.3 g/dL (12.0-16.0); MEAN CORPUSCULAR HEMOGLOBIN 29.4 pg (28.0-32.0); MEAN CORPUSCULAR VOLUME 91.6 fL (81.0-99.0); MEAN PLATELET VOLUME 8.8 fl (7.4-10.4); MONOCYTES % 13.2 % (2.0-8.0); NEUTROPHILS % 69.2 % (40.0-76.0); PLATELET 181 x1000/uL (130-400); RED BLOOD CELL COUNT 3.17 mill/uL (4.2-5.4); RED CELL DISTRIBUTION WIDTH 16.5 % (11.6-14.6)
[2018-11-20 08:00] VITALS: BP 135/52
[2018-11-20] MEDS: ENOXAPARIN 30MG/0.3ML SYR SUBCUT SCH (08:58)
[2018-11-20] MEDS: ASPIRIN 81MG EC TABLET PO SCH (08:58)
[2018-11-20] MEDS: FUROSEMIDE 40MG/4ML VIAL IVP SCH ×2 (08:59→17:05)
[2018-11-20] MEDS: GUAIFENESIN 600MG ER TABLET PO SCH (08:59)
[2018-11-20] MEDS: AMLODIPINE 2.5MG TABLET PO SCH ×2 (08:59→20:44)
[2018-11-20] MEDS: LETAIRIS 5 MG PO SCH (08:59)
[2018-11-20] MEDS: PREDNISONE 20MG TABLET PO SCH (09:05)
[2018-11-20 12:00] VITALS: BP 121/49
[2018-11-20] MEDS ORDERED: GUAIFENESIN-DM 200MG-20MG/10ML UDC PO PRN (12:45)
[2018-11-20 16:00] VITALS: BP 137/47
[2018-11-20] MEDS ORDERED: MED4 MT (18:23)
[2018-11-20] MEDS ORDERED: ASPI-1158 PO (18:23)
[2018-11-20 20:00] VITALS: BP 125/43
[2018-11-20] MEDS: ATORVASTATIN CALCIUM 20MG TABLET PO SCH (20:44)
[2018-11-21] VITALS: BP 114/37
[2018-11-21 04:00] VITALS: BP 126/44
[2018-11-21] MEDS: SILDENAFIL CITRATE 20MG TABLET PO SCH (06:20)
[2018-11-21 07:54] VITALS: BP 130/45
[2018-11-21 07:59] VITALS: BP 130/45
[2018-11-21] MEDS: FUROSEMIDE 40MG/4ML VIAL IVP SCH (08:47)
[2018-11-21] MEDS: ENOXAPARIN 30MG/0.3ML SYR SUBCUT SCH (08:49)
[2018-11-21] MEDS: LETAIRIS 5 MG PO SCH (08:50)
[2018-11-21] MEDS: ASPIRIN 81MG EC TABLET PO SCH (08:50)
[2018-11-21] MEDS: AMLODIPINE 2.5MG TABLET PO SCH (08:50)
[2018-11-21] MEDS: PREDNISONE 20MG TABLET PO SCH (08:51)
[2018-11-21 12:11] VITALS: BP 113/59
[2018-11-21 15:53] VITALS: BP 119/50
== END 2018-11-21 16:32 | disposition home or self-care (01) | DRG 291 ==
LOC: ER 23:32 → EDBEDREQDT 11-17 00:53 → EDBEDREQTM 11-17 00:53 → EDBEDREQ 11-17 00:53 → ENRESERV 11-17 01:32 → 6WST 11-17 02:59
PROVIDERS: ADMIT Internal Medicine; ATTEND Internal Medicine
PROC: 5A09357 Assistance with Respiratory Ventilation, Less than 24 Consecutive Hours, Continuous Positive Airway Pressure (ICD-10-PCS; 2018-11-16)
PROC: 5A09357 Assistance with Respiratory Ventilation, Less than 24 Consecutive Hours, Continuous Positive Airway Pressure (ICD-10-PCS; principal; 2018-11-17)
DX: I13.0 Hypertensive heart and chronic kidney disease with heart failure and stage 1 through stage 4 chronic kidney disease, or unspecified chronic kidney disease (principal); I50.33 Acute on chronic diastolic (congestive) heart failure; J96.20 Acute and chronic respiratory failure, unspecified whether with hypoxia or hypercapnia; J44.1 Chronic obstructive pulmonary disease with (acute) exacerbation; I47.1 Supraventricular tachycardia; J84.9 Interstitial pulmonary disease, unspecified; I42.1 Obstructive hypertrophic cardiomyopathy; I27.20 Pulmonary hypertension, unspecified; M54.30 Sciatica, unspecified side; N18.9 Chronic kidney disease, unspecified; E11.22 Type 2 diabetes mellitus with diabetic chronic kidney disease; I05.2 Rheumatic mitral stenosis with insufficiency; E07.9 Disorder of thyroid, unspecified; D64.9 Anemia, unspecified; K42.9 Umbilical hernia without obstruction or gangrene; B19.20 Unspecified viral hepatitis C without hepatic coma; E78.00 Pure hypercholesterolemia, unspecified; I48.91 Unspecified atrial fibrillation; K80.20 Calculus of gallbladder without cholecystitis without obstruction; R59.0 Localized enlarged lymph nodes; Z79.899 Other long term (current) drug therapy; Z87.891 Personal history of nicotine dependence; Z99.81 Dependence on supplemental oxygen; Z88.0 Allergy status to penicillin; Z79.84 Long term (current) use of oral hypoglycemic drugs
CPT/HCPCS: 36415; 36600; 71045; 76700; 80048; 80061; 82375; 82550; 82553; 82805; 83735; 83880; 84484; 85379; 93005; 93970; 96374; 99285; J1650; J1940; J2405; J2920; J2930; J7512; J7611

== ENCOUNTER 2018-11-22 22:10 | Inpatient (IN) | payer MEDICARE, MEDICAID ==
[~2018-11-22] VITALS: Ht 165.1 cm; Wt 51.3 kg
[~2018-11-22 22:10] MED LIST changes: +ALBU18HF2 IH; +AMLO5TAB88 PO; +ASPI-1158 PO; +ATROV IH; +IPRA3AMP31 IH; +MED4 MT; +POTA20TA82 PO; +TIOT18CA3 IH; +UMEC1DIS IH; -VERA80TA2 PO
[2018-11-22] MEDS ORDERED: ALBUTEROL (0.083%) 2.5MG/3ML NEB HHN STA (22:21)
[2018-11-22] MEDS ORDERED: METHYLPREDNISOLONE SOD SUCC 125 MG/2 ML VIAL IV STA (22:21)
[2018-11-22] MEDS ORDERED: IPRATROPIUM BROMIDE (0.02%) 0.5MG/2.5ML NEB HHN STA (22:21)
[2018-11-22] MEDS ORDERED: MAGNESIUM 2 G PREMIX 50 ML IV ONE (22:30)
[2018-11-22] MEDS ORDERED: FUROSEMIDE 40MG/4ML VIAL IV ONE (22:30)
[2018-11-22] MEDS: NITROGLYCERIN 0.4MG TABLET SL SL PRN ×2 (23:04→23:11)
[2018-11-22 23:16] LABS: BASOPHILS % 0.5 % (0.0-2.0); EOSINOPHILS % 1.3 % (0.0-5.0); HEMATOCRIT. 31.2 % (36.0-48.0); HEMOGLOBIN. 9.9 g/dL (12.0-16.0); LYMPHOCYTES % 16.1 % (20.0-50.0); MEAN CORPUSCULAR HEMOGLOBIN 28.9 pg (28.0-32.0); MEAN CORPUSCULAR VOLUME 91.1 fL (81.0-99.0); MEAN PLATELET VOLUME 8.8 fl (7.4-10.4); MONOCYTES % 10.7 % (2.0-8.0); NEUTROPHILS % 71.4 % (40.0-76.0); PLATELET 216 x1000/uL (130-400); RED BLOOD CELL COUNT 3.42 mill/uL (4.2-5.4); RED CELL DISTRIBUTION WIDTH 16.7 % (11.6-14.6)
[2018-11-22 23:17] LABS: CHLORIDE 101 mEq/L (98-107)
[2018-11-22 23:21] LABS: PARTIAL THROMBOPLASTIN TIME 22.5 sec (23.4-31.0); PROTHROMBIN TIME 10.1 sec (9.6-11.0)
[2018-11-22] MEDS ORDERED: ASPIRIN 325MG TABLET PO SCH (23:45)
[2018-11-23] VITALS (12 sets, daily range): BP systolic 121–157; BP diastolic 55–90
[2018-11-23] MEDS ORDERED: MAGNESIUM/ALUMINUM HYDROXIDE/SIMETHICONE 30ML UDC PO PRN (00:45)
[2018-11-23] MEDS ORDERED: CLONIDINE 0.1MG TABLET PO PRN (00:45)
[2018-11-23] MEDS ORDERED: IPRATROPIUM/ALBUTEROL 0.5-3(2.5)MG/3ML NEB INH PRN (00:45)
[2018-11-23] MEDS ORDERED: NA PHOS,M-B/NA PHOS,DI-BA ENEMA 118ML PR PRN (00:45)
[2018-11-23] MEDS ORDERED: HYDROCODONE/ACETAMINOPHEN 5/325MG TABLET PO PRN (00:45)
[2018-11-23] MEDS ORDERED: ACETAMINOPHEN 650MG/20.3ML UDC GT PRN (00:45)
[2018-11-23] MEDS ORDERED: DIPHENHYDRAMINE 50MG/ML VIAL IV PRN (00:45)
[2018-11-23] MEDS ORDERED: ACETAMINOPHEN 325MG TABLET PO PRN (00:45)
[2018-11-23] MEDS ORDERED: ONDANSETRON HCL 4MG/2ML INJ IV PRN (00:45)
[2018-11-23] MEDS ORDERED: ACETAMINOPHEN 650MG SUPP PR PRN (00:45)
[2018-11-23] MEDS ORDERED: DOCUSATE SODIUM 100MG CAPSULE PO PRN (00:45)
[2018-11-23] MEDS ORDERED: GUAIFENESIN 200MG/10ML SUGAR FREE UDC PO PRN (00:45)
[2018-11-23] MEDS ORDERED: ENOXAPARIN 60MG/0.6ML SYR SUBCUT SCH (01:00)
[2018-11-23] MEDS: SODIUM CHLORIDE 0.9% INJ 3ML FLUSH IVF SCH ×3 (05:15→21:38)
[2018-11-23] MEDS: FUROSEMIDE 40MG/4ML VIAL IV SCH (08:39)
[2018-11-23 09:31] LABS: CREATINE KINASE MB FRACTION 2.9 ng/mL (0.5-3.6)
[2018-11-23] MEDS ORDERED: NON FORMULARY PATIENT HOME MED XX SCH (14:15)
[2018-11-23] MEDS ORDERED: BUDESONIDE 0.5MG/2ML NEB HHN SCH (14:30)
[2018-11-23] MEDS ORDERED: MEDICATION NOT ON FORMULARY EA (Docusate Sodium (Colace) 100 MG) PO SCH (14:45)
[2018-11-23] MEDS ORDERED: MEDICATION NOT ON FORMULARY EA (Aspirin (Aspirin Ec) 81 MG) PO SCH (14:45)
[2018-11-23] MEDS ORDERED: MEDICATION NOT ON FORMULARY EA (Ambrisentan (Letairis) 5 MG) PO SCH (14:45)
[2018-11-23 16:10] LABS: CREATINE KINASE MB FRACTION 2.8 ng/mL (0.5-3.6)
[2018-11-23] MEDS: ASPIRIN 81MG EC TABLET PO SCH (16:16)
[2018-11-23] MEDS: SILDENAFIL CITRATE 20MG TABLET PO SCH ×2 (16:16→21:37)
[2018-11-23] MEDS: DOCUSATE SODIUM 100MG CAPSULE PO SCH ×2 (16:16→22:55)
[2018-11-23] MEDS: IPRATROPIUM/ALBUTEROL 0.5-3(2.5)MG/3ML NEB HHN SCH (20:28)
[2018-11-23] MEDS ORDERED: ATORVASTATIN CALCIUM 20MG TABLET PO SCH (21:00)
[2018-11-23] MEDS ORDERED: ENOXAPARIN 30MG/0.3ML SYR SUBCUT SCH (21:00)
[2018-11-24] VITALS (8 sets, daily range): BP systolic 117–144; BP diastolic 54–70
[2018-11-24] MEDS: IPRATROPIUM/ALBUTEROL 0.5-3(2.5)MG/3ML NEB HHN SCH (02:13)
[2018-11-24] MEDS: SODIUM CHLORIDE 0.9% INJ 3ML FLUSH IVF SCH ×2 (06:08→14:06)
[2018-11-24] MEDS: SILDENAFIL CITRATE 20MG TABLET PO SCH ×2 (06:08→14:05)
[2018-11-24 06:40] LABS: BASOPHILS % 0.3 % (0.0-2.0); EOSINOPHILS % 0.3 % (0.0-5.0); HEMATOCRIT. 28.1 % (36.0-48.0); HEMOGLOBIN. 9.1 g/dL (12.0-16.0); MEAN CORPUSCULAR VOLUME 89.6 fL (81.0-99.0); MONOCYTES % 10.1 % (2.0-8.0); NEUTROPHILS % 76.3 % (40.0-76.0); PLATELET 198 x1000/uL (130-400); RED BLOOD CELL COUNT 3.14 mill/uL (4.2-5.4); RED CELL DISTRIBUTION WIDTH 16.1 % (11.6-14.6)
[2018-11-24 06:58] LABS: CHLORIDE 100 mEq/L (98-107)
[2018-11-24 07:06] LABS: LDL CHOLESTEROL 74 mg/dL (5-100)
[2018-11-24 07:07] LABS: HDL CHOLESTEROL 80 mg/dL (40-59)
[2018-11-24] MEDS: FUROSEMIDE 40MG/4ML VIAL IV SCH (08:00)
[2018-11-24] MEDS: DOCUSATE SODIUM 100MG CAPSULE PO SCH (08:24)
[2018-11-24] MEDS: ASPIRIN 81MG EC TABLET PO SCH (08:24)
[2018-11-24] MEDS ORDERED: VERAPAMIL HCL 40MG TABLET PO SCH (14:00)
[2018-11-24] MEDS ORDERED: ENOXAPARIN 40MG/0.4ML SYR SUBCUT SCH (21:00)
== END 2018-11-24 16:30 | disposition home or self-care (01) | DRG 291 ==
LOC: ER 22:10 → EDBEDREQTM 23:45 → EDBEDREQSVC 23:45 → EDBEDREQ 23:45 → ENRESERV 23:54 → 3WST 11-23 00:15 → EDBEDREQ 11-23 00:16 → EDBEDREQTM 11-23 00:16
PROVIDERS: ADMIT Family Medicine; ATTEND Family Medicine
PROC: 5A09357 Assistance with Respiratory Ventilation, Less than 24 Consecutive Hours, Continuous Positive Airway Pressure (ICD-10-PCS; principal; 2018-11-22)
PROC: 5A09357 Assistance with Respiratory Ventilation, Less than 24 Consecutive Hours, Continuous Positive Airway Pressure (ICD-10-PCS; 2018-11-23)
DX: I13.0 Hypertensive heart and chronic kidney disease with heart failure and stage 1 through stage 4 chronic kidney disease, or unspecified chronic kidney disease (principal); J96.20 Acute and chronic respiratory failure, unspecified whether with hypoxia or hypercapnia; I50.33 Acute on chronic diastolic (congestive) heart failure; J84.9 Interstitial pulmonary disease, unspecified; J44.1 Chronic obstructive pulmonary disease with (acute) exacerbation; I47.1 Supraventricular tachycardia; I42.1 Obstructive hypertrophic cardiomyopathy; I27.20 Pulmonary hypertension, unspecified; I48.0 Paroxysmal atrial fibrillation; K80.20 Calculus of gallbladder without cholecystitis without obstruction; N18.2 Chronic kidney disease, stage 2 (mild); E11.22 Type 2 diabetes mellitus with diabetic chronic kidney disease; D63.8 Anemia in other chronic diseases classified elsewhere; I34.0 Nonrheumatic mitral (valve) insufficiency; E78.5 Hyperlipidemia, unspecified; M54.30 Sciatica, unspecified side; E07.9 Disorder of thyroid, unspecified; R59.0 Localized enlarged lymph nodes; K46.9 Unspecified abdominal hernia without obstruction or gangrene; Z87.891 Personal history of nicotine dependence; Z88.0 Allergy status to penicillin; Z79.82 Long term (current) use of aspirin; Z79.899 Other long term (current) drug therapy
CPT/HCPCS: 36415; 71045; 76770; 80061; 82550; 82553; 83605; 83880; 84484; 93005; 93306; 94660; 96374; 99285; J1650; J1940; J2930; J3475; J7611; J7620; J7626

== ENCOUNTER 2018-11-26 21:59 | Inpatient (IN) | payer MEDICARE, MEDICAID ==
[~2018-11-26] VITALS: Ht 165.1 cm; Wt 51.3 kg
[~2018-11-26 21:59] MED LIST changes: -ATROV IH; -MED4 MT; -POTA20TA82 PO
[2018-11-26] MEDS ORDERED: ONDANSETRON HCL 4MG/2ML INJ IV STA (22:07)
[2018-11-26] MEDS ORDERED: ALBUTEROL (0.083%) 2.5MG/3ML NEB HHN STA (22:07)
[2018-11-26] MEDS ORDERED: IPRATROPIUM BROMIDE (0.02%) 0.5MG/2.5ML NEB HHN STA (22:07)
[2018-11-26] MEDS ORDERED: ALBUTEROL (0.5%) 2.5MG/0.5ML NEB HHN ONE (22:12)
[2018-11-26] MEDS ORDERED: IPRATROPIUM BROMIDE (0.02%) 0.5MG/2.5ML NEB ONE (22:13)
[2018-11-26] MEDS ORDERED: LORAZEPAM 2MG/ML CPJ IV ONE (22:15)
[2018-11-26] MEDS ORDERED: ASPIRIN 81MG TABLET PO ONE ×2 (22:15→23:30)
[2018-11-26] MEDS ORDERED: METHYLPREDNISOLONE SOD SUCC 125 MG/2 ML VIAL IV ONE (22:15)
[2018-11-26 22:41] LABS: HEMATOCRIT. 26.2 % (36.0-48.0); HEMOGLOBIN. 8.3 g/dL (12.0-16.0); MEAN CORPUSCULAR HEMOGLOBIN 29.2 pg (28.0-32.0); MEAN CORPUSCULAR VOLUME 91.9 fL (81.0-99.0); MEAN PLATELET VOLUME 8.9 fl (7.4-10.4); PLATELET 185 x1000/uL (130-400); RED BLOOD CELL COUNT 2.85 mill/uL (4.2-5.4); RED CELL DISTRIBUTION WIDTH 16.8 % (11.6-14.6)
[2018-11-26 22:45] LABS: CHLORIDE 100 mEq/L (98-107)
[2018-11-26 23:01] LABS: PLATELET ESTIMATE NORMAL
[2018-11-26 23:27] LABS: BG BASE EXCESS -2.8 mmol/L (-2.0-2.0); BG BILEVEL POS AIRWAY PRESSURE 15/5; BG CARBOXYHEMOGLOBIN 0.7 % (0.5-1.5); BG DEOXYHEMOGLOBIN 12.2 % (0.0-5.0); BG FRACTION INSPIRED OXYGEN 30; BG HCO3 ACT 21.5 mmol/L (22.0-26.0); BG METHEMOGLOBIN 0.2 % (0.0-1.5); BG OXYGEN SATURATION 87.7 % (92.0-98.5); BG OXYHEMOGLOBIN 86.9 % (94.0-97.0); BG PCO2 35.2 mmHg (35.0-45.0); BG PH 7.403 (7.350-7.450); BG PO2 58.2 mmHg (75.0-100.0); BG SAMPLE SITE RIGHT RADIAL; BG TOTAL HEMOGLOBIN 10.1 g/dL (12.0-18.0); BG VENT MODE MASK - BIPAP; BG VENT RATE 14 set
[2018-11-27] VITALS (10 sets, daily range): BP systolic 102–153; BP diastolic 44–80
[2018-11-27] MEDS ORDERED: LABETALOL 5MG/ML SYR 20 MG/4 ML SYRINGE IV NR (00:15)
[2018-11-27] MEDS ORDERED: AMBR5TAB3 PO (05:08)
[2018-11-27] MEDS ORDERED: AZIT250T12 PO (05:08)
[2018-11-27] MEDS ORDERED: FERR300S PO (05:08)
[2018-11-27] MEDS ORDERED: VERA80TA2 MT (05:08)
[2018-11-27] MEDS ORDERED: UMEC1DIS IH (05:08)
[2018-11-27] MEDS ORDERED: SILD20TA PO (05:08)
[2018-11-27] MEDS ORDERED: POTA20TA82 PO (05:08)
[2018-11-27] MEDS ORDERED: P50 PO (05:08)
[2018-11-27] MEDS ORDERED: GUAIFENESIN 200MG/10ML SUGAR FREE UDC PO PRN (08:45)
[2018-11-27] MEDS ORDERED: DIPHENHYDRAMINE 50MG/ML VIAL IV PRN (08:45)
[2018-11-27] MEDS ORDERED: IPRATROPIUM/ALBUTEROL 0.5-3(2.5)MG/3ML NEB INH PRN (08:45)
[2018-11-27] MEDS ORDERED: HYDROCODONE/ACETAMINOPHEN 5/325MG TABLET PO PRN (08:45)
[2018-11-27] MEDS ORDERED: MAGNESIUM/ALUMINUM HYDROXIDE/SIMETHICONE 30ML UDC PO PRN (08:45)
[2018-11-27] MEDS ORDERED: ACETAMINOPHEN 325MG TABLET PO PRN (08:45)
[2018-11-27] MEDS ORDERED: DOCUSATE SODIUM 100MG CAPSULE PO PRN (08:45)
[2018-11-27] MEDS ORDERED: CLONIDINE 0.1MG TABLET PO PRN (08:45)
[2018-11-27] MEDS ORDERED: ONDANSETRON HCL 4MG/2ML INJ IV PRN (08:45)
[2018-11-27 09:18] LABS: BG BASE EXCESS 0.6 mmol/L (-2.0-2.0); BG BILEVEL POS AIRWAY PRESSURE 15/5; BG CARBOXYHEMOGLOBIN 0.3 % (0.5-1.5); BG DEOXYHEMOGLOBIN 0.9 % (0.0-5.0); BG FRACTION INSPIRED OXYGEN 45; BG HCO3 ACT 24.3 mmol/L (22.0-26.0); BG METHEMOGLOBIN 0.3 % (0.0-1.5); BG OXYGEN SATURATION 99.1 % (92.0-98.5); BG OXYHEMOGLOBIN 98.5 % (94.0-97.0); BG PH 7.459 (7.350-7.450); BG PO2 154.2 mmHg (75.0-100.0); BG SAMPLE SITE RIGHT BRACHIAL; BG TOTAL HEMOGLOBIN 8.2 g/dL (12.0-18.0); BG VENT MODE MASK - BIPAP; BG VENT RATE 14 set
[2018-11-27 09:22] LABS: PHOSPHORUS 4.4 mg/dL (2.5-4.9)
[2018-11-27 09:53] LABS: CLARITY URINE CLEAR (CLEAR); COLOR URINE YELLOW (YELLOW); KETONES URINE NEGATIVE (NEGATIVE); LEUKOCYTE ESTERASE URINE NEGATIVE (NEGATIVE); NITRITE URINE NEGATIVE (NEGATIVE); OCCULT BLOOD URINE NEGATIVE (NEGATIVE); PH URINE 5.5 (4.5-8.0); PROTEIN URINE NEGATIVE (NEGATIVE); UROBILINOGEN URINE 0.2 E.U./dL (0.2-1.0)
[2018-11-27] MEDS: ENOXAPARIN 30MG/0.3ML SYR SUBCUT SCH (10:30)
[2018-11-27] MEDS: FUROSEMIDE 40MG/4ML VIAL IVP SCH ×2 (11:06→16:25)
[2018-11-27] MEDS: SILDENAFIL CITRATE 20MG TABLET PO SCH ×2 (14:08→21:27)
[2018-11-27] MEDS: VERAPAMIL HCL 40MG TABLET PO SCH ×2 (14:08→21:27)
[2018-11-27 15:30] LABS: CREATINE KINASE MB FRACTION 3.1 ng/mL (0.5-3.6)
[2018-11-27] MEDS: IPRATROPIUM BROMIDE (0.02%) 0.5MG/2.5ML NEB HHN SCH (21:11)
[2018-11-27] MEDS: BUDESONIDE 0.5MG/2ML NEB HHN SCH (21:12)
[2018-11-28] VITALS (7 sets, daily range): BP systolic 103–151; BP diastolic 50–62
[2018-11-28 00:03] LABS: CREATINE KINASE MB FRACTION 3.2 ng/mL (0.5-3.6)
[2018-11-28] MEDS: IPRATROPIUM BROMIDE (0.02%) 0.5MG/2.5ML NEB HHN SCH ×3 (00:46→09:11)
[2018-11-28] MEDS: VERAPAMIL HCL 40MG TABLET PO SCH (06:01)
[2018-11-28] MEDS: SILDENAFIL CITRATE 20MG TABLET PO SCH (06:02)
[2018-11-28 06:59] LABS: BASOPHILS % 0.2 % (0.0-2.0); EOSINOPHILS % 0.6 % (0.0-5.0); HEMATOCRIT. 24.3 % (36.0-48.0); HEMOGLOBIN. 7.7 g/dL (12.0-16.0); MEAN CORPUSCULAR HEMOGLOBIN 29.5 pg (28.0-32.0); MEAN CORPUSCULAR VOLUME 93.4 fL (81.0-99.0); MEAN PLATELET VOLUME 9.1 fl (7.4-10.4); MONOCYTES % 9.5 % (2.0-8.0); NEUTROPHILS % 76.7 % (40.0-76.0); PLATELET 194 x1000/uL (130-400); RED CELL DISTRIBUTION WIDTH 16.9 % (11.6-14.6)
[2018-11-28 08:54] LABS: CHLORIDE 101 mEq/L (98-107)
[2018-11-28] MEDS ORDERED: LETAIRIS 5 MG PO SCH (09:00)
[2018-11-28 09:03] LABS: LDL CHOLESTEROL 84 mg/dL (5-100)
[2018-11-28 09:04] LABS: HDL CHOLESTEROL 75 mg/dL (40-59)
[2018-11-28] MEDS: BUDESONIDE 0.5MG/2ML NEB HHN SCH (09:11)
[2018-11-28] MEDS: FUROSEMIDE 40MG/4ML VIAL IVP SCH (09:58)
[2018-11-28] MEDS: ENOXAPARIN 30MG/0.3ML SYR SUBCUT SCH (10:00)
== END 2018-11-28 12:15 | disposition home or self-care (01) | DRG 291 ==
LOC: ER 21:59 → 3WST 23:30 → EDBEDREQ 23:45 → EDBEDREQSVC 23:45 → EDBEDREQTM 23:45 → ENRESERV 11-27 02:53
PROVIDERS: ADMIT Internal Medicine; ATTEND Internal Medicine
PROC: 5A09357 Assistance with Respiratory Ventilation, Less than 24 Consecutive Hours, Continuous Positive Airway Pressure (ICD-10-PCS; principal; 2018-11-26)
PROC: 5A09357 Assistance with Respiratory Ventilation, Less than 24 Consecutive Hours, Continuous Positive Airway Pressure (ICD-10-PCS; 2018-11-27)
DX: I13.0 Hypertensive heart and chronic kidney disease with heart failure and stage 1 through stage 4 chronic kidney disease, or unspecified chronic kidney disease (principal); J96.20 Acute and chronic respiratory failure, unspecified whether with hypoxia or hypercapnia; I50.33 Acute on chronic diastolic (congestive) heart failure; J44.1 Chronic obstructive pulmonary disease with (acute) exacerbation; J84.9 Interstitial pulmonary disease, unspecified; I47.1 Supraventricular tachycardia; I42.1 Obstructive hypertrophic cardiomyopathy; I27.20 Pulmonary hypertension, unspecified; N18.9 Chronic kidney disease, unspecified; D64.9 Anemia, unspecified; E07.9 Disorder of thyroid, unspecified; E11.22 Type 2 diabetes mellitus with diabetic chronic kidney disease; E78.00 Pure hypercholesterolemia, unspecified; I05.2 Rheumatic mitral stenosis with insufficiency; E78.5 Hyperlipidemia, unspecified; F41.9 Anxiety disorder, unspecified; M54.30 Sciatica, unspecified side; B19.20 Unspecified viral hepatitis C without hepatic coma; K80.20 Calculus of gallbladder without cholecystitis without obstruction; Z60.2 Problems related to living alone; I48.2 Chronic atrial fibrillation; K46.9 Unspecified abdominal hernia without obstruction or gangrene; Z99.81 Dependence on supplemental oxygen; Z87.891 Personal history of nicotine dependence; Z88.0 Allergy status to penicillin; Z79.899 Other long term (current) drug therapy; Z79.82 Long term (current) use of aspirin
CPT/HCPCS: 36415; 36600; 71045; 80048; 80061; 82375; 82550; 82553; 82805; 83735; 83880; 84100; 84443; 84484; 93005; 93970; 94640; 97162; 99291; J1650; J1940; J2060; J2405; J2930; J7611; J7626

== ENCOUNTER 2018-12-07 18:01 | Inpatient (IN) | payer MEDICARE, MEDICAID ==
[~2018-12-07] VITALS: Ht 149.9 cm; Wt 50.0 kg
[~2018-12-07 18:01] MED LIST changes: +AZIT250T12 PO; +FERR300S PO; +POTA20TA82 PO; +SILD20TA PO; +VERA80TA2 MT
[2018-12-07 19:06] LABS: BG BASE EXCESS -3.6 mmol/L (-2.0-2.0); BG BILEVEL POS AIRWAY PRESSURE 16/5; BG CARBOXYHEMOGLOBIN 0.8 % (0.5-1.5); BG DEOXYHEMOGLOBIN 0.3 % (0.0-5.0); BG FRACTION INSPIRED OXYGEN 100; BG HCO3 ACT 20.4 mmol/L (22.0-26.0); BG METHEMOGLOBIN 0.5 % (0.0-1.5); BG OXYGEN SATURATION 99.7 % (92.0-98.5); BG OXYHEMOGLOBIN 98.4 % (94.0-97.0); BG PCO2 32.9 mmHg (35.0-45.0); BG PH 7.411 (7.350-7.450); BG PO2 401.4 mmHg (75.0-100.0); BG SAMPLE SITE RIGHT BRACHIAL; BG TOTAL HEMOGLOBIN 9.5 g/dL (12.0-18.0); BG VENT MODE MASK - BIPAP; BG VENT RATE 16 set
[2018-12-07 19:13] LABS: BASOPHILS % 0.9 % (0.0-2.0); EOSINOPHILS % 1.2 % (0.0-5.0); HEMATOCRIT. 26.1 % (36.0-48.0); HEMOGLOBIN. 8.3 g/dL (12.0-16.0); LYMPHOCYTES % 15.3 % (20.0-50.0); MEAN CORPUSCULAR HEMOGLOBIN 29.9 pg (28.0-32.0); MEAN CORPUSCULAR VOLUME 94.2 fL (81.0-99.0); MEAN PLATELET VOLUME 8.7 fl (7.4-10.4); MONOCYTES % 10.3 % (2.0-8.0); NEUTROPHILS % 72.3 % (40.0-76.0); PLATELET 171 x1000/uL (130-400); RED BLOOD CELL COUNT 2.77 mill/uL (4.2-5.4); RED CELL DISTRIBUTION WIDTH 17.3 % (11.6-14.6)
[2018-12-07] MEDS ORDERED: FUROSEMIDE 40MG/4ML VIAL IVP NR (19:15)
[2018-12-07 19:20] LABS: PROTHROMBIN TIME 10.1 sec (9.6-11.0)
[2018-12-07 19:27] LABS: CHLORIDE 108 mEq/L (98-107)
[2018-12-07 19:53] VITALS: BP 154/47
[2018-12-07] MEDS ORDERED: ASPIRIN 81MG TABLET PO ONE (20:00)
[2018-12-07 21:53] VITALS: BP 154/47
[2018-12-07 22:00] VITALS: BP 122/53
[2018-12-07 23:00] VITALS: BP 131/56
[2018-12-07] MEDS ORDERED: HYDROCODONE/ACETAMINOPHEN 5/325MG TABLET PO PRN (23:00)
[2018-12-07] MEDS ORDERED: DOCUSATE SODIUM 100MG CAPSULE PO PRN (23:00)
[2018-12-07] MEDS ORDERED: CLONIDINE 0.1MG TABLET PO PRN (23:00)
[2018-12-07] MEDS ORDERED: ACETAMINOPHEN 325MG TABLET PO PRN (23:00)
[2018-12-07] MEDS ORDERED: ONDANSETRON HCL 4MG/2ML INJ IV PRN (23:00)
[2018-12-07] MEDS ORDERED: IPRATROPIUM/ALBUTEROL 0.5-3(2.5)MG/3ML NEB INH PRN (23:00)
[2018-12-07] MEDS ORDERED: MAGNESIUM/ALUMINUM HYDROXIDE/SIMETHICONE 30ML UDC PO PRN (23:00)
[2018-12-08] VITALS (12 sets, daily range): BP systolic 103–141; BP diastolic 43–68
[2018-12-08 00:26] LABS: CLARITY URINE CLEAR (CLEAR); COLOR URINE YELLOW (YELLOW); KETONES URINE NEGATIVE (NEGATIVE); LEUKOCYTE ESTERASE URINE NEGATIVE (NEGATIVE); NITRITE URINE NEGATIVE (NEGATIVE); OCCULT BLOOD URINE NEGATIVE (NEGATIVE); PROTEIN URINE NEGATIVE (NEGATIVE); SPECIFIC GRAVITY URINE 1.007 (1.005-1.030); UROBILINOGEN URINE 0.2 E.U./dL (0.2-1.0)
[2018-12-08 00:36] LABS: *AMPHETAMINES SCREEN URINE NEGATIVE (NEGATIVE); *BARBITURATES SCREEN URINE NEGATIVE (NEGATIVE); *BENZODIAZEPINES SCREEN URINE NEGATIVE (NEGATIVE); *COCAINE SCREEN URINE NEGATIVE (NEGATIVE)
[2018-12-08 00:37] LABS: CANNABINOID URINE SCREEN NEGATIVE (NEGATIVE); METHADONE URINE SCREEN NEGATIVE (NEGATIVE); OPIATES URINE SCREEN NEGATIVE (NEGATIVE); PHENCYCLIDINE URINE SCREEN NEGATIVE (NEGATIVE)
[2018-12-08] MEDS: BUDESONIDE 0.5MG/2ML NEB HHN SCH ×3 (01:21→20:20)
[2018-12-08 06:15] LABS: CREATINE KINASE MB FRACTION 1.7 ng/mL (0.5-3.6)
[2018-12-08 06:31] LABS: BASOPHILS % 0.5 % (0.0-2.0); EOSINOPHILS % 3.5 % (0.0-5.0); HEMATOCRIT. 26.4 % (36.0-48.0); HEMOGLOBIN. 8.5 g/dL (12.0-16.0); LYMPHOCYTES % 21.9 % (20.0-50.0); MEAN CORPUSCULAR VOLUME 93.4 fL (81.0-99.0); MEAN PLATELET VOLUME 8.8 fl (7.4-10.4); MONOCYTES % 9.8 % (2.0-8.0); NEUTROPHILS % 64.3 % (40.0-76.0); PLATELET 163 x1000/uL (130-400); RED BLOOD CELL COUNT 2.83 mill/uL (4.2-5.4); RED CELL DISTRIBUTION WIDTH 17.7 % (11.6-14.6)
[2018-12-08] MEDS ORDERED: GUAI-824 PO (07:43)
[2018-12-08] MEDS ORDERED: ATROV INH (07:44)
[2018-12-08] MEDS ORDERED: METO25TA6 PO (07:45)
[2018-12-08] MEDS: FUROSEMIDE 40MG/4ML VIAL IV SCH ×2 (08:53→20:56)
[2018-12-08] MEDS ORDERED: NON FORMULARY PATIENT HOME MED XX SCH (10:45)
[2018-12-08] MEDS: IPRATROPIUM/ALBUTEROL 0.5-3(2.5)MG/3ML NEB HHN SCH ×3 (11:58→20:20)
[2018-12-08] MEDS: SILDENAFIL CITRATE 20MG TABLET PO SCH ×2 (12:56→21:00)
[2018-12-08 16:17] LABS: CREATINE KINASE MB FRACTION 2.1 ng/mL (0.5-3.6)
[2018-12-08 16:47] LABS: HEPATITIS B SURFACE ANTIGEN NEGATIVE
[2018-12-08 17:17] LABS: HEPATITIS A AB IGM NEGATIVE (NEGATIVE)
[2018-12-08] MEDS: FERROUS SULFATE 325MG TABLET PO SCH (18:05)
[2018-12-09] VITALS (20 sets, daily range): BP systolic 84–139; BP diastolic 47–69
[2018-12-09] MEDS: IPRATROPIUM/ALBUTEROL 0.5-3(2.5)MG/3ML NEB HHN SCH ×6 (00:13→21:14)
[2018-12-09] MEDS: SILDENAFIL CITRATE 20MG TABLET PO SCH ×3 (06:13→22:13)
[2018-12-09 06:55] LABS: BASOPHILS % 0.7 % (0.0-2.0); EOSINOPHILS % 3.8 % (0.0-5.0); HEMATOCRIT. 30.3 % (36.0-48.0); HEMOGLOBIN. 9.7 g/dL (12.0-16.0); LYMPHOCYTES % 15.3 % (20.0-50.0); MEAN CORPUSCULAR HEMOGLOBIN 29.5 pg (28.0-32.0); MEAN CORPUSCULAR VOLUME 92.2 fL (81.0-99.0); MEAN PLATELET VOLUME 9.1 fl (7.4-10.4); MONOCYTES % 10.2 % (2.0-8.0); PLATELET 186 x1000/uL (130-400); RED BLOOD CELL COUNT 3.28 mill/uL (4.2-5.4); RED CELL DISTRIBUTION WIDTH 17.5 % (11.6-14.6)
[2018-12-09] MEDS: BUDESONIDE 0.5MG/2ML NEB HHN SCH ×2 (07:50→21:14)
[2018-12-09] MEDS: FUROSEMIDE 40MG/4ML VIAL IV SCH ×2 (08:25→22:00)
[2018-12-09] MEDS: FERROUS SULFATE 325MG TABLET PO SCH ×3 (08:25→17:20)
[2018-12-09] MEDS: VERAPAMIL HCL 40MG TABLET PO SCH ×2 (14:13→22:12)
[2018-12-10] VITALS (11 sets, daily range): BP systolic 102–133; BP diastolic 52–87
[2018-12-10] MEDS: IPRATROPIUM/ALBUTEROL 0.5-3(2.5)MG/3ML NEB HHN SCH ×5 (02:16→15:30)
[2018-12-10] MEDS: SILDENAFIL CITRATE 20MG TABLET PO SCH ×2 (05:43→16:58)
[2018-12-10] MEDS: VERAPAMIL HCL 40MG TABLET PO SCH ×2 (05:44→16:58)
[2018-12-10] MEDS: BUDESONIDE 0.5MG/2ML NEB HHN SCH (08:34)
[2018-12-10] MEDS: FUROSEMIDE 40MG/4ML VIAL IV SCH (09:56)
[2018-12-10] MEDS: FERROUS SULFATE 325MG TABLET PO SCH ×2 (09:56→16:58)
== END 2018-12-10 19:23 | disposition home or self-care (01) | DRG 291 ==
LOC: ER 18:01 → 3WST 20:02 → EDBEDREQTM 20:06 → EDBEDREQSVC 20:06 → EDBEDREQ 20:06 → ENRESERV 20:58
PROVIDERS: ADMIT Internal Medicine; ATTEND Internal Medicine
PROC: 5A09357 Assistance with Respiratory Ventilation, Less than 24 Consecutive Hours, Continuous Positive Airway Pressure (ICD-10-PCS; principal; 2018-12-07)
PROC: 5A09357 Assistance with Respiratory Ventilation, Less than 24 Consecutive Hours, Continuous Positive Airway Pressure (ICD-10-PCS; 2018-12-08)
PROC: 5A09357 Assistance with Respiratory Ventilation, Less than 24 Consecutive Hours, Continuous Positive Airway Pressure (ICD-10-PCS; 2018-12-10)
DX: I13.0 Hypertensive heart and chronic kidney disease with heart failure and stage 1 through stage 4 chronic kidney disease, or unspecified chronic kidney disease (principal); I50.33 Acute on chronic diastolic (congestive) heart failure; J96.20 Acute and chronic respiratory failure, unspecified whether with hypoxia or hypercapnia; J44.1 Chronic obstructive pulmonary disease with (acute) exacerbation; J84.9 Interstitial pulmonary disease, unspecified; I47.1 Supraventricular tachycardia; R59.0 Localized enlarged lymph nodes; I42.1 Obstructive hypertrophic cardiomyopathy; D50.9 Iron deficiency anemia, unspecified; N18.9 Chronic kidney disease, unspecified; I27.20 Pulmonary hypertension, unspecified; K80.20 Calculus of gallbladder without cholecystitis without obstruction; B18.2 Chronic viral hepatitis C; D72.821 Monocytosis (symptomatic); E07.9 Disorder of thyroid, unspecified; E83.41 Hypermagnesemia; I05.0 Rheumatic mitral stenosis; I45.10 Unspecified right bundle-branch block; I48.91 Unspecified atrial fibrillation; M54.30 Sciatica, unspecified side; Z79.899 Other long term (current) drug therapy; Z87.891 Personal history of nicotine dependence; Z99.81 Dependence on supplemental oxygen; Z88.0 Allergy status to penicillin; Z79.82 Long term (current) use of aspirin
CPT/HCPCS: 36415; 36600; 71045; 76705; 80048; 80061; 80305; 82375; 82550; 82553; 82805; 83605; 83735; 83880; 84443; 84484; 86705; 86709; 86803; 87340; 93005; 93970; 94640; 94660; 96374; 99291; J1940; J7620; J7626

== ENCOUNTER 2018-12-13 12:31 | Inpatient (IN) | payer MEDICARE, MEDICAID ==
[~2018-12-13] VITALS: Ht 181.6 cm; Wt 55.9 kg
[~2018-12-13 12:31] MED LIST changes: +ATROV INH; +GUAI-824 PO; +METO25TA6 PO; -SILD20TA PO
[2018-12-13] MEDS ORDERED: CAPTOPRIL 12.5MG TABLET PO STA (12:48)
[2018-12-13] MEDS ORDERED: IPRATROPIUM BROMIDE (0.02%) 0.5MG/2.5ML NEB HHN STA (12:48)
[2018-12-13] MEDS ORDERED: ALBUTEROL (0.083%) 2.5MG/3ML NEB HHN STA ×2 (12:48→15:30)
[2018-12-13] MEDS ORDERED: METHYLPREDNISOLONE SOD SUCC 125 MG/2 ML VIAL IV STA (12:48)
[2018-12-13] MEDS ORDERED: ASPIRIN 81MG TABLET PO ONE (13:00)
[2018-12-13 13:10] LABS: BASOPHILS % 1.2 % (0.0-2.0); EOSINOPHILS % 0.6 % (0.0-5.0); HEMATOCRIT. 37.4 % (36.0-48.0); HEMOGLOBIN. 11.8 g/dL (12.0-16.0); LYMPHOCYTES % 18.5 % (20.0-50.0); MEAN CORPUSCULAR HEMOGLOBIN 29.5 pg (28.0-32.0); MEAN CORPUSCULAR VOLUME 93.6 fL (81.0-99.0); MEAN PLATELET VOLUME 8.4 fl (7.4-10.4); MONOCYTES % 5.3 % (2.0-8.0); NEUTROPHILS % 74.4 % (40.0-76.0); PLATELET 248 x1000/uL (130-400); RED CELL DISTRIBUTION WIDTH 17.3 % (11.6-14.6)
[2018-12-13 13:15] LABS: CHLORIDE 102 mEq/L (98-107)
[2018-12-13] MEDS ORDERED: MAGNESIUM 2 G PREMIX 50 ML IV ONE (13:15)
[2018-12-13] MEDS ORDERED: TERBUTALINE SULFATE 1MG/ML VIAL SUBCUT ONE (13:15)
[2018-12-13 13:38] LABS: BG BASE EXCESS -1.2 mmol/L (-2.0-2.0); BG BILEVEL POS AIRWAY PRESSURE ST=15/5; BG CARBOXYHEMOGLOBIN 0.5 % (0.5-1.5); BG DEOXYHEMOGLOBIN 0.3 % (0.0-5.0); BG FRACTION INSPIRED OXYGEN 100; BG HCO3 ACT 24.6 mmol/L (22.0-26.0); BG METHEMOGLOBIN 0.5 % (0.0-1.5); BG OXYGEN SATURATION 99.7 % (92.0-98.5); BG OXYHEMOGLOBIN 98.7 % (94.0-97.0); BG PCO2 45.6 mmHg (35.0-45.0); BG PH 7.349 (7.350-7.450); BG PO2 420.9 mmHg (75.0-100.0); BG PRESSURE SUPPORT 10; BG SAMPLE SITE RIGHT BRACHIAL; BG TOTAL HEMOGLOBIN 11.1 g/dL (12.0-18.0); BG VENT MODE MASK - BIPAP; BG VENT RATE 18 set
[2018-12-13 15:59] LABS: BG BASE EXCESS -3.3 mmol/L (-2.0-2.0); BG BILEVEL POS AIRWAY PRESSURE 15/5; BG CARBOXYHEMOGLOBIN 0.6 % (0.5-1.5); BG DEOXYHEMOGLOBIN 1.5 % (0.0-5.0); BG HCO3 ACT 21.7 mmol/L (22.0-26.0); BG METHEMOGLOBIN 0.5 % (0.0-1.5); BG OXYGEN SATURATION 98.5 % (92.0-98.5); BG OXYHEMOGLOBIN 97.4 % (94.0-97.0); BG PCO2 38.6 mmHg (35.0-45.0); BG PH 7.367 (7.350-7.450); BG PO2 118.6 mmHg (75.0-100.0); BG SAMPLE SITE RIGHT RADIAL; BG TOTAL HEMOGLOBIN 11.4 g/dL (12.0-18.0); BG VENT MODE MASK - BIPAP; BG VENT RATE 18 set
[2018-12-13] MEDS ORDERED: CLONIDINE 0.1MG TABLET PO PRN (16:15)
[2018-12-13] MEDS ORDERED: IPRATROPIUM/ALBUTEROL 0.5-3(2.5)MG/3ML NEB HHN PRN (16:15)
[2018-12-13] MEDS ORDERED: ONDANSETRON HCL 4MG/2ML INJ IV PRN (16:15)
[2018-12-13] MEDS: ACETAMINOPHEN 325MG TABLET PO PRN (17:50)
[2018-12-13 22:13] VITALS: BP 137/55
[2018-12-13 22:48] VITALS: BP 137/55
[2018-12-14] VITALS (12 sets, daily range): BP systolic 117–151; BP diastolic 55–78
[2018-12-14] MEDS: FUROSEMIDE 40MG/4ML VIAL IVP SCH ×2 (00:35→21:16)
[2018-12-14] MEDS: SILDENAFIL CITRATE 20MG TABLET PO SCH ×3 (00:35→18:01)
[2018-12-14] MEDS: IPRATROPIUM BROMIDE (0.02%) 0.5MG/2.5ML NEB HHN SCH ×6 (00:43→20:01)
[2018-12-14] MEDS ORDERED: AMLO10TA80 PO (01:27)
[2018-12-14 06:29] LABS: BASOPHILS % 0.3 % (0.0-2.0); HEMOGLOBIN. 8.7 g/dL (12.0-16.0); MEAN CORPUSCULAR HEMOGLOBIN 29.9 pg (28.0-32.0); MEAN CORPUSCULAR VOLUME 92.8 fL (81.0-99.0); NEUTROPHILS % 82.7 % (40.0-76.0); PLATELET 168 x1000/uL (130-400); RED BLOOD CELL COUNT 2.91 mill/uL (4.2-5.4); RED CELL DISTRIBUTION WIDTH 17.1 % (11.6-14.6)
[2018-12-14] MEDS: ACETAMINOPHEN 325MG TABLET PO PRN (06:35)
[2018-12-14] MEDS: NITROGLYCERIN 0.4MG TABLET SL SL PRN ×2 (06:44→06:49)
[2018-12-14] MEDS: AMBRISENTAN PO SCH (08:49)
[2018-12-14] MEDS: ENOXAPARIN 30MG/0.3ML SYR SUBCUT SCH (08:49)
[2018-12-14] MEDS: AMLODIPINE 5MG TABLET PO SCH ×2 (08:50→21:16)
[2018-12-14] MEDS: BUDESONIDE 0.5MG/2ML NEB HHN SCH ×2 (08:51→20:01)
[2018-12-14] MEDS ORDERED: METHYLPREDNISOLONE SOD SUCC 125 MG/2 ML VIAL IV SCH (09:45)
[2018-12-14] MEDS: METHYLPREDNISOLONE SOD SUCC 125 MG/2 ML VIAL IV SCH ×2 (14:43→21:16)
[2018-12-14] MEDS: METOPROLOL TARTRATE 25MG TABLET PO SCH (21:17)
[2018-12-15] VITALS (12 sets, daily range): BP systolic 89–143; BP diastolic 39–98
[2018-12-15] MEDS: IPRATROPIUM BROMIDE (0.02%) 0.5MG/2.5ML NEB HHN SCH ×6 (00:07→21:19)
[2018-12-15] MEDS: SILDENAFIL CITRATE 20MG TABLET PO SCH ×3 (00:10→16:29)
[2018-12-15] MEDS: METHYLPREDNISOLONE SOD SUCC 125 MG/2 ML VIAL IV SCH ×3 (05:44→20:54)
[2018-12-15 06:40] LABS: BASOPHILS % 0.1 % (0.0-2.0); HEMATOCRIT. 26.2 % (36.0-48.0); HEMOGLOBIN. 8.6 g/dL (12.0-16.0); LYMPHOCYTES % 8.6 % (20.0-50.0); MEAN CORPUSCULAR HEMOGLOBIN 30.7 pg (28.0-32.0); MEAN CORPUSCULAR VOLUME 93.6 fL (81.0-99.0); MEAN PLATELET VOLUME 8.9 fl (7.4-10.4); MONOCYTES % 3.2 % (2.0-8.0); NEUTROPHILS % 88.1 % (40.0-76.0); PLATELET 176 x1000/uL (130-400); RED CELL DISTRIBUTION WIDTH 16.9 % (11.6-14.6)
[2018-12-15] MEDS: AMBRISENTAN PO SCH (08:41)
[2018-12-15] MEDS: AMLODIPINE 5MG TABLET PO SCH (08:42)
[2018-12-15] MEDS: METOPROLOL TARTRATE 25MG TABLET PO SCH (08:43)
[2018-12-15] MEDS: ENOXAPARIN 30MG/0.3ML SYR SUBCUT SCH (08:45)
[2018-12-15] MEDS: HYDROCODONE/ACETAMINOPHEN 5/325MG TABLET PO PRN (08:45)
[2018-12-15] MEDS: BUDESONIDE 0.5MG/2ML NEB HHN SCH ×2 (09:01→21:19)
[2018-12-15 12:55] LABS: T4 FREE 1.03 ng/dL (0.76-1.46)
[2018-12-15] MEDS: VERAPAMIL HCL 40MG TABLET PO SCH ×2 (13:21→20:54)
[2018-12-15] MEDS: FUROSEMIDE 40MG/4ML VIAL IVP SCH (20:54)
[2018-12-16] VITALS (12 sets, daily range): BP systolic 113–138; BP diastolic 51–62
[2018-12-16] MEDS: IPRATROPIUM BROMIDE (0.02%) 0.5MG/2.5ML NEB HHN SCH ×7 (00:21→21:22)
[2018-12-16] MEDS: SILDENAFIL CITRATE 20MG TABLET PO SCH ×4 (02:33→23:51)
[2018-12-16] MEDS: VERAPAMIL HCL 40MG TABLET PO SCH ×3 (06:04→20:50)
[2018-12-16] MEDS: METHYLPREDNISOLONE SOD SUCC 125 MG/2 ML VIAL IV SCH ×3 (06:05→20:50)
[2018-12-16 06:55] LABS: BASOPHILS % 0.2 % (0.0-2.0); HEMATOCRIT. 27.3 % (36.0-48.0); HEMOGLOBIN. 8.8 g/dL (12.0-16.0); LYMPHOCYTES % 7.7 % (20.0-50.0); MEAN CORPUSCULAR VOLUME 93.1 fL (81.0-99.0); MEAN PLATELET VOLUME 8.8 fl (7.4-10.4); MONOCYTES % 7.1 % (2.0-8.0); PLATELET 175 x1000/uL (130-400); RED BLOOD CELL COUNT 2.94 mill/uL (4.2-5.4); RED CELL DISTRIBUTION WIDTH 16.8 % (11.6-14.6)
[2018-12-16] MEDS: ENOXAPARIN 30MG/0.3ML SYR SUBCUT SCH (08:30)
[2018-12-16] MEDS: AMBRISENTAN PO SCH (08:30)
[2018-12-16] MEDS: BUDESONIDE 0.5MG/2ML NEB HHN SCH ×2 (09:07→21:23)
[2018-12-16] MEDS: FUROSEMIDE 40MG/4ML VIAL IVP SCH (20:50)
[2018-12-17] VITALS (14 sets, daily range): BP systolic 112–168; BP diastolic 29–68
[2018-12-17] MEDS: IPRATROPIUM BROMIDE (0.02%) 0.5MG/2.5ML NEB HHN SCH ×6 (01:00→20:00)
[2018-12-17] MEDS: METHYLPREDNISOLONE SOD SUCC 125 MG/2 ML VIAL IV SCH ×3 (06:05→22:01)
[2018-12-17] MEDS: VERAPAMIL HCL 40MG TABLET PO SCH ×3 (06:05→22:01)
[2018-12-17 07:20] LABS: BASOPHILS % 0.2 % (0.0-2.0); EOSINOPHILS % 0.2 % (0.0-5.0); HEMATOCRIT. 26.7 % (36.0-48.0); HEMOGLOBIN. 8.2 g/dL (12.0-16.0); LYMPHOCYTES % 9.8 % (20.0-50.0); MEAN CORPUSCULAR HEMOGLOBIN 29.7 pg (28.0-32.0); MEAN CORPUSCULAR VOLUME 96.3 fL (81.0-99.0); MEAN PLATELET VOLUME 9.7 fl (7.4-10.4); MONOCYTES % 4.3 % (2.0-8.0); NEUTROPHILS % 85.5 % (40.0-76.0); PLATELET 161 x1000/uL (130-400); RED BLOOD CELL COUNT 2.77 mill/uL (4.2-5.4); RED CELL DISTRIBUTION WIDTH 16.8 % (11.6-14.6)
[2018-12-17] MEDS: SILDENAFIL CITRATE 20MG TABLET PO SCH ×2 (08:29→17:39)
[2018-12-17] MEDS: ENOXAPARIN 30MG/0.3ML SYR SUBCUT SCH (08:29)
[2018-12-17] MEDS: AMBRISENTAN PO SCH (08:29)
[2018-12-17] MEDS: BUDESONIDE 0.5MG/2ML NEB HHN SCH (09:20)
[2018-12-17] MEDS: HYDROCODONE/ACETAMINOPHEN 5/325MG TABLET PO PRN (10:49)
[2018-12-17] MEDS ORDERED: BISACODYL 5MG TABLET PO PRN (14:00)
[2018-12-17] MEDS ORDERED: LACTULOSE 20G/30ML UDC PO NR (14:00)
[2018-12-17] MEDS: DOCUSATE SODIUM 250MG CAPSULE PO SCH (15:13)
[2018-12-18] VITALS (12 sets, daily range): BP systolic 114–152; BP diastolic 38–93
[2018-12-18] MEDS: IPRATROPIUM BROMIDE (0.02%) 0.5MG/2.5ML NEB HHN SCH ×6 (00:05→20:32)
[2018-12-18] MEDS: SILDENAFIL CITRATE 20MG TABLET PO SCH ×3 (00:45→16:46)
[2018-12-18] MEDS: METHYLPREDNISOLONE SOD SUCC 125 MG/2 ML VIAL IV SCH ×3 (06:44→21:40)
[2018-12-18] MEDS: VERAPAMIL HCL 40MG TABLET PO SCH ×3 (06:45→21:40)
[2018-12-18 07:01] LABS: BASOPHILS % 0.1 % (0.0-2.0); HEMATOCRIT. 26.3 % (36.0-48.0); HEMOGLOBIN. 8.5 g/dL (12.0-16.0); LYMPHOCYTES % 8.7 % (20.0-50.0); MEAN CORPUSCULAR HEMOGLOBIN 29.7 pg (28.0-32.0); MEAN CORPUSCULAR VOLUME 92.1 fL (81.0-99.0); MEAN PLATELET VOLUME 9.1 fl (7.4-10.4); MONOCYTES % 10.4 % (2.0-8.0); NEUTROPHILS % 80.8 % (40.0-76.0); PLATELET 161 x1000/uL (130-400); RED BLOOD CELL COUNT 2.86 mill/uL (4.2-5.4); RED CELL DISTRIBUTION WIDTH 15.8 % (11.6-14.6)
[2018-12-18] MEDS: AMBRISENTAN PO SCH (08:58)
[2018-12-18] MEDS: ENOXAPARIN 30MG/0.3ML SYR SUBCUT SCH (08:59)
[2018-12-18] MEDS: DOCUSATE SODIUM 250MG CAPSULE PO SCH (08:59)
[2018-12-18] MEDS: FUROSEMIDE 20MG TABLET PO SCH (16:45)
[2018-12-18] MEDS: HYDROCODONE/ACETAMINOPHEN 5/325MG TABLET PO PRN (21:41)
[2018-12-19] VITALS (11 sets, daily range): BP systolic 102–152; BP diastolic 44–67
[2018-12-19] MEDS: SILDENAFIL CITRATE 20MG TABLET PO SCH ×4 (00:21→23:42)
[2018-12-19] MEDS: IPRATROPIUM BROMIDE (0.02%) 0.5MG/2.5ML NEB HHN SCH ×6 (00:42→21:24)
[2018-12-19] MEDS: VERAPAMIL HCL 40MG TABLET PO SCH ×3 (06:33→21:54)
[2018-12-19] MEDS: METHYLPREDNISOLONE SOD SUCC 125 MG/2 ML VIAL IV SCH ×3 (06:33→21:54)
[2018-12-19] MEDS: FUROSEMIDE 20MG TABLET PO SCH ×2 (06:33→17:14)
[2018-12-19 07:01] LABS: BASOPHILS % 0.2 % (0.0-2.0); HEMOGLOBIN. 8.7 g/dL (12.0-16.0); LYMPHOCYTES % 9.4 % (20.0-50.0); MEAN CORPUSCULAR HEMOGLOBIN 29.8 pg (28.0-32.0); MEAN CORPUSCULAR VOLUME 92.8 fL (81.0-99.0); MEAN PLATELET VOLUME 9.4 fl (7.4-10.4); NEUTROPHILS % 85.4 % (40.0-76.0); PLATELET 152 x1000/uL (130-400); RED BLOOD CELL COUNT 2.91 mill/uL (4.2-5.4); RED CELL DISTRIBUTION WIDTH 15.8 % (11.6-14.6)
[2018-12-19] MEDS: DOCUSATE SODIUM 250MG CAPSULE PO SCH (08:07)
[2018-12-19] MEDS: AMBRISENTAN PO SCH (08:08)
[2018-12-19] MEDS: ENOXAPARIN 30MG/0.3ML SYR SUBCUT SCH (08:09)
[2018-12-19] MEDS ORDERED: SODIUM POLYSTYRENE SULFONATE 15 G/60 ML BOT PO NR (10:30)
[2018-12-19] MEDS: HYDROCODONE/ACETAMINOPHEN 5/325MG TABLET PO PRN ×2 (14:31→21:57)
[2018-12-19] MEDS: ACETAMINOPHEN 325MG TABLET PO PRN (17:26)
[2018-12-20] VITALS (13 sets, daily range): BP systolic 108–154; BP diastolic 46–65
[2018-12-20] MEDS: IPRATROPIUM BROMIDE (0.02%) 0.5MG/2.5ML NEB HHN SCH ×6 (01:23→20:13)
[2018-12-20] MEDS: FUROSEMIDE 20MG TABLET PO SCH ×2 (06:22→16:14)
[2018-12-20] MEDS: VERAPAMIL HCL 40MG TABLET PO SCH ×3 (06:23→21:10)
[2018-12-20] MEDS: METHYLPREDNISOLONE SOD SUCC 125 MG/2 ML VIAL IV SCH ×3 (06:24→21:10)
[2018-12-20 06:28] LABS: BASOPHILS % 0.1 % (0.0-2.0); HEMATOCRIT. 26.9 % (36.0-48.0); HEMOGLOBIN. 8.6 g/dL (12.0-16.0); LYMPHOCYTES % 11.2 % (20.0-50.0); MEAN CORPUSCULAR HEMOGLOBIN 29.4 pg (28.0-32.0); MEAN CORPUSCULAR VOLUME 91.8 fL (81.0-99.0); MEAN PLATELET VOLUME 9.4 fl (7.4-10.4); MONOCYTES % 5.7 % (2.0-8.0); PLATELET 147 x1000/uL (130-400); RED BLOOD CELL COUNT 2.93 mill/uL (4.2-5.4)
[2018-12-20] MEDS: SILDENAFIL CITRATE 20MG TABLET PO SCH ×2 (09:21→16:11)
[2018-12-20] MEDS: DOCUSATE SODIUM 250MG CAPSULE PO SCH (09:21)
[2018-12-20] MEDS: ENOXAPARIN 30MG/0.3ML SYR SUBCUT SCH (09:22)
[2018-12-20] MEDS: AMBRISENTAN PO SCH (09:22)
[2018-12-20] MEDS: HYDROCODONE/ACETAMINOPHEN 5/325MG TABLET PO PRN ×2 (12:48→21:32)
[2018-12-21] VITALS (13 sets, daily range): BP systolic 121–155; BP diastolic 39–65
[2018-12-21] MEDS: SILDENAFIL CITRATE 20MG TABLET PO SCH ×4 (00:22→23:32)
[2018-12-21] MEDS: IPRATROPIUM BROMIDE (0.02%) 0.5MG/2.5ML NEB HHN SCH ×6 (00:38→20:20)
[2018-12-21] MEDS: FUROSEMIDE 20MG TABLET PO SCH ×2 (06:44→16:46)
[2018-12-21] MEDS: METHYLPREDNISOLONE SOD SUCC 125 MG/2 ML VIAL IV SCH ×3 (06:44→21:54)
[2018-12-21] MEDS: VERAPAMIL HCL 40MG TABLET PO SCH ×3 (06:44→21:54)
[2018-12-21] MEDS: AMBRISENTAN PO SCH (08:17)
[2018-12-21] MEDS: DOCUSATE SODIUM 250MG CAPSULE PO SCH (08:17)
[2018-12-21] MEDS: ENOXAPARIN 30MG/0.3ML SYR SUBCUT SCH (08:19)
[2018-12-21 13:00] LABS: MEAN CORPUSCULAR HEMOGLOBIN 29.1 pg (28.0-32.0); MEAN CORPUSCULAR VOLUME 91.6 fL (81.0-99.0); MEAN PLATELET VOLUME 9.6 fl (7.4-10.4); PLATELET 159 x1000/uL (130-400); RED BLOOD CELL COUNT 3.41 mill/uL (4.2-5.4); RED CELL DISTRIBUTION WIDTH 16.3 % (11.6-14.6)
[2018-12-21 13:01] LABS: HEMATOCRIT. 31.3 % (36.0-48.0); HEMOGLOBIN. 9.9 g/dL (12.0-16.0)
[2018-12-21] MEDS: HYDROCODONE/ACETAMINOPHEN 5/325MG TABLET PO PRN (13:48)
[2018-12-21 16:45] LABS: PLATELET ESTIMATE NORMAL
[2018-12-22] VITALS (12 sets, daily range): BP systolic 119–157; BP diastolic 36–55
[2018-12-22] MEDS: IPRATROPIUM BROMIDE (0.02%) 0.5MG/2.5ML NEB HHN SCH ×6 (00:30→20:44)
[2018-12-22] MEDS: METHYLPREDNISOLONE SOD SUCC 125 MG/2 ML VIAL IV SCH ×3 (06:13→21:45)
[2018-12-22] MEDS: VERAPAMIL HCL 40MG TABLET PO SCH ×3 (06:13→21:45)
[2018-12-22] MEDS: SILDENAFIL CITRATE 20MG TABLET PO SCH ×2 (08:54→17:09)
[2018-12-22] MEDS: DOCUSATE SODIUM 250MG CAPSULE PO SCH (08:54)
[2018-12-22] MEDS: FUROSEMIDE 20MG TABLET PO SCH ×2 (08:54→17:09)
[2018-12-22] MEDS: AMBRISENTAN PO SCH (08:55)
[2018-12-22] MEDS: ENOXAPARIN 30MG/0.3ML SYR SUBCUT SCH (08:55)
[2018-12-22 09:35] LABS: HEMATOCRIT. 32.2 % (36.0-48.0); HEMOGLOBIN. 10.1 g/dL (12.0-16.0); MEAN CORPUSCULAR HEMOGLOBIN 28.8 pg (28.0-32.0); MEAN CORPUSCULAR VOLUME 91.4 fL (81.0-99.0); MEAN PLATELET VOLUME 9.7 fl (7.4-10.4); PLATELET 152 x1000/uL (130-400); RED BLOOD CELL COUNT 3.52 mill/uL (4.2-5.4); RED CELL DISTRIBUTION WIDTH 16.1 % (11.6-14.6)
[2018-12-22] MEDS: HYDROCODONE/ACETAMINOPHEN 5/325MG TABLET PO PRN (11:50)
[2018-12-22 13:40] LABS: PLATELET ESTIMATE NORMAL
[2018-12-23] VITALS (12 sets, daily range): BP systolic 114–152; BP diastolic 47–62
[2018-12-23] MEDS: IPRATROPIUM BROMIDE (0.02%) 0.5MG/2.5ML NEB HHN SCH ×6 (00:09→20:53)
[2018-12-23] MEDS: SILDENAFIL CITRATE 20MG TABLET PO SCH ×4 (01:00→23:38)
[2018-12-23] MEDS: HYDROCODONE/ACETAMINOPHEN 5/325MG TABLET PO PRN ×2 (05:50→19:59)
[2018-12-23] MEDS: VERAPAMIL HCL 40MG TABLET PO SCH ×3 (05:51→21:21)
[2018-12-23] MEDS: METHYLPREDNISOLONE SOD SUCC 125 MG/2 ML VIAL IV SCH ×3 (05:51→21:21)
[2018-12-23] MEDS: FUROSEMIDE 20MG TABLET PO SCH ×2 (08:30→16:27)
[2018-12-23] MEDS: DOCUSATE SODIUM 250MG CAPSULE PO SCH (08:30)
[2018-12-23] MEDS: ENOXAPARIN 30MG/0.3ML SYR SUBCUT SCH (08:31)
[2018-12-23] MEDS: AMBRISENTAN PO SCH (08:32)
[2018-12-24] VITALS (16 sets, daily range): BP systolic 131–160; BP diastolic 44–73
[2018-12-24] MEDS: IPRATROPIUM BROMIDE (0.02%) 0.5MG/2.5ML NEB HHN SCH ×6 (01:14→20:51)
[2018-12-24] MEDS: METHYLPREDNISOLONE SOD SUCC 125 MG/2 ML VIAL IV SCH ×3 (06:19→22:11)
[2018-12-24] MEDS: FUROSEMIDE 20MG TABLET PO SCH ×2 (06:19→17:00)
[2018-12-24] MEDS: VERAPAMIL HCL 40MG TABLET PO SCH ×3 (06:19→22:11)
[2018-12-24] MEDS: SILDENAFIL CITRATE 20MG TABLET PO SCH ×2 (08:46→17:00)
[2018-12-24] MEDS: DOCUSATE SODIUM 250MG CAPSULE PO SCH (08:46)
[2018-12-24] MEDS: AMBRISENTAN PO SCH (08:51)
[2018-12-24] MEDS: ENOXAPARIN 30MG/0.3ML SYR SUBCUT SCH (08:51)
[2018-12-24] MEDS: HYDROCODONE/ACETAMINOPHEN 5/325MG TABLET PO PRN ×2 (15:11→21:12)
[2018-12-24 15:26] LABS: HEMATOCRIT 33.6 % (36.0-48.0); HEMOGLOBIN 10.7 g/dL (12.0-16.0); MEAN CORPUSCULAR HEMOGLOBIN 28.7 pg (28.0-32.0); MEAN CORPUSCULAR VOLUME 90.4 fL (81.0-99.0); PLATELET 157 x1000/uL (130-400); RED BLOOD CELL COUNT 3.72 mill/uL (4.2-5.4); RED CELL DISTRIBUTION WIDTH 16.2 % (11.6-14.6)
[2018-12-25] VITALS (13 sets, daily range): BP systolic 121–176; BP diastolic 47–69
[2018-12-25] MEDS: SILDENAFIL CITRATE 20MG TABLET PO SCH ×3 (00:45→16:53)
[2018-12-25] MEDS: IPRATROPIUM BROMIDE (0.02%) 0.5MG/2.5ML NEB HHN SCH ×8 (00:55→20:33)
[2018-12-25] MEDS: METHYLPREDNISOLONE SOD SUCC 125 MG/2 ML VIAL IV SCH (05:46)
[2018-12-25] MEDS: VERAPAMIL HCL 40MG TABLET PO SCH ×3 (05:47→21:30)
[2018-12-25] MEDS: FUROSEMIDE 20MG TABLET PO SCH ×2 (05:47→16:53)
[2018-12-25] MEDS: DOCUSATE SODIUM 250MG CAPSULE PO SCH (08:51)
[2018-12-25] MEDS: AMBRISENTAN PO SCH (08:51)
[2018-12-25] MEDS: ENOXAPARIN 40MG/0.4ML SYR SUBCUT SCH (08:52)
[2018-12-25] MEDS: HYDROCODONE/ACETAMINOPHEN 5/325MG TABLET PO PRN (10:21)
[2018-12-25] MEDS: METHYLPREDNISOLONE SOD SUCC 40 MG/ML VIAL IV SCH (18:07)
[2018-12-26] VITALS (7 sets, daily range): BP systolic 120–135; BP diastolic 37–65
[2018-12-26] MEDS: IPRATROPIUM BROMIDE (0.02%) 0.5MG/2.5ML NEB HHN SCH ×6 (00:29→20:19)
[2018-12-26] MEDS: SILDENAFIL CITRATE 20MG TABLET PO SCH ×3 (00:40→17:24)
[2018-12-26] MEDS: HYDROCODONE/ACETAMINOPHEN 5/325MG TABLET PO PRN ×2 (00:45→12:23)
[2018-12-26] MEDS: VERAPAMIL HCL 40MG TABLET PO SCH ×3 (06:22→21:26)
[2018-12-26] MEDS: METHYLPREDNISOLONE SOD SUCC 40 MG/ML VIAL IV SCH (06:22)
[2018-12-26] MEDS: FUROSEMIDE 20MG TABLET PO SCH ×2 (06:22→17:24)
[2018-12-26] MEDS: DOCUSATE SODIUM 250MG CAPSULE PO SCH (09:11)
[2018-12-26] MEDS: AMBRISENTAN PO SCH (09:11)
[2018-12-26] MEDS: ENOXAPARIN 40MG/0.4ML SYR SUBCUT SCH (09:12)
[2018-12-26] MEDS: ACETAMINOPHEN 325MG TABLET PO PRN (09:13)
[2018-12-27] VITALS: BP 135/50
[2018-12-27] MEDS: SILDENAFIL CITRATE 20MG TABLET PO SCH ×3 (01:02→17:16)
[2018-12-27] MEDS: IPRATROPIUM BROMIDE (0.02%) 0.5MG/2.5ML NEB HHN SCH ×6 (01:04→20:46)
[2018-12-27 04:00] VITALS: BP 128/50
[2018-12-27 05:37] LABS: BASOPHILS % 0.2 % (0.0-2.0); EOSINOPHILS % 0.3 % (0.0-5.0); HEMATOCRIT. 29.2 % (36.0-48.0); HEMOGLOBIN. 9.4 g/dL (12.0-16.0); LYMPHOCYTES % 11.2 % (20.0-50.0); MEAN CORPUSCULAR HEMOGLOBIN 28.8 pg (28.0-32.0); MEAN CORPUSCULAR VOLUME 89.5 fL (81.0-99.0); MEAN PLATELET VOLUME 9.5 fl (7.4-10.4); MONOCYTES % 13.5 % (2.0-8.0); NEUTROPHILS % 74.8 % (40.0-76.0); PLATELET 127 x1000/uL (130-400); RED BLOOD CELL COUNT 3.26 mill/uL (4.2-5.4); RED CELL DISTRIBUTION WIDTH 15.7 % (11.6-14.6)
[2018-12-27] MEDS: FUROSEMIDE 20MG TABLET PO SCH ×2 (06:35→17:16)
[2018-12-27] MEDS: VERAPAMIL HCL 40MG TABLET PO SCH ×3 (06:35→21:15)
[2018-12-27] MEDS: HYDROCODONE/ACETAMINOPHEN 5/325MG TABLET PO PRN (06:50)
[2018-12-27 08:00] VITALS: BP 127/48
[2018-12-27] MEDS: PREDNISONE 20MG TABLET PO SCH (08:34)
[2018-12-27] MEDS: ENOXAPARIN 40MG/0.4ML SYR SUBCUT SCH (08:35)
[2018-12-27] MEDS: DOCUSATE SODIUM 250MG CAPSULE PO SCH (08:36)
[2018-12-27] MEDS: AMBRISENTAN PO SCH (08:37)
[2018-12-27 12:00] VITALS: BP 117/41
[2018-12-27 16:00] VITALS: BP 118/44
[2018-12-27 20:00] VITALS: BP 125/45
[2018-12-28] VITALS: BP 141/51
[2018-12-28] MEDS: IPRATROPIUM BROMIDE (0.02%) 0.5MG/2.5ML NEB HHN SCH ×6 (00:47→21:48)
[2018-12-28] MEDS: SILDENAFIL CITRATE 20MG TABLET PO SCH ×3 (00:55→15:55)
[2018-12-28 04:00] VITALS: BP 118/43
[2018-12-28] MEDS: FUROSEMIDE 20MG TABLET PO SCH ×2 (05:46→17:42)
[2018-12-28] MEDS: VERAPAMIL HCL 40MG TABLET PO SCH ×3 (05:47→21:02)
[2018-12-28] MEDS: DOCUSATE SODIUM 250MG CAPSULE PO SCH (08:37)
[2018-12-28] MEDS: PREDNISONE 20MG TABLET PO SCH (08:38)
[2018-12-28] MEDS: ENOXAPARIN 40MG/0.4ML SYR SUBCUT SCH (08:40)
[2018-12-28] MEDS: AMBRISENTAN PO SCH (08:51)
[2018-12-28 12:06] VITALS: BP 127/43
[2018-12-28 15:05] VITALS: BP 145/56
[2018-12-28 20:00] VITALS: BP 130/45
[2018-12-29] VITALS: BP 134/55
[2018-12-29] MEDS: SILDENAFIL CITRATE 20MG TABLET PO SCH ×3 (00:43→15:42)
[2018-12-29] MEDS: IPRATROPIUM BROMIDE (0.02%) 0.5MG/2.5ML NEB HHN SCH ×7 (01:01→23:58)
[2018-12-29 04:00] VITALS: BP 135/47
[2018-12-29] MEDS: VERAPAMIL HCL 40MG TABLET PO SCH ×3 (06:21→22:19)
[2018-12-29] MEDS: FUROSEMIDE 20MG TABLET PO SCH ×2 (06:21→18:08)
[2018-12-29 08:37] VITALS: BP 136/54
[2018-12-29] MEDS: ENOXAPARIN 40MG/0.4ML SYR SUBCUT SCH (09:06)
[2018-12-29] MEDS: DOCUSATE SODIUM 250MG CAPSULE PO SCH (09:07)
[2018-12-29] MEDS: AMBRISENTAN PO SCH (09:07)
[2018-12-29 12:00] VITALS: BP 118/42
[2018-12-29] MEDS ORDERED: FUROSEMIDE 40MG/4ML VIAL IVP NR (16:15)
[2018-12-29 16:41] VITALS: BP 133/43
[2018-12-29 20:00] VITALS: BP 149/53
[2018-12-29] MEDS: BUDESONIDE 0.5MG/2ML NEB HHN SCH (20:59)
[2018-12-30] VITALS: BP 139/43
[2018-12-30] MEDS: IPRATROPIUM BROMIDE (0.02%) 0.5MG/2.5ML NEB HHN SCH ×3 (03:26→12:35)
[2018-12-30 04:00] VITALS: BP 138/48
[2018-12-30] MEDS: FUROSEMIDE 20MG TABLET PO SCH (06:12)
[2018-12-30] MEDS: VERAPAMIL HCL 40MG TABLET PO SCH ×2 (06:12→13:32)
[2018-12-30] MEDS: BUDESONIDE 0.5MG/2ML NEB HHN SCH (07:54)
[2018-12-30] MEDS: SILDENAFIL CITRATE 20MG TABLET PO SCH ×3 (08:38→17:07)
[2018-12-30] MEDS: ENOXAPARIN 40MG/0.4ML SYR SUBCUT SCH (08:39)
[2018-12-30] MEDS: DOCUSATE SODIUM 250MG CAPSULE PO SCH (08:39)
[2018-12-30] MEDS: AMBRISENTAN PO SCH (08:39)
[2018-12-30 15:49] VITALS: BP 125/78
[2018-12-30] MEDS ORDERED: FUROSEMIDE 40MG TABLET PO SCH (17:15)
== END 2018-12-30 19:00 | DRG 682 ==
LOC: ER 12:31 → 3WST 15:41 → EDBEDREQTM 15:45 → EDBEDREQSVC 17:56 → ENRESERV 20:23 → 6WST 12-25 17:20
PROVIDERS: ADMIT Internal Medicine; ATTEND Internal Medicine
PROC: 5A09357 Assistance with Respiratory Ventilation, Less than 24 Consecutive Hours, Continuous Positive Airway Pressure (ICD-10-PCS; principal; 2018-12-13)
PROC: 5A09357 Assistance with Respiratory Ventilation, Less than 24 Consecutive Hours, Continuous Positive Airway Pressure (ICD-10-PCS; 2018-12-14)
PROC: 5A09357 Assistance with Respiratory Ventilation, Less than 24 Consecutive Hours, Continuous Positive Airway Pressure (ICD-10-PCS; 2018-12-15)
DX: N17.9 Acute kidney failure, unspecified (principal); J96.20 Acute and chronic respiratory failure, unspecified whether with hypoxia or hypercapnia; I50.33 Acute on chronic diastolic (congestive) heart failure; I13.0 Hypertensive heart and chronic kidney disease with heart failure and stage 1 through stage 4 chronic kidney disease, or unspecified chronic kidney disease; J44.1 Chronic obstructive pulmonary disease with (acute) exacerbation; J84.9 Interstitial pulmonary disease, unspecified; E87.2 Acidosis; I42.1 Obstructive hypertrophic cardiomyopathy; B19.20 Unspecified viral hepatitis C without hepatic coma; I27.20 Pulmonary hypertension, unspecified; I48.91 Unspecified atrial fibrillation; N18.9 Chronic kidney disease, unspecified; Z87.891 Personal history of nicotine dependence; D64.9 Anemia, unspecified; E07.9 Disorder of thyroid, unspecified; M54.30 Sciatica, unspecified side; R59.0 Localized enlarged lymph nodes; K80.20 Calculus of gallbladder without cholecystitis without obstruction; I08.1 Rheumatic disorders of both mitral and tricuspid valves; K46.9 Unspecified abdominal hernia without obstruction or gangrene; K59.00 Constipation, unspecified; R74.8 Abnormal levels of other serum enzymes; Z88.0 Allergy status to penicillin; Z79.899 Other long term (current) drug therapy; Z99.81 Dependence on supplemental oxygen; Z79.82 Long term (current) use of aspirin
CPT/HCPCS: 36415; 36600; 71045; 80048; 82375; 82805; 83735; 83880; 84134; 84439; 84443; 84481; 84484; 85027; 93005; 94640; 94644; 94660; 96365; 96372; 96375; 97162; 97164; 99291; A6261; C1893; J1650; J1940; J2405; J2920; J2930; J3105; J3475; J7040; J7512; J7611; J7620; J7626

== ENCOUNTER 2019-11-02 18:44 | Inpatient (IN) | payer MEDICARE, MEDICAID ==
[~2019-11-02] VITALS: Ht 151.1 cm; Wt 52.6 kg
[~2019-11-02 18:44] MED LIST changes: -ALBU6.7H INH; -AMLO5TAB88 PO; -ASPI-1158 PO; -AZIT250T12 PO; -FERR300S PO; +FLUT15.844 BOTHNSTRLS; -FLUT15.88 BOTHNSTRLS; -GUAI-740 MT; -METO25TA6 PO; -PANT40TA4 PO; -TIOT18CA3 IH; -UMEC1DIS IH; -VERA80TA2 MT; +VERA80TA7 MT
[2019-11-02] MEDS ORDERED: METHYLPREDNISOLONE SOD SUCC 125 MG/2 ML VIAL IV STA (19:08)
[2019-11-02] MEDS ORDERED: MAGNESIUM 2 G PREMIX 50 ML IV ONE (19:15)
[2019-11-02] MEDS ORDERED: ALBUTEROL 6.7GM HFA INHALER ORI PRN (19:15)
[2019-11-02 19:33] LABS: BASOPHILS % 0.7 % (0.0-2.0); EOSINOPHILS % 6.4 % (0.0-5.0); HEMOGLOBIN. 14.8 g/dL (12.0-16.0); LYMPHOCYTES % 23.4 % (20.0-50.0); MEAN PLATELET VOLUME 9.1 fl (7.4-10.4); MONOCYTES % 9.9 % (2.0-8.0); NEUTROPHILS % 59.6 % (40.0-76.0); PLATELET 199 x1000/uL (130-400); RED BLOOD CELL COUNT 5.11 mill/uL (4.2-5.4); RED CELL DISTRIBUTION WIDTH 16.2 % (11.6-14.6)
[2019-11-02 19:40] LABS: CHLORIDE 103 mEq/L (98-107)
[2019-11-03] MEDS ORDERED: ONDANSETRON HCL 4MG/2ML INJ IV PRN (08:30)
[2019-11-03] MEDS ORDERED: ACETAMINOPHEN 325MG TABLET PO PRN ×2 (08:30→23:00)
[2019-11-03] MEDS ORDERED: AMLODIPINE 5MG TABLET PO NR (10:15)
[2019-11-03] MEDS: FUROSEMIDE 40MG/4ML VIAL IVP SCH (10:24)
[2019-11-03] MEDS ORDERED: IOHEXOL-350 100 ML BOTTLE ONE (13:24)
[2019-11-03] MEDS ORDERED: AZITHROMYCIN 500 MG TABLET PO NR (17:00)
[2019-11-03] MEDS ORDERED: CEFTRIAXONE 1 G PREMIX 50 ML IV NR (17:00)
[2019-11-03 22:00] VITALS: BP 135/57
[2019-11-03] MEDS ORDERED: AMLODIPINE 5MG TABLET PO SCH (22:13)
[2019-11-03] MEDS ORDERED: MORPHINE SULFATE 2 MG/ML CPJ (NOT FOR IM USE) IV PRN (23:00)
[2019-11-03] MEDS ORDERED: IPRATROPIUM/ALBUTEROL 0.5-3(2.5)MG/3ML NEB ORI SCH (23:00)
[2019-11-03] MEDS ORDERED: IPRATROPIUM/ALBUTEROL 0.5-3(2.5)MG/3ML NEB ORI PRN (23:12)
[2019-11-04] VITALS: BP 145/65
[2019-11-04 04:00] VITALS: BP 136/58
[2019-11-04 06:08] LABS: BASOPHILS % 0.3 % (0.0-2.0); EOSINOPHILS % 0.5 % (0.0-5.0); HEMATOCRIT. 41.1 % (36.0-48.0); HEMOGLOBIN. 13.4 g/dL (12.0-16.0); LYMPHOCYTES % 14.5 % (20.0-50.0); MEAN CORPUSCULAR VOLUME 88.8 fL (81.0-99.0); MEAN PLATELET VOLUME 9.3 fl (7.4-10.4); NEUTROPHILS % 74.7 % (40.0-76.0); PLATELET 176 x1000/uL (130-400); RED BLOOD CELL COUNT 4.63 mill/uL (4.2-5.4)
[2019-11-04] MEDS: VERAPAMIL HCL 80 MG TABLET PO SCH ×3 (06:46→21:13)
[2019-11-04] MEDS: SILDENAFIL CITRATE 20MG TABLET PO SCH ×3 (06:47→21:13)
[2019-11-04 08:00] VITALS: BP 128/60
[2019-11-04] MEDS: FUROSEMIDE 40MG/4ML VIAL IVP SCH (09:00)
[2019-11-04] MEDS ORDERED: ALBUTEROL 6.7GM HFA INHALER ORI SCH (09:00)
[2019-11-04] MEDS ORDERED: AMLODIPINE 5MG TABLET PO SCH (09:00)
[2019-11-04] MEDS ORDERED: FUROSEMIDE 40MG TABLET PO SCH (09:00)
[2019-11-04] MEDS: DOCUSATE SODIUM 100MG CAPSULE PO SCH ×2 (09:01→17:11)
[2019-11-04] MEDS: POTASSIUM CHLORIDE 20MEQ TABLET SR PO SCH (09:01)
[2019-11-04] MEDS: ENOXAPARIN 30MG/0.3ML SYR SUBCUT SCH (09:02)
[2019-11-04 11:58] LABS: CLARITY URINE CLEAR (CLEAR); COLOR URINE YELLOW (YELLOW); KETONES URINE NEGATIVE (NEGATIVE); LEUKOCYTE ESTERASE URINE NEGATIVE (NEGATIVE); NITRITE URINE NEGATIVE (NEGATIVE); OCCULT BLOOD URINE NEGATIVE (NEGATIVE); PROTEIN URINE TRACE (NEGATIVE); SPECIFIC GRAVITY URINE 1.017 (1.005-1.030); UROBILINOGEN URINE 0.2 E.U./dL (0.2-1.0)
[2019-11-04 12:00] VITALS: BP 145/77
[2019-11-04 16:00] VITALS: BP 124/58
[2019-11-04] MEDS ORDERED: CEFTRIAXONE 1 G PREMIX 50 ML IV SCH (17:00)
[2019-11-04] MEDS ORDERED: AZITHROMYCIN 250 MG TABLET PO SCH (17:00)
[2019-11-04] MEDS ORDERED: NON FORMULARY PATIENT HOME MED XX SCH (18:45)
[2019-11-04 20:00] VITALS: BP 138/62
[2019-11-04] MEDS ORDERED: FLUTICASONE FUROATE 100 1 INH/CAP ORI SCH (21:00)
[2019-11-04] MEDS ORDERED: ATORVASTATIN CALCIUM 20MG TABLET PO SCH (21:00)
[2019-11-05] VITALS: BP 130/62
[2019-11-05 04:00] VITALS: BP 135/52
[2019-11-05] MEDS: SILDENAFIL CITRATE 20MG TABLET PO SCH ×2 (06:42→13:53)
[2019-11-05] MEDS: VERAPAMIL HCL 80 MG TABLET PO SCH ×2 (06:42→13:53)
[2019-11-05 08:00] VITALS: BP 111/54
[2019-11-05] MEDS: FUROSEMIDE 40MG/4ML VIAL IVP SCH (10:04)
[2019-11-05] MEDS: POTASSIUM CHLORIDE 20MEQ TABLET SR PO SCH (10:04)
[2019-11-05] MEDS: ENOXAPARIN 30MG/0.3ML SYR SUBCUT SCH (10:04)
[2019-11-05] MEDS: DOCUSATE SODIUM 100MG CAPSULE PO SCH (10:05)
[2019-11-05 12:00] VITALS: BP 134/64
[2019-11-05] MEDS ORDERED: IPRATROPIUM/ALBUTEROL 0.5-3(2.5)MG/3ML NEB HHN SCH (14:00)
[2019-11-05 16:00] VITALS: BP 118/58
== END 2019-11-05 19:45 | disposition home or self-care (01) | DRG 291 ==
LOC: ER 18:44 → 7WST 23:46 → EDBEDREQTM 23:57 → EDBEDREQ 23:57 → ENRESERV 11-03 20:33 → 5WST 11-05 03:35
PROVIDERS: ADMIT Internal Medicine; ATTEND Internal Medicine
DX: I13.0 Hypertensive heart and chronic kidney disease with heart failure and stage 1 through stage 4 chronic kidney disease, or unspecified chronic kidney disease (principal); I50.33 Acute on chronic diastolic (congestive) heart failure; J96.20 Acute and chronic respiratory failure, unspecified whether with hypoxia or hypercapnia; J18.9 Pneumonia, unspecified organism; J44.0 Chronic obstructive pulmonary disease with (acute) lower respiratory infection; I42.1 Obstructive hypertrophic cardiomyopathy; D64.9 Anemia, unspecified; I27.20 Pulmonary hypertension, unspecified; K80.20 Calculus of gallbladder without cholecystitis without obstruction; M54.30 Sciatica, unspecified side; I08.1 Rheumatic disorders of both mitral and tricuspid valves; B19.20 Unspecified viral hepatitis C without hepatic coma; N18.9 Chronic kidney disease, unspecified; E78.5 Hyperlipidemia, unspecified; I25.10 Atherosclerotic heart disease of native coronary artery without angina pectoris; I45.10 Unspecified right bundle-branch block; R59.0 Localized enlarged lymph nodes; I48.0 Paroxysmal atrial fibrillation; R79.89 Other specified abnormal findings of blood chemistry; K46.9 Unspecified abdominal hernia without obstruction or gangrene; Z20.828 Contact with and (suspected) exposure to other viral communicable diseases; Z99.81 Dependence on supplemental oxygen; Z87.891 Personal history of nicotine dependence; Z88.0 Allergy status to penicillin; Z79.899 Other long term (current) drug therapy
CPT/HCPCS: 36415; 71045; 71275; 80048; 80053; 80061; 81003; 83880; 84145; 84484; 85025; 87635; 93005; 93306; 96365; 96367; 96375; 99285; J0696; J1650; J1940; J2405; J2930; J3475; Q9967